=== PATIENT | male | born 1955 | race Two or more races ===

== ENCOUNTER 2017-09-05 21:45 | Emergency (ER) | payer MEDICARE ==
--- NOTE | 2017-09-05 22:09 | RADIOLOGY REPORT (SQ) ---
EXAM DESCRIPTION: CT HEAD WITHOUT COMPLETED DATE/TIME: 09/05/2017 9:54 pm REASON FOR STUDY: stroke alert COMPARISON: None. TECHNIQUE: Axial images acquired through the brain without intravenous contrast. Images reviewed wi th bone, brain and subdural windows. Images stored on PACS. All CT scanners at this facility use dose modulation, iterative reconstruction, and/or weight based d osing when appropriate to reduce radiation dose to as low as reasonably achievable (ALARA). [facility]: Dose Right [facility]: CareDose [facility]: Dose Right [facility]: Teradose 4D [facility]: [employer] RADIATION DOSE: CT Rad equipment meets quality standard of care and radiation dose reduction techniq ues were employed. CTDIvol: 64.6 mGy. DLP: 1163 mGy-cm. mGy. LIMITATIONS: None. FINDINGS: VENTRICLES: Normal. CEREBRUM: No masses. No hemorrhage. No midline shift. Areas of low density in the white matter mos t likely due to chronic micro-vascular ischemic change. Note is made of a lacunar infarct involving the left caudate. No evidence for acute infarction. CEREBELLUM: No masses. No hemorrhage. No alteration of density. No evidence for acute infarction. EXTRAAXIAL SPACES: No fluid collections. No masses. ORBITS AND GLOBE: No intra- or extraconal masses. Normal contour of globe without masses. CALVARIUM: No fracture. PARANASAL SINUSES: No fluid or mucosal thickening. SOFT TISSUES: No mass or hematoma. OTHER: No other significant finding. IMPRESSION: MILD CHRONIC CHANGES OF MICROVASCULAR ISCHEMIA. NO ACUTE PROCESS. EVIDENCE OF ACUTE STROKE: NO. COMMENT: Pertinent positive or negative findings of the imaging study reported as a CRITICAL EXAM t o TIKI Vis at22:02 on 09/05/2017. Category of Critical Exam: Stroke protocol TECHNICAL DOCUMENTATION: JOB ID: [id number] Quality ID # [id number]: Final reports with documentation of one or more dose reduction techniques (e.g., Au tomated exposure control, adjustment of the mA and/or kV according to patient size, use of iterative reconstruction technique) 2010 [employer]- All Rights Reserved
[2017-09-05 22:12] LABS: ABSOLUTE BASOPHILS # (AUTO) 0.1 10^3/uL (0.0-0.2); ABSOLUTE EOSINOPHILS # (AUTO) 0.2 10^3/uL (0.0-0.6); ABSOLUTE LYMPHOCYTES (AUTO) 1.8 10^3/uL (0.5-4.7); ABSOLUTE MONOCYTES (AUTO) 0.9 10^3/uL (0.1-1.4); ABSOLUTE NEUT (AUTO) 4.9 10^3/uL (1.7-8.2); BASOPHILS % (AUTO) 0.9 % (0-2); HEMATOCRIT 44.6 % (37.9-51.0); HEMOGLOBIN 14.8 g/dL (13.5-17.0); LYMPHOCYTES % (AUTO) 23.1 % (13-45); MEAN CORPUSCULAR HEMOGLOBIN 29.4 pg (27.0-33.4); MEAN CORPUSCULAR HGB CONC 33.2 g/dL (32.0-36.0); MEAN CORPUSCULAR VOLUME 89 fl (80-97); MONOCYTES % (AUTO) 11.5 % (3-13); PLATELET COUNT 229 10^3/uL (150-450); RED BLOOD COUNT 5.04 10^6/uL (4.35-5.55); RED CELL DISTRIBUTION WIDTH 14.6 % (11.5-14.0); SEGMENTED NEUTROPHILS % (AUTO) 62.5 % (42-78); TOTAL CELLS COUNTED % (AUTO) 100 %; WHITE BLOOD COUNT 7.8 10^3/uL (4.0-10.5)
--- NOTE | 2017-09-05 22:16 | RADIOLOGY REPORT (SQ) ---
EXAM DESCRIPTION: CHEST SINGLE VIEW COMPLETED DATE/TIME: 09/05/2017 9:51 pm REASON FOR STUDY: stroke alert COMPARISON: None. EXAM PARAMETERS: NUMBER OF VIEWS: One view. TECHNIQUE: Single frontal radiographic view of the chest acquired. RADIATION DOSE: NA LIMITATIONS: None. FINDINGS: LUNGS AND PLEURA: No opacities, masses or pneumothorax. No pleural effusion. MEDIASTINUM AND HILAR STRUCTURES: No masses. Contour normal. HEART AND VASCULAR STRUCTURES: Heart normal in size. Normal vasculature. BONES: No acute findings. HARDWARE: Mediastinal surgical changes. OTHER: No other significant finding. IMPRESSION: NO ACUTE RADIOGRAPHIC FINDING IN THE CHEST. TECHNICAL DOCUMENTATION: JOB ID: [id number]- All Rights Reserved
[2017-09-05 22:22] LABS: PARTIAL THROMBOPLASTIN TIME 29.5 SEC (23.5-35.8)
[2017-09-05 22:26] LABS: ALANINE AMINOTRANSFERASE 22 U/L (21-72); ALBUMIN 4.2 g/dL (3.5-5.0); ALKALINE PHOSPHATASE 61 U/L (38-126); ANION GAP 10 (5-19); ASPARTATE AMINO TRANSFERASE 19 U/L (17-59); BILIRUBIN,DIRECT 0.2 mg/dL (0.0-0.4); BILIRUBIN,TOTAL 0.4 mg/dL (0.2-1.3); BLOOD UREA NITROGEN 29 mg/dL (7-20); CALCIUM 9.7 mg/dL (8.4-10.2); CARBON DIOXIDE 32 mmol/L (22-30); CHLORIDE 101 mmol/L (98-107); CREATINE KINASE 97 U/L (55-170); GLUCOSE 173 mg/dL (75-110); INTERNATIONAL RATION (INR) 0.95; POTASSIUM 3.9 mmol/L (3.6-5.0); PROTHROMBIN TIME 13.4 SEC (11.4-15.4); SODIUM 142.6 mmol/L (137-145); TOTAL PROTEIN 6.6 g/dL (6.3-8.2)
[2017-09-05 22:36] LABS: CREATINE KINASE MB 1.11 ng/mL (<4.55)
[2017-09-05 22:38] LABS: TROPONIN I < 0.012 ng/mL
--- NOTE | 2017-09-05 23:11 | ER Document Report ---
ED Neuro Symptoms/Deficit - General Mode of Arrival: Medic Information source: Patient Notes: 62 year old male with history of prior CVA (2014; no residual deficits) and an aortic dissection (2001; repaired in [place], [place]) presents to the ED via EMS after developing right hand weakness and difficulty speaking at 2044 this evening. Patient reports that his symptoms are similar to when he had a stroke in the past. Patient denies any difficulty moving his right lower extremity. Patient denies headache, neck pain, blurry vision, chest pain, abdominal pain, nausea, vomiting, diarrhea, or shortness of breath. Patient had an ultrasound of his bilateral carotids following the CVA in 2014. Patient is on Aspirin, but is not on any other blood thinning medications. PCP: TIKI Menon. TRAVEL OUTSIDE OF THE [place] IN LAST 30 DAYS: No - HPI Patient complains to provider of: Weakness - right hand Onset: This evening - 2044 Loss of consciousness: No loss of consciousness Was STROKE ALERT Called: Yes Baseline Cognitive: Alert, oriented X 3 Alert To: Name/Voice Patient Orientation: Person, Place, Time, Events New weakness: RUE Associated symptoms: Other - see notes above <TOMEKA MOJICA - Last Filed: 09/06/17 00:50> <DAR FREDERICK - Last Filed: 09/06/17 00:55> - General Chief Complaint: S/S of Possible Stroke Stated Complaint: RIGHT SIDE WEAKNESS Time Seen by Provider: 09/05/17 22:09 - Related Data Allergies/Adverse Reactions: No Known Allergies Allergy (Unverified 09/05/17 23:14) Past Medical History - General Information source: Patient - Social History Smoking Status: Never Smoker Chew tobacco use (# tins/day): No Frequency of alcohol use: None Drug Abuse: None Family History: Reviewed & Not Pertinent - Past Medical History Cardiac Medical History: Reports: Other - Aortic Arch Dissection (2002) Neurological Medical History: Reports: Hx Cerebrovascular Accident - 2014 Past Surgical History: Reports: Other - Aortic Arch dissection repair <TOMEKA MOJICA - Last Filed: 09/06/17 00:50> Review of Systems - Review of Systems Constitutional: No symptoms reported EENT: No symptoms reported. denies: Blurred vision Cardiovascular: No symptoms reported. denies: Chest pain Respiratory: No symptoms reported Gastrointestinal: No symptoms reported. denies: Abdominal pain, Diarrhea, Nausea, Vomiting Genitourinary: No symptoms reported Male Genitourinary: No symptoms reported Musculoskeletal: No symptoms reported Skin: No symptoms reported Hematologic/Lymphatic: No symptoms reported Neurological/Psychological: See HPI, Weakness - right upper extremity, Speech impairment -: Yes All other systems reviewed and negative <TOMEKA MOJICA - Last Filed: 09/06/17 00:50> Physical Exam - Vital signs Vitals: BP 175/73 H 09/05/17 21:58 - Notes Notes: GENERAL: Alert, interacts well. HEAD: Normocephalic, atraumatic. Slight right sided facial droop. EYES: Pupils equal, round, and reactive to light. Extraocular movements intact. ENT: Oral mucosa moist, tongue midline. NECK: Full range of motion. Supple. Trachea midline. LUNGS: Clear to auscultation bilaterally, no wheezes, rales, or rhonchi. No respiratory distress. HEART: Regular rate and rhythm. No gallops, or rubs. 3/6 systolic murmur. ABDOMEN: Soft, non-tender. Bowel sounds present in all 4 quadrants. Non- distended. EXTREMITIES: Moves all 4 extremities spontaneously. No edema, radial and dorsalis pedis pulses 2/4 bilaterally. No cyanosis. Slight ataxia of the right upper extremity. Slight weakness to the right upper extremity. NEUROLOGICAL: Alert and oriented x3. Patellar and bicep DTRs 2+ bilaterally. Normal [id number]. Slight ataxia of the right upper extremity with finger-to- nose test. Slurred speech with some aphasia and difficulty with word finding. See NIH stroke scale. PSYCH: Normal affect, normal mood. SKIN: Warm, dry, normal turgor. No rashes or lesions noted. <TOMEKA MOJICA - Last Filed: 09/06/17 00:50> - Vital signs Vitals: Pulse Resp BP Pulse Ox 76 16 165/68 H 100 09/05/17 21:57 09/05/17 21:57 09/05/17 21:57 09/05/17 21:57 <DAR FREDERICK - Last Filed: 09/06/17 00:55> Course - Vital Signs Vital signs: Temp Pulse Resp BP Pulse Ox 97.1 F 64 16 173/91 H 99 09/05/17 22:00 09/05/17 22:02 09/05/17 22:02 09/05/17 22:02 09/05/17 22:02 - Laboratory Result Diagrams: 09/05/17 21:55 09/05/17 21:55 Laboratory results interpreted by me: 09/05/17 09/05/17 21:55 21:55 RDW 14.6 H Carbon Dioxide 32 H BUN 29 H Creatinine 1.50 H Est GFR ( Amer) 57 L Est GFR (Non-Af Amer) 47 L Glucose 173 H - Consults Rg Franks consulted: 22:48 Reason for consultation: 09/05/17 22:48 Rg called for a neuro consult. Told will receive a call back when the neurologist is available. Dr. Mar Time consulted: 23:07 Reason for consultation: 09/05/17 23:07 Patient was discussed with Dr. Mar who states that an aortic arch dissection is a contraindication, but given how remote the dissection is (15 years), she thinks it is ok to discuss that there is a slight increased risk of bleeding. She still recommends giving tPA. Dr. Lebron Time consulted: 23:58 Reason for consultation: 09/06/17 23:58 Patient was discussed with Dr. Lebron who agrees to admit the patient. In agreement to start the patient on sobetalol and labetalol. No other recommendations. Agrees with flying the patient. <TOMEKA MOJICA - Last Filed: 09/06/17 00:50> - Re-evaluation Re-evalutation: 09/05/17 23:54 Initial CAT scan of the head did not show any acute bleed or very large infarction only an old lacunar stroke. Discussed the possibility of TPA with the patient, no chest pain, no neck pain, no symptoms suggestive of dissection. I did consult with neurologist Dr. Mar at [facility] who agreed that there is a slightly increased risk of bleeding from the very remote aortic dissection but that the patient should likely receive TPA. I discussed this with the family they are somewhat nervous so we did perform a CT angiogram of the head and neck to look for large vessel occlusion that might be amenable to clot retrieval. This revealed an aortic arch dissection. At this point we are obviously not going to give TPA. Patient has been placed on an esmolol drip and a labetalol drip as well for blood pressure and heart rate control. CT angiogram of the chest and abdomen has been performed, I am still waiting official interpretation from radiology however it appears to extend from the arch down to the left iliac. I have placed a phone call to Rg to discuss this with her cardiothoracic surgeon. Family is aware of this. 09/06/17 00:47 Aortic dissection is demonstrated starting at the level of the descending aorta noted great vessel origin nation from the true lumen and active contrast opacification involving the false lumen at the level of the arch, it extends into the proximal left iliac noting the origins of the major visceral branches arising from the true lumen, there is a small amount of extension into the left renal artery. Impression is [place] type a aortic dissection. 09/06/17 00:52 CBC unremarkable, coags normal, CMP shows some acute renal failure with BUN of 29 creatinine of 1.50, cardiac enzymes negative, EKG is nonischemic, chest x- ray shows postoperative changes but no widened mediastinum. Helicopter is at bedside, patient rechecked, heart rate is 79, blood pressure is 137/72, still on the esmolol and labetalol drips which are being continuously titrated. Stable for transport at this time. - Vital Signs Vital signs: Temp Pulse Resp BP Pulse Ox 97.1 F 64 16 173/91 H 99 09/05/17 22:00 09/05/17 22:02 09/05/17 22:02 09/05/17 22:02 09/05/17 22:02 - Laboratory Result Diagrams: 09/05/17 21:55 09/05/17 21:55 Laboratory results interpreted by me: 09/05/17 09/05/17 21:55 21:55 RDW 14.6 H Carbon Dioxide 32 H BUN 29 H Creatinine 1.50 H Est GFR ( Amer) 57 L Est GFR (Non-Af Amer) 47 L Glucose 173 H - EKG Interpretation by Me Additional EKG results interpreted by me: 09/06/17 00:54 EKG shows sinus rhythm at a rate of 75, left anterior hemiblock, left axis deviation, poor R-wave progression, no ST segment elevations or depressions, there are nonspecific T-wave inversions in aVL per my interpretation. <DAR FREDERICK - Last Filed: 09/06/17 00:55> Critical Care Note - Critical Care Note Total time excluding time spent on procedures (mins): 60 <DAR FREDERICK - Last Filed: 09/06/17 00:55> ED Alteplase Inc/Exc Criteria - Date/Time patient last known well: Date/Time: 2044 - Inclusion Criteria: 1: Patient presented to ED within 3 hours of acute ischemic stroke symptom onset ? -: Yes 2: Did baseline CT exclude intracranial hemorrhage and/or other risk factors? -: Yes 3: Is the age of the patient 18 years of age or greater? -: Yes : If any of the above questions are answered "NO" then stop, patient is not a candidate for Alteplase, : If all of the above questions are answered "YES" then continue with Exclusion Criteria. - Exclusion Criteria: 1: Is there evidence of intracranial hemorrhage on baseline CT? -: No 2: Is there suspicion of subarachnoid hemorrhage (even if CT negative)? -: No 3: Is there a history of serious head trauma, recent previous stroke or RI within 3 months? -: No 4: Does the patient have a clinical presentation consistent with RI or post-RI pericarditis? -: No 5: Is there history of intracranial hemorrhage? -: No 6: On repeated measurement is Systolic BP greater than 185mmHg or Diastolic BP greater that 110 mmHg and is aggressive treatment needed to reduce blood pressure to these limits (e.g. constant infusion of an anti-hypertensive)? -: No 7: Did the patient awake with stroke symptoms? -: No 8: Has the patient had a lumbar puncture or an arterial puncture at a non- compressile site within 7 days? -: No 9: With in the last 14 days did the patient have surgery or major trauma? -: No 10: Is the patient or less than 2 weeks? -: No 11: Was there any active bleeding or acute trauma? -: No 12: Does the patient have intracranial neoplasm, arteriovenous malformation or aneurysm? 13: Does the patient have abnormal glucose (less than 50 or greater than 400mg/ dl)? Record glucose in Comment. -: No 14: Patient has rapidly improving symptoms at the time Alteplase is to be Administered. -: No 15: Does the patient have any risks for bleeding, including but not limited to: a.: Current use of Coumadin with PT greater than 15 seconds or INR greater than 1.7. b.: Current use of Pradaxa (Dabigatran). c.: Heparin administereed within the past 48 hours and PTT elevated. d.: Platelet count less than 100,000/mm. e.: Major surgery or serious trauma within 14 days. f.: Gastrointestinal or gynecological urinary bleeding within 14 days. g.: Myocardial Infarction (RI) within 3 months. -: No : If the answer to any of the above questions is "YES" then stop, the patient is not a candidate for Alteplase. : If the answer to all of the above questions is "NO" then the patient may be eligible for the Administration of Alteplase. : If the patient is noted to have seizure activity at onset of Stroke symptoms; Consult Neurologist for further evaluation. - The patient is: -: Included and is eligible to receive Alteplase. *Initiate bed placement at higher level of care* Reviewd risks & benefits of thrombolytic therapy: I have reviewed the risks and benefits of thrombolytic therapy with the patient and/or his/her family. Yes - See course. -: Excluded and not eligible to receive Alteplase for the above exclusions. -: Excluded and not eligible to receive Alteplase for other reasons (specify in comments): <TOMEKA MOJICA - Last Filed: 09/06/17 00:50> ED NIH Stroke Scale - NIH Stroke Scale When completed:: Before Alteplase *: 1. NIH scale should be completed with appropriate accompanying assessment tools. *: 2. The NIH should reflect what the patient is capable of doing and should not be coached by the clinician. 1a. Level of Consciousness: 0=Alert;keenly responsive -: 1=Drowsy -: 2=Obtunded -: 3=Coma/unresponsive or reflex to noxious stimuli. 1a. Responses: 0 1b. Orientation Questions: a. What month is it? -: b. How old are you? -: 0=Answers both questions correctly. -: 1=Answers one question correctly or patient is intubated or has orotracheal trauma. -: 2=Answers neither question correctly. 1b. Responses: 0 1c. Response to commands: a. Open and close eyes? -: b. Ribbon Lapper Tender and release hand? -: Credit is given despite weakness. Demonstration of task is permitted. Substitute command if hands cannot be used. -: 0=Performs both tasks correctly -: 1=Performs one task correctly -: 2=Performs neither task correctly 1c. Responses: 0 2. Gaze: Establish eye contact and instruct patient to "Follow my finger" -: 0=Normal -: 1=Partial gaze palsy. Gaze is abnormal in one or both eyes, but where forced deviation or total gaze paresis is not present. -: 2=Forced deviation or total gaze paresis. 2. Responses: 0 3. Visual Valenzuela: Sees fingers in all four quadrants. -: 0=No visual loss. -: 1=Partial hemianopsia. -: 2=Complete hemianopsia. -: 3=Bilateral hemianopsia (including Cortical blindness) 3. Responses: 0 4. Facial Movement: Instruct patient to: -: a. Show me your teeth -: b. Raise your eyebrows -: c. Close your eyes -: d. Smile -: 0=Normal symmetrical movement -: 1=Minor paralysis (flattened nasolabial fold, asymmetry on smiling). -: 2=Partial paralysis (total or near total paralysis of lower face). -: 3=Complete paralysis of upper and lower face 4. Responses: 1 5. Motor functions (left arm): Alternate sides and extend each arm with palms down (90 degrees if sitting or 45 degrees for supine). -: 0=No drift;limb holds for full 10 seconds. -: 1=Drift; limb holds but drifts down before full 10 seconds, but does not hit bed. -: 2=Some effort against gravity; limb cannot get to or maintain position. -: 3=No effort against gravity; limb falls. -: 4=No movement. -: UN=Amputation, joint fusion, explain in comments. 5. Responses (left arm): 0 5. Motor Functions (right arm): Alternate sides and extend each arm with palms down (90 degrees if sitting or 45 degrees for supine). -: 0=No drift;limb holds for full 10 seconds. -: 1=Drift; limb holds but drifts down before full 10 seconds, but does not hit bed. -: 2=Some effort against gravity; limb cannot get to or maintain position. -: 3=No effort against gravity; limb falls. -: 4=No movement. -: UN=Amputation, joint fusion, explain in comments. 5. Responses (right arm): 0 6. Motor Functions (left leg): With patient lying supine, alternate sides and extend each leg (30 degrees always while supine). -: 0=No drift, leg holds position for full 5 seconds -: 1=Drift; leg falls before full 5 seconds but does not hit bed. -: 2=Some effort against gravity, leg falls to bed but some effort against gravity. -: 3=No effort against gravity, leg falls to bed immediately. -: 4=No movement. -: UN=Amputation, joint fusion; explain in comments. 6. Responses (left leg): 0 6. Motor Functions (right leg): With patient lying supine, alternate sides and extend each leg (30 degrees always while supine). -: 0=No drift, leg holds position for full 5 seconds -: 1=Drift; leg falls before full 5 seconds but does not hit bed. -: 2=Some effort against gravity, leg falls to bed but some effort against gravity. -: 3=No effort against gravity, leg falls to bed immediately. -: 4=No movement. -: UN=Amputation, joint fusion; explain in comments. 6. Responses (right leg): 0 7. Limb Ataxia: With eyes open instruct patient to: -: a. "Touch your finger to your nose". -: b. "Touch your heel to your van" -: 0=Absent -: 1=Present in one limb. -: 2=Present in two limbs. -: UN=Amputation or joint fusion; explain in comments. 7. Responses: 1 8. Sensory: Test sensation using pinprick or noxious stimuli. Test as many body parts as possible. -: 0=Normal;no sensory loss -: 1=Mile to moderate sensory loss (patient feels pin prick but is less sharp on affected side). -: 2=Severe or total sensory loss. 8. Responses: 0 9. Best Language: Instruct patient to: -: a. "Describe what you see in this picture." -: b. "Name the items in this picture." -: c. "Read these sentences." -: 0=No aphasia, normal -: 1=Mild to moderate aphasia. -: 2=Severe aphasia -: 3=Mute, global aphasia, no usable speech or auditory comprehension. 9. Responses: 1 10. Articulation, Dysarthia: Instruct patient to: -: "Read these words" or "Repeat these words" -: 0=Normal -: 1=Mild to moderate; patient may slur some words but can be understood without difficulty. -: 2=Severe; patients speech so slurred as to be unintelligible in the absence of dysphasia. -: UN=Intubated or other physical barrier, explain in comments. 10. Responses: 1 11. Extinction or inattention: 0=No abnormality -: 1= Visual, tactile, auditory, spatial, or personal inattention or extinction to bilateral simulation in one or the sensory modalities. -: 2=Profound sandoval-inattention or sandoval-inattention to more than one modality; does not recognize own hand. 11. Responses: 0 Total Score: 4 Notes: Conducted at 2230. <TOMEKA MOJICA - Last Filed: 09/06/17 00:50> Discharge <TOMEKA MOJICA - Last Filed: 09/06/17 00:50> - Discharge Scribe Attestation: 09/06/17 00:55 I personally performed the services described in the documentation, reviewed and edited the documentation which was dictated to the scribe in my presence, and it accurately records my words and actions. <DAR FREDERICK - Last Filed: 09/06/17 00:55> - Discharge Clinical Impression: Aortic dissection Qualifiers: Aortic location: thoracoabdominal aorta Qualified Code(s): I71.03 - Dissection of thoracoabdominal aorta CVA (cerebral vascular accident) Qualifiers: CVA mechanism: unspecified Qualified Code(s): I63.9 - Cerebral infarction, unspecified Hypertension Qualifiers: Hypertension type: essential hypertension Qualified Code(s): I10 - Essential ( primary) hypertension Acute renal failure Qualifiers: Acute renal failure type: unspecified Qualified Code(s): N17.9 - Acute kidney failure, unspecified Condition: Serious Disposition: [facility] Referrals: RYANNE CANNON PA [Primary Care Provider] - Follow up as needed Scribe Documentation - Scribe Written by Scribe:: Mary Longo, 09/06/2017 0010 acting as scribe for :: Jhon <TOMEKA MOJICA - Last Filed: 09/06/17 00:50>
--- NOTE | 2017-09-05 23:33 | RADIOLOGY REPORT (SQ) ---
EXAM DESCRIPTION: CTA NECK COMPLETED DATE/TIME: 09/05/2017 11:13 pm REASON FOR STUDY: acute stroke. look for large vessel occlusion COMPARISON: None. TECHNIQUE: Axial dynamic scanning technique with dynamic contrast enhancement through the extra-tobacco scrap sifter nial carotid and vertebral arteries. Multiplanar reconstruction. 3-D MIPS and Volume-rendered imag es acquired at the workstation and saved to PACS. Images are reviewed in soft tissue, bone, lung w indows. All CT scanners at this facility use dose modulation, iterative reconstruction, and/or weight based d osing when appropriate to reduce radiation dose to as low as reasonably achievable (ALARA). [facility]: Dose Right [facility]: CareDose [facility]: Dose Right [facility]: Teradose 4D [facility]: [employer] CONTRAST TYPE AND DOSE: contrast/concentration: Isovue 300.00 mg/ml; Total Contrast Delivered: 70.0 ml; Total Saline Delivered: 75.1 ml RENAL FUNCTION: BUN 29; creatinine 1.5 LIMITATIONS: None. FINDINGS: AORTIC ARCH: An aortic dissection is demonstrated, noting contrast opacification within th e false lumen. Normal three-vessel origin arises from the true lumen. Bilateral subclavian arteries are patent. RIGHT CAROTIDS: Patent common, internal and external carotid arteries without suggestion of significa nt stenosis or irregular plaque. No dissection. RIGHT VERTEBRAL: Patent. No dissection. LEFT CAROTIDS: Patent common, internal and external carotid arteries without suggestion of significan t stenosis or irregular plaque. No dissection. LEFT VERTEBRAL: Patent. No dissection. OTHER: No other significant finding. OTHER: 3-D reconstructions confirm findings. IMPRESSION: 1. PARTIALLY IMAGED AORTIC DISSECTION NOTING CONTRAST OPACIFICATION WITHIN THE FALSE BEATRIS MEN. 2. NORMAL CTA OF THE EXTRA-CRANIAL CAROTID AND VERTEBRAL ARTERIES. COMMENT: Pertinent findings on the imaging study reported as a CRITICAL RESULT to DAR Melo t23:20 on 09/05/2017. Category of Critical Result: Aortic dissection. Quality ID #[id number]: Measurements of distal internal carotid diameter were used as the denominator for st enosis measurement. TECHNICAL DOCUMENTATION: JOB ID: [id number] Quality ID # [id number]: Final reports with documentation of one or more dose reduction techniques (e.g., Au tomated exposure control, adjustment of the mA and/or kV according to patient size, use of iterative reconstruction technique) 2010 [employer]- All Rights Reserved
--- NOTE | 2017-09-05 23:35 | RADIOLOGY REPORT (SQ) ---
EXAM DESCRIPTION: CTA HEAD COMPLETED DATE/TIME: 09/05/2017 11:13 pm REASON FOR STUDY: acute stroke. look for large vessel occlusion COMPARISON: None. TECHNIQUE: Post IV contrast scanning, thin section axial imaging through the brain to evaluate the a rterial structures. Source and MIP images are saved and reviewed on PACS. Advanced 3D imaging as volume-rendering, MIPs, SSD performed? yes All CT scanners at this facility use dose modulation, iterative reconstruction, and/or weight based d osing when appropriate to reduce radiation dose to as low as reasonably achievable (ALARA). [facility]: Dose Right [facility]: CareDose [facility]: Dose Right [facility]: Teradose 4D [facility]: Intoo CONTRAST TYPE AND DOSE: 70 mL Isovue 300- low osmolar. RENAL FUNCTION: BUN 29; creatinine 1.50 LIMITATIONS: None. FINDINGS: [place]: The anterior, middle, posterior cerebral arteries are all patent. No ev idence of aneurysm or focal stenosis. POSTERIOR CIRCULATION: The distal vertebral arteries are patent as is the basilar artery. No aneurysm . BRAIN: No gross enhancing lesions as visualized. The superior cerebral hemispheres are not included in the field of view. BONES: Intact as visualized. SINUSES: No fluid or mucosal thickening. OTHER: The images provided include the CTA of the carotid artery is which reveals a partially imaged aortic dissection characterized on the neck CT report. IMPRESSION: NO CTA EVIDENCE OF STENOSIS OR ANEURYSM OF THE [place]. TECHNICAL DOCUMENTATION: JOB ID: [id number] Quality ID # [id number]: Final reports with documentation of one or more dose reduction techniques (e.g., Au tomated exposure control, adjustment of the mA and/or kV according to patient size, use of iterative reconstruction technique) 2010 [employer]- All Rights Reserved
[2017-09-05] MEDS ORDERED: NICARDIPINE HCL RTU, ISO-OS 20 MG/200 ML RTUINJ IV PRN (23:45)
[2017-09-05] MEDS ORDERED: ESMOLOL HCL/SOD CL 2,500 MG/250 ML RTUINJ IV ONE (23:58)
[2017-09-06] MEDS ORDERED: ESMOLOL HCL/SOD CL 2,500 MG/250 ML RTUINJ IV PRN (00:01)
--- NOTE | 2017-09-06 00:10 | RADIOLOGY REPORT (SQ) ---
EXAM DESCRIPTION: CTA CHEST; CTA ABDOMEN/PELVIS W WO COMPLETED DATE/TIME: 09/05/2017 11:48 pm REASON FOR STUDY: aortic dissection COMPARISON: CTA of the head and neck performed 09/05/2017 TECHNIQUE: CT scan of the abdominal aorta extending to the iliac bifurcation performed with and with out intravenous contrast using helical scanning technique with dynamic intravenous contrast injection . Images reviewed with lung, soft tissue, and bone windows. Reconstructed coronal and sagittal MPR im ages reviewed. All images stored on PACS. Advanced 3D imaging as volume rendering, MIPS, SSD performed? yes All CT scanners at this facility use dose modulation, iterative reconstruction, and/or weight based d osing when appropriate to reduce radiation dose to as low as reasonably achievable (ALARA). [facility]: Dose Right [facility]: CareDose [facility]: Dose Right [facility]: Teradose 4D [facility]: MD [employer] CONTRAST TYPE AND DOSE: contrast/concentration: Isovue 300.00 mg/ml; Total Contrast Delivered: 100.0 ml; Total Saline Delivered: 90.1 ml RENAL FUNCTION: BUN 29; creatinine 1.5 LIMITATIONS: None. FINDINGS: AORTA AND VESSELS: An aortic dissection is demonstrated, starting at the level of the asce nding aorta noting great vessel origination from the true lumen and active contrast opacification inv olving the false lumen at the level of the arch. The dissection extends into the proximal left iliac artery noting the origins of the major visceral branches (noting a small amount of extension into th e left renal artery) arising from the true lumen. The false lumen demonstrates homogeneous contrast opacification from the level of the distal thoracic aorta caudally. LUNGS: No significant findings. No nodules or infiltrates. LIVER: Normal size. No masses or dilated ducts. SPLEEN: Normal size. No focal lesions. PANCREAS: No masses. No significant calcifications. No adjacent inflammation or peripancreatic fluid collections. Pancreatic duct not dilated. GALLBLADDER: Gallstones. No inflammatory changes to suggest cholecystitis. ADRENAL GLANDS: No significant masses or asymmetry. RIGHT KIDNEY AND URETER: No mass, calculi or urinary tract obstruction. LEFT KIDNEY AND URETER: No mass, calculi or urinary tract obstruction. RETROPERITONEUM: No retroperitoneal adenopathy, hemorrhage or masses. BOWEL AND PERITONEAL CAVITY: No masses or inflammatory changes. No free fluid or peritoneal masses. APPENDIX: Not visualized. ABDOMINAL WALL: No masses. No hernias. BONY STRUCTURES: No significant or acute findings. 3-D IMAGING: Confirms the above findings. OTHER: No other significant finding. IMPRESSION: [place] type A aortic dissection extending from the ascending aorta to the left iliac a rtery, noting active contrast opacification of the false lumen at the level of the aortic arch and ho mogeneous opacification of the false lumen at the level of the abdominal aorta. TECHNICAL DOCUMENTATION: JOB ID: [id number] Quality ID # [id number]: Final reports with documentation of one or more dose reduction techniques (e.g., Au tomated exposure control, adjustment of the mA and/or kV according to patient size, use of iterative reconstruction technique) 2010 [employer]- All Rights Reserved
--- NOTE | 2017-09-06 00:10 | RADIOLOGY REPORT (SQ) ---
EXAM DESCRIPTION: CTA CHEST; CTA ABDOMEN/PELVIS W WO COMPLETED DATE/TIME: 09/05/2017 11:48 pm REASON FOR STUDY: aortic dissection COMPARISON: CTA of the head and neck performed 09/05/2017 TECHNIQUE: CT scan of the abdominal aorta extending to the iliac bifurcation performed with and with out intravenous contrast using helical scanning technique with dynamic intravenous contrast injection . Images reviewed with lung, soft tissue, and bone windows. Reconstructed coronal and sagittal MPR im ages reviewed. All images stored on PACS. Advanced 3D imaging as volume rendering, MIPS, SSD performed? yes All CT scanners at this facility use dose modulation, iterative reconstruction, and/or weight based d osing when appropriate to reduce radiation dose to as low as reasonably achievable (ALARA). [facility]: Dose Right [facility]: CareDose [facility]: Dose Right [facility]: Teradose 4D [facility]: [employer] CONTRAST TYPE AND DOSE: contrast/concentration: Isovue 300.00 mg/ml; Total Contrast Delivered: 100.0 ml; Total Saline Delivered: 90.1 ml RENAL FUNCTION: BUN 29; creatinine 1.5 LIMITATIONS: None. FINDINGS: AORTA AND VESSELS: An aortic dissection is demonstrated, starting at the level of the asce nding aorta noting great vessel origination from the true lumen and active contrast opacification inv olving the false lumen at the level of the arch. The dissection extends into the proximal left iliac artery noting the origins of the major visceral branches (noting a small amount of extension into th e left renal artery) arising from the true lumen. The false lumen demonstrates homogeneous contrast opacification from the level of the distal thoracic aorta caudally. LUNGS: No significant findings. No nodules or infiltrates. LIVER: Normal size. No masses or dilated ducts. SPLEEN: Normal size. No focal lesions. PANCREAS: No masses. No significant calcifications. No adjacent inflammation or peripancreatic fluid collections. Pancreatic duct not dilated. GALLBLADDER: Gallstones. No inflammatory changes to suggest cholecystitis. ADRENAL GLANDS: No significant masses or asymmetry. RIGHT KIDNEY AND URETER: No mass, calculi or urinary tract obstruction. LEFT KIDNEY AND URETER: No mass, calculi or urinary tract obstruction. RETROPERITONEUM: No retroperitoneal adenopathy, hemorrhage or masses. BOWEL AND PERITONEAL CAVITY: No masses or inflammatory changes. No free fluid or peritoneal masses. APPENDIX: Not visualized. ABDOMINAL WALL: No masses. No hernias. BONY STRUCTURES: No significant or acute findings. 3-D IMAGING: Confirms the above findings. OTHER: No other significant finding. IMPRESSION: [place] type A aortic dissection extending from the ascending aorta to the left iliac a rtery, noting active contrast opacification of the false lumen at the level of the aortic arch and ho mogeneous opacification of the false lumen at the level of the abdominal aorta. TECHNICAL DOCUMENTATION: JOB ID: [id number] Quality ID # [id number]: Final reports with documentation of one or more dose reduction techniques (e.g., Au tomated exposure control, adjustment of the mA and/or kV according to patient size, use of iterative reconstruction technique) 2010 [employer]- All Rights Reserved
[2017-09-06 01:10] VITALS: BP 122/86
--- NOTE | 2017-09-06 17:28 | EKG REPORT ---
SEVERITY:- ABNORMAL ECG - SINUS RHYTHM PROBABLE LEFT ATRIAL ABNORMALITY LEFT ANTERIOR FASCICULAR BLOCK : Confirmed by: Belinda Hua 06-Sep-2017 12:19:01
== END 2017-09-06 00:56 | disposition short-term general hospital (02) ==
LOC: ER 21:45
DX: I71.03 Dissection of thoracoabdominal aorta (principal); I63.9 Cerebral infarction, unspecified; I10 Essential (primary) hypertension; N17.9 Acute kidney failure, unspecified; R53.1 Weakness; Z86.73 Personal history of transient ischemic attack (TIA), and cerebral infarction without residual deficits; R29.704 NIHSS score 4
CPT/HCPCS: 93005; 99291; 96365; 96368; 36415; 82553; 82962; 82550; 85025; 85610; 85730; 80053; 84484; 71045; 70450; 70496; 70498; 71275; 74174; 93010; J3490 ×2

== ENCOUNTER 2018-06-12 07:57 | Inpatient (IN) | payer MEDICARE ==
[2018-06-12] MEDS ORDERED: ADENOSINE INJ/PF 6 MG/2 ML SDV IV ONE ×2 (08:10→08:55)
--- NOTE | 2018-06-12 08:27 | ER Document Report ---
ED General - General Stated Complaint: SHORTNESS OF BREATH Time Seen by Provider: 06/12/18 08:18 TRAVEL OUTSIDE OF THE [place] IN LAST 30 DAYS: No - HPI Notes: Patient is a 63-year-old male that presents to the emergency department for chief complaint of shortness of breath. Patient had sudden onset of shortness of breath when waking up this morning. HPI is limited because he is on CPAP and having a difficult time speaking. His states yesterday he was fine when he went to bed. This morning shortly after waking up he had sudden onset of symptoms. EMS gave him Vasotec and placed him on CPAP which she states is improving his symptoms. EMS reported he was very diaphoretic and 60% on room air when they found him. He denies history of any lung disease. He does have history of aortic dissection and stroke. He is anticoagulated on aspirin and Plavix. Patient initially denied chest pain but then stated he had some mild pain and pointed to his sternum for location. Further details not able to be obtained because of his acuity. Past Medical History: Diabetes, hypertension, hyperlipidemia, stroke, aortic dissection Past Surgical History: Aortic dissection repair Social History: Unknown Family History: Reviewed and noncontributory for presenting illness Allergies: Reviewed, see documented allergy list. REVIEW OF SYSTEMS: CONSTITUTIONAL : No fever No chills No diaphoresis No recent illness EENT: No vision changes No congestion No sore throat CARDIOVASCULAR: chest pain No palpitations RESPIRATORY: shortness of breath No cough No difficulty breathing GASTROINTESTINAL: No abdominal pain No nausea No vomiting No diarrhea GENITOURINARY: No dysuria No hematuria No difficulty urinating MUSCULOSKELETAL: No back pain No leg pain No arm pain SKIN: No rashes No lesions LYMPHATIC: No swollen, enlarged glands. NEUROLOGICAL: No lightheadedness No headache No weakness No paresthesias PSYCHIATRIC: No anxiety No depression PHYSICAL EXAMINATION: Vital signs reviewed, nursing noted reviewed. GENERAL: Diaphoretic, moderate distress HEAD: Atraumatic, normocephalic. EYES: Eyes appear normal, extraocular movements intact, sclera anicteric, conjunctiva are normal. ENT: nares patent, oropharynx clear without exudates. Moist mucous membranes. NECK: Normal range of motion, supple without lymphadenopathy LUNGS: Diffuse Rales, tachypnea, moderate accessory muscle use HEART: Tachycardic, regular rhythm without murmurs +2/4 DP, PT, and radial pulses bilaterally ABDOMEN: Soft, nontender, normoactive bowel sounds. No rebound, guarding, or rigidity. No masses appreciated. EXTREMITIES: Nontender, good range of motion, no pitting or edema. NEUROLOGICAL: No focal neurological deficits. Moves all extremities spontaneously Motor and sensory grossly intact on exam. PSYCH: Normal mood, normal affect. SKIN: Warm, Dry, normal turgor, no rashes or lesions noted on exposed skin - Related Data Allergies/Adverse Reactions: No Known Allergies Allergy (Unverified 09/05/17 23:14) Past Medical History - Social History Smoking Status: Never Smoker Family History: Reviewed & Not Pertinent Neurological Medical History: Reports: Hx Cerebrovascular Accident - 2015 Renal/ Medical History: Denies: Hx Peritoneal Dialysis Past Surgical History: Reports: Other - Aortic Arch dissection repair Review of Systems - Review of Systems Notes: Dictated Physical Exam - Vital signs Vitals: Resp Pulse Ox 31 H 99 06/12/18 08:04 06/12/18 08:04 - Notes Notes: Dictated Course - Re-evaluation Re-evalutation: 06/12/18 08:25 Vitals reviewed. Nursing notes reviewed. Patient arrived with diffuse rales and rapid heart rate. EKG showed SVT. Patient was given adenosine 6 and 12 with no change in heart rate. 06/12/18 08:51 Patient's care discussed with Dr. Hua who will see him on consultation. He requests patient be given IV Cardizem and placed on Cardizem infusion. He also request stat echo be ordered. 06/12/18 09:52 On reevaluation patient is significantly improved heart rate is now 70 and in normal sinus rhythm and blood pressure 136/76. Dr. Hua did evaluate the patient in the emergency room. He will see him on consult and no further recommendations for treatment at this time were given. Patient's lab work is unremarkable. CT angios did not completely visualize patient's aorta however with his graft I do not suspect re-dissection. Dr. Hua agrees that with his clinical improvement repeating the CT is not currently indicated because dissection is not currently suspected. Patient will be admitted to the hospital , case discussed with Dr. Ba who accepted admission. Patient and family in agreement with plan. He is significantly improved at time of admission - Vital Signs Vital signs: Temp Pulse Resp BP Pulse Ox 147 H 20 136/74 H 99 06/12/18 08:05 06/12/18 09:30 06/12/18 09:30 06/12/18 09:30 - Laboratory Result Diagrams: 06/12/18 08:07 06/12/18 08:07 Laboratory results interpreted by me: 06/12/18 06/12/18 08:07 08:07 RDW 14.2 H Glucose 261 H - EKG Interpretation by Me Additional EKG results interpreted by me: 06/12/18 08:25 Interpreted by myself 0805: Junctional tachycardia, rate 147, normal axis, LVH, prolonged QT After 6 mg adenosine 0815: Junctional tachycardia, rate 147, normal axis, LVH, prolonged QT, unchanged from initial After 12 mg adenosine 0 816: Junctional tachycardia, rate 148, normal axis, prolonged QT, LVH Critical Care Note - Critical Care Note Total time excluding time spent on procedures (mins): 90 - Multiple repeat evaluations and multiple management of dysrhythmia and hemodynamics. Potential for cardiovascular collapse. Discussion with medical manager. Discussions with family. Discharge - Discharge Clinical Impression: SVT (supraventricular tachycardia) Heart failure Qualifiers: Heart failure type: unspecified Heart failure chronicity: acute Qualified Code( s): I50.9 - Heart failure, unspecified Chest pain Qualifiers: Chest pain type: other chest pain Qualified Code(s): R07.89 - Other chest pain ; R07.8 - Other chest pain Disposition: ADMITTED INPATIENT Admitting Provider: Hospitalist Unit Admitted: ICU
[2018-06-12] MEDS ORDERED: LABETALOL HCL INJ 20 MG/4 ML DISP.SYRIN IV ONE (08:30)
[2018-06-12 08:42] LABS: ABSOLUTE EOSINOPHILS # (AUTO) 0.1 10^3/uL (0.0-0.6); ABSOLUTE MONOCYTES (AUTO) 0.4 10^3/uL (0.1-1.4); ABSOLUTE NEUT (AUTO) 4.2 10^3/uL (1.7-8.2); BASOPHILS % (AUTO) 0.9 % (0-2); EOSINOPHILS % (AUTO) 1.7 % (0-6); HEMATOCRIT 45.4 % (37.9-51.0); HEMOGLOBIN 15.4 g/dL (13.5-17.0); LYMPHOCYTES % (AUTO) 17.1 % (13-45); MEAN CORPUSCULAR VOLUME 88 fl (80-97); MONOCYTES % (AUTO) 6.6 % (3-13); PLATELET COUNT 162 10^3/uL (150-450); RED BLOOD COUNT 5.14 10^6/uL (4.35-5.55); RED CELL DISTRIBUTION WIDTH 14.2 % (11.5-14.0); SEGMENTED NEUTROPHILS % (AUTO) 73.7 % (42-78); TOTAL CELLS COUNTED % (AUTO) 100 %; WHITE BLOOD COUNT 5.7 10^3/uL (4.0-10.5)
[2018-06-12] MEDS ORDERED: DILTIAZEM HCL INJ 25 MG/5 ML VIAL IV ONE (08:47)
[2018-06-12] MEDS ORDERED: DILTIAZEM HCL/D5W 125 MG/125 ML RTUINJ IV PRN (08:47)
[2018-06-12 08:54] LABS: ALANINE AMINOTRANSFERASE 25 U/L (21-72); ALBUMIN 4.1 g/dL (3.5-5.0); ALKALINE PHOSPHATASE 54 U/L (38-126); ANION GAP 11 (5-19); ASPARTATE AMINO TRANSFERASE 18 U/L (17-59); BILIRUBIN,DIRECT 0.3 mg/dL (0.0-0.4); BILIRUBIN,TOTAL 0.6 mg/dL (0.2-1.3); BLOOD UREA NITROGEN 20 mg/dL (7-20); CALCIUM 8.8 mg/dL (8.4-10.2); CARBON DIOXIDE 23 mmol/L (22-30); CHLORIDE 107 mmol/L (98-107); GLUCOSE 261 mg/dL (75-110); POTASSIUM 4.2 mmol/L (3.6-5.0); SODIUM 140.8 mmol/L (137-145)
--- NOTE | 2018-06-12 09:30 | RADIOLOGY REPORT (SQ) ---
EXAM DESCRIPTION: CTA CHEST COMPLETED DATE/TIME: 06/12/2018 9:08 am REASON FOR STUDY: dissection COMPARISON: 09/05/2017. TECHNIQUE: CT scan of the chest performed using helical scanning technique with dynamic intravenous contrast injection. Images reviewed with lung, soft tissue and bone windows. Reconstructed coronal and sagittal MPR images reviewed. Additional 3 dimensional post-processing performed to develop Maximal Intensity Projection images ([place] P). All images stored on PACS. All CT scanners at this facility use dose modulation, iterative reconstruction, and/or weight based d osing when appropriate to reduce radiation dose to as low as reasonably achievable (ALARA). [facility]: Dose Right [facility]: CareDose [facility]: Dose Right [facility]: Teradose 4D [facility]: [employer]oom[employer] CONTRAST TYPE AND DOSE: contrast/concentration: Isovue 350.00 mg/ml; Total Contrast Delivered: 75.0 ml; Total Saline Delivered: 72.0 ml Contrast bolus optimized for the pulmonary arteries. Not diagnostic for the aorta. RENAL FUNCTION: Not available. RADIATION DOSE: . LIMITATIONS: None. FINDINGS: LUNGS AND PLEURA: Scattered ill-defined opacities. Moderate bilateral pleural effusions, right greater than left. AORTA AND GREAT VESSELS: No aneurysm. Contrast bolus not optimized for the aorta. HEART: No pericardial effusion. No significant coronary artery calcifications. PULMONARY ARTERIES: No emboli visualized in the main pulmonary arteries or the segmental branches. HILAR AND MEDIASTINAL STRUCTURES: No identified masses or abnormal nodes. HARDWARE: Sternotomy wires and surgical clips. UPPER ABDOMEN: See separate report of the CT of the abdomen. THYROID AND OTHER SOFT TISSUES: No masses. No adenopathy. BONES: No acute or significant finding. 3D MIPS: Confirm above findings. OTHER: No other significant finding. IMPRESSION: 1. DUE TO TIMING OF THE CONTRAST BOLUS, THERE IS NO CONTRAST OPACIFICATION OF THE AORTA. THEREFORE C ANNOT ASSESS THE STATUS OF THE PREVIOUSLY SEEN AORTIC DISSECTION. IF FURTHER EVALUATION IS NECESSARY , THE STUDY WILL NEED TO BE REPEATED WITH ADDITIONAL CONTRAST INJECTION. 2. BILATERAL PLEURAL EFFUSIONS. SCATTERED ILL-DEFINED PARENCHYMAL OPACITIES IN BOTH LUNGS. 3. SATISFACTORY CONTRAST OPACIFICATION OF THE PULMONARY ARTERIES WITH NO EVIDENCE OF PULMONARY EMBOLI . COMMENT: Quality ID # 436: Final reports with documentation of one or more dose reduction techniques (e.g., Automated exposure control, adjustment of the mA and/or kV according to patient size, use of iterative reconstruction technique) TECHNICAL DOCUMENTATION: JOB ID: [id number] [employer]- All Rights Reserved Reading location - IP/workstation name: [email or web address]
--- NOTE | 2018-06-12 09:34 | RADIOLOGY REPORT (SQ) ---
EXAM DESCRIPTION: CTA ABDOMEN/PELVIS W WO COMPLETED DATE/TIME: 06/12/2018 9:08 am REASON FOR STUDY: dissection COMPARISON: 09/05/2017. TECHNIQUE: CT scan of the abdomen and pelvis performed with intravenous contrast using helical scann ing technique with dynamic intravenous contrast injection. Images reviewed with lung, soft tissue, an d bone windows. Reconstructed coronal and sagittal MPR images reviewed. All images stored on PACS. Advanced 3D imaging as volume rendering, MIPS, SSD performed? yes All CT scanners at this facility use dose modulation, iterative reconstruction, and/or weight based d osing when appropriate to reduce radiation dose to as low as reasonably achievable (ALARA). [facility]: Dose Right [facility]: CareDose [facility]: Dose Right [facility]: Teradose 4D [facility]: 4[employer]ox CONTRAST TYPE AND DOSE: 75 mL Omnipaque 350- low osmolar. RENAL FUNCTION: Not available. LIMITATIONS: Due to timing of the contrast bolus, there is no contrast opacification of the abdomina l aorta. FINDINGS: LOWER CHEST: See separate report of the CT of the chest. NON-CONTRASTED LIVER, SPLEEN, ADRENALS: Evaluation limited by lack of IV contrast. No identified sign ificant masses. PANCREAS: No masses. No peripancreatic inflammatory changes. GALLBLADDER: Gallstones. No inflammatory changes to suggest cholecystitis. RIGHT KIDNEY AND URETER: No suspicious masses. Assessment limited by lack of IV contrast. No signif icant calcifications. No hydronephrosis or hydroureter. LEFT KIDNEY AND URETER: No suspicious masses. Assessment limited by lack of IV contrast. No signifi cant calcifications. No hydronephrosis or hydroureter. AORTA AND RETROPERITONEUM: No aneurysm. No retroperitoneal masses or adenopathy. BOWEL AND PERITONEAL CAVITY: Scattered diverticuli in the colon. No obvious masses or inflammatory c hanges. No free fluid. APPENDIX: Not visualized. PELVIS, BLADDER, AND ABDOMINAL WALL:No abnormal masses. No free fluid. Bladder normal. BONES: No significant findings. OTHER: No other significant finding. IMPRESSION: 1. DUE TO TIMING OF THE CONTRAST BOLUS, THERE IS NO CONTRAST OPACIFICATION OF THE ABDOMINAL AORTA. T HEREFORE CANNOT ASSESS THE STATUS OF THE PREVIOUSLY SEEN AORTIC DISSECTION. IF FURTHER EVALUATION IS NECESSARY, THE STUDY WILL NEED TO BE REPEATED WITH ADDITIONAL CONTRAST ADMINISTRATION. 2. GALLSTONES. 3. COLONIC DIVERTICULOSIS. TECHNICAL DOCUMENTATION: JOB ID: [id number] Quality ID # 436: Final reports with documentation of one or more dose reduction techniques (e.g., Au tomated exposure control, adjustment of the mA and/or kV according to patient size, use of iterative reconstruction technique) 2010 [employer]- All Rights Reserved Reading location - IP/workstation name: [email or web address]
--- NOTE | 2018-06-12 09:35 | EKG REPORT ---
SEVERITY:- ABNORMAL ECG - JUNCTIONAL TACHYCARDIA LAD, CONSIDER LEFT ANTERIOR FASCICULAR BLOCK LEFT VENTRICULAR HYPERTROPHY PROLONGED QT INTERVAL : Confirmed by: Mikayla Burciaga MD 12-Jun-2018 09:34:35
--- NOTE | 2018-06-12 09:35 | EKG REPORT ---
SEVERITY:- ABNORMAL ECG - JUNCTIONAL TACHYCARDIA LAD, CONSIDER LEFT ANTERIOR FASCICULAR BLOCK LEFT VENTRICULAR HYPERTROPHY PROLONGED QT INTERVAL : Confirmed by: Mikayla Burciaga MD 12-Jun-2018 09:34:21
[2018-06-12] MEDS ORDERED: ASPIRIN 325 MG TABLET PO ONE (09:55)
--- NOTE | 2018-06-12 11:25 | RADIOLOGY REPORT (SQ) ---
EXAM DESCRIPTION: CTA CHEST COMPLETED DATE/TIME: 06/12/2018 11:04 am REASON FOR STUDY: dissection COMPARISON: 09/05/2017. TECHNIQUE: CT scan of the chest performed using helical scanning technique with dynamic intravenous contrast injection. Images reviewed with lung, soft tissue and bone windows. Reconstructed coronal and sagittal MPR images reviewed. Additional 3 dimensional post-processing performed to develop Maximal Intensity Projection images ([place] P). All images stored on PACS. All CT scanners at this facility use dose modulation, iterative reconstruction, and/or weight based d osing when appropriate to reduce radiation dose to as low as reasonably achievable (ALARA). [facility]: Dose Right [facility]: CareDose [facility]: Dose Right [facility]: Teradose 4D [facility]: [employer] CONTRAST TYPE AND DOSE: contrast/concentration: Isovue 350.00 mg/ml; Total Contrast Delivered: 80.0 ml; Total Saline Delivered: 75.0 ml Contrast bolus adequate for pulmonary arteries and aorta. RENAL FUNCTION: BUN 20 creatinine 1.06. RADIATION DOSE: . LIMITATIONS: None. FINDINGS: LUNGS AND PLEURA: Bilateral pleural effusions with basilar airspace disease. AORTA AND GREAT VESSELS: Again seen is dissection beginning at the origin of the right subclavian art alberto and extending through the aortic arch and descending thoracic aorta into the abdominal aorta. Th e major vessels are supplied by the true lumen. The major branches are patent to the extent included on the images. There is some contrast filling of the false lumen. Maximum diameter of the descendi ng thoracic aorta is 3.7 cm. HEART: No pericardial effusion. No significant coronary artery calcifications. PULMONARY ARTERIES: No emboli visualized in the main pulmonary arteries or the segmental branches. HILAR AND MEDIASTINAL STRUCTURES: No identified masses or abnormal nodes. HARDWARE: None in the chest. UPPER ABDOMEN: See separate report of the CT of the abdomen. THYROID AND OTHER SOFT TISSUES: No masses. No adenopathy. BONES: No acute or significant finding. 3D MIPS: Confirm above findings. OTHER: No other significant finding. IMPRESSION: 1. THORACIC AORTIC DISSECTION DESCRIBED. SIMILAR APPEARANCE TO THE PRIOR STUDY FROM 09/05/2017. 2. BILATERAL PLEURAL EFFUSIONS WITH BASILAR AIRSPACE DISEASE. COMMENT: Quality ID # 436: Final reports with documentation of one or more dose reduction techniques (e.g., Automated exposure control, adjustment of the mA and/or kV according to patient size, use of iterative reconstruction technique) TECHNICAL DOCUMENTATION: JOB ID: [id number] [employer]- All Rights Reserved Reading location - IP/workstation name: [email or web address]
--- NOTE | 2018-06-12 11:29 | RADIOLOGY REPORT (SQ) ---
EXAM DESCRIPTION: CTA ABDOMEN/PELVIS W WO COMPLETED DATE/TIME: 06/12/2018 11:04 am REASON FOR STUDY: dissection COMPARISON: 09/05/2017. TECHNIQUE: CT scan of the abdomen and pelvis performed with intravenous contrast using helical scann ing technique with dynamic intravenous contrast injection. Images reviewed with lung, soft tissue, an d bone windows. Reconstructed coronal and sagittal MPR images reviewed. All images stored on PACS. Advanced 3D imaging as volume rendering, MIPS, SSD performed? yes All CT scanners at this facility use dose modulation, iterative reconstruction, and/or weight based d osing when appropriate to reduce radiation dose to as low as reasonably achievable (ALARA). [facility]: Dose Right [facility]: CareDose [facility]: Dose Right [facility]: Teradose 4D [facility]: Happy Elements CONTRAST TYPE AND DOSE: 80 mL Omnipaque 350- low osmolar. RENAL FUNCTION: BUN 20 creatinine 1.06. LIMITATIONS: None. FINDINGS: AORTA AND VESSELS: Again seen is aortic dissection extending from the thoracic aorta throu gh the abdominal aorta to the left common iliac artery. Contrast is present in the true lumen and fa lse lumen. The mesenteric vessels, renal artery, and right common iliac artery are supplied by the t rue lumen. The major branches of the abdominal aorta are patent and filled with contrast. LUNG BASES: See separate report CT chest. LIVER: Normal size. No masses or dilated ducts. SPLEEN: Normal size. No focal lesions. PANCREAS: No masses. No significant calcifications. No adjacent inflammation or peripancreatic fluid collections. Pancreatic duct not dilated. GALLBLADDER: Gallstones. No inflammatory changes to suggest cholecystitis. ADRENAL GLANDS: No significant masses or asymmetry. RIGHT KIDNEY AND URETER: No mass, calculi or urinary tract obstruction. LEFT KIDNEY AND URETER: No mass, calculi or urinary tract obstruction. RETROPERITONEUM: No retroperitoneal adenopathy, hemorrhage or masses. BOWEL AND PERITONEAL CAVITY: No masses or inflammatory changes. Colonic diverticulosis. No free flu id or peritoneal masses. APPENDIX: Not visualized. ABDOMINAL WALL: No masses. No hernias. BONY STRUCTURES: No significant or acute findings. 3-D IMAGING: Confirms the above findings. OTHER: No other significant finding. IMPRESSION: 1. STABLE AORTIC DISSECTION DESCRIBED. SIMILAR APPEARANCE TO THE PREVIOUS STUDY FROM 09/05/2017. M AJOR VESSELS ARE PATENT WITH NO OCCLUSION OR SIGNIFICANT NARROWING. NO ANEURYSMAL DILATION AND NO EV IDENCE OF AORTIC LEAK. 2. OTHER FINDINGS ABOVE INCLUDING GALLSTONES AND COLONIC DIVERTICULOSIS. TECHNICAL DOCUMENTATION: JOB ID: [id number] Quality ID # [id number]: Final reports with documentation of one or more dose reduction techniques (e.g., Au tomated exposure control, adjustment of the mA and/or kV according to patient size, use of iterative reconstruction technique) 2010 [employer]- All Rights Reserved Reading location - IP/workstation name: [email or web address]
--- NOTE | 2018-06-12 12:49 | XCELERA REPORT ---
[address] [address] Transthoracic Echocardiogram Report Name: KING CHAVEZ SR Age: 63 yrs Gender: Male : 1955 Patient Status: Inpatient Patient Location: [place] [address]^A Study Date: 06/12/2018 09:09 AM Height: 64 in Weight: 196 lb BSA: 1.9 m2 Reason For Study: new heart failure Ordering Physician: DAR GRANADO Performed By: Macy Quintero Interpretation Summary The Ejection Fraction estimate is 40-45% Left ventricular systolic function is mild to moderately reduced. There is mild concentric left ventricular hypertrophy. The left ventricle is grossly normal size. Doppler measurements suggest pseudonormalized left ventricular relaxation, which is associated with grade II/IV or mild to moderate diastolic dysfunction There is mild to moderate global hypokinesis of the left ventricle. The right ventricular systolic function is normal. The left atrial size is normal. The right atrium is normal in size There is a trace to mild amount of mitral regurgitation There is no mitral valve stenosis. There is a mild amount of aortic regurgitation There is no aortic valve stenosis There is a trace or physiologic amount of tricuspid regurgitation Tricuspid regurgitation jet envelope not well defined to measure RV systolic pressure accurately. The aortic root is not well visualized. The inferior vena cava was not well visualized There is no pericardial effusion. MMode/2D Measurements & Calculations RVDd: 2.8 cm LVIDd: 5.6 cm FS: 18.9 % Ao root diam: 2.7 cm IVSd: 1.2 cm LVIDs: 4.6 cm EDV(Teich): 155.7 ml LVPWd: 1.1 cm ESV(Teich): 95.8 ml Ao root area: 5.6 cm2 LA dimension: 4.1 cm EF(Teich): 38.5 % Doppler Measurements & Calculations MV E max joelle: MV P1/2t max joelle: Ao V2 max: AI max joelle: 98.7 cm/sec 112.9 cm/sec 103.5 cm/sec 279.6 cm/sec MV A max joelle: MV P1/2t: 58.9 msec Ao max PG: AI max P.9 cm/sec MVA(P1/2t): 3.7 cm2 4.3 mmHg 31.3 mmHg MV E/A: 1.1 MV dec slope: AI dec slope: 83.7 cm/sec2 561.7 cm/sec2 AI P1/2t: MV dec time: 0.21 sec 978.8 msec LV V1 max PG: TV V2 max: PA V2 max: PI end-d joelle: 2.7 mmHg 93.7 cm/sec 111.3 cm/sec 105.9 cm/sec LV V1 max: TV max P.6 mmHg PA max P.9 cm/sec 5.0 mmHg AV P1/2t-pr_phl: MV P1/2t-pr_phl: 1013 msec 58.9 msec Left Ventricle The left ventricle is grossly normal size. There is mild concentric left ventricular hypertrophy. Left ventricular systolic function is mild to moderately reduced. The Ejection Fraction estimate is 40-45%. Doppler measurements suggest pseudonormalized left ventricular relaxation, which is associated with grade II/IV or mild to moderate diastolic dysfunction. There is mild to moderate global hypokinesis of the left ventricle. Right Ventricle The right ventricle is grossly normal size. There is normal right ventricular wall thickness. The right ventricular systolic function is normal. Atria The right atrium is normal in size. The left atrial size is normal. Interarterial septum not well visualized and not well dopplered. Cannot comment on ASD/PFO presence. Mitral Valve The mitral valve leaflets are sclerotic, but show no functional abnormalities. There is no mitral valve stenosis. There is a trace to mild amount of mitral regurgitation. Aortic Valve The aortic valve is not well visualized secondary to technical limitations. There is no aortic valve stenosis. There is a mild amount of aortic regurgitation. Tricuspid Valve The tricuspid valve is not well visualized secondary to technical limitations. There is no tricuspid stenosis. There is a trace or physiologic amount of tricuspid regurgitation. Tricuspid regurgitation jet envelope not well defined to measure RV systolic pressure accurately. Pulmonic Valve The pulmonic valve is not well visualized. Great Vessels The aortic root is not well visualized. The inferior vena cava was not well visualized. Effusions There is no pericardial effusion. : DAR GRANADO > Belinda Hua
[2018-06-12] MEDS ORDERED: FLECAINIDE ACETATE 100 MG TABLET PO SCH (13:00)
--- NOTE | 2018-06-12 13:49 | PDOC CONSULTATION ---
Consultation Consult Date: 06/12/18 Attending physician:: JOON GRANADO Consult reason:: SVT, severe hypertension History of Present Illness Admission Date/PCP: June 12, 2018 Patient complains of: Chest pain and shortness of breath History of Present Illness: KING CHAVEZ SR is a 63 year old male presents to the emergency department for chief complaint of shortness of breath. Patient had sudden onset of shortness of breath when waking up this morning. HPI is limited because he is on CPAP and having a difficult time speaking. His states yesterday he was fine when he went to bed. This morning shortly after waking up he had sudden onset of symptoms. EMS gave him Vasotec and placed him on CPAP which she states is improving his symptoms. EMS reported he was very diaphoretic and 60% on room air when they found him. He denies history of any lung disease. He does have history of aortic dissection and stroke. He is anticoagulated on aspirin and Plavix. Patient initially denied chest pain but then stated he had some mild pain and pointed to his sternum for location. Further details not able to be obtained because of his acuity. This history obtained by the ER physician was reviewed. I did talk to patient' s and patient's daughter. It seems patient has a history of aortic dissection in 2002 at which time he had open heart surgery and had a graft placed. However they were told that there was still a tear present and there is some communication between the true lumen and the false lumen being present. Today, patient went to the bathroom then suddenly had sudden onset shortness of breath and subsequently also had some chest discomfort. Patient was noted to be very hypoxemic. CT scan suggest bilateral pleural effusion and infiltrate indicative of pulmonary edema. Patient was also noted to have narrow complex QRS without any significant ST segment changes and discernible P waves. It is felt that patient may have some kind of AV sapna reentrant tachycardia. Patient was initially treated with adenosine but did not respond but subsequently caught Cardizem 20 mg or 25 mg IV and started on a Cardizem drip which nicely got his heart rhythm down. Patient apparently also did get some labetalol. Currently he is maintaining good heart rate and blood pressure. Is still on CPAP therapy and unable to get a good history. Is still having some mild discomfort in the chest but overall significantly improved. Patient had 2 CTAs which were both negative for pulmonary embolism but did show aortic dissection which the radiologist reported to be unchanged from before. However this is a long dissection starting from the anterior aortic arch going all the way to the right iliac vessel. On comparing the current CT angiogram with previous CT angiogram, there did not seem to be any significant change except may be there is some progression in the descending aorta especially involving the left renal artery and possibly also the right renal artery. This is however on my review. The ER physician has been in touch with cardiothoracic surgeon at [facility] for trying to review the CTA obtained here. My feeling is that, it probably best to transfer patient to tertiary care especially since patient may end up needing renal angiogram and a more specific EKG gated CT angiogram with thinner slices. This is not available in this institution. This I felt is probably indicated in view of patient presentation with sudden onset severe hypertension and pulmonary edema. Past Medical History Cardiac Medical History: Reports: Hypertension Cardiac History Note: Aortic dissection with repair in 2002 or so at a hospital in [place]. Endocrine Medical History: Reports: Diabetes Mellitus Type 2 Past Surgical History Past Surgical History: Reports: Other - Aortic Arch dissection repair Social History Information Source: Patient, Relative Smoking Status: Never Smoker - Advance Directive Resuscitation Status: Full Code Family History Family History: Reviewed & Not Pertinent, Hypertension Parental Family History Reviewed: Yes Children Family History Reviewed: Yes Sibling(s) Family History Reviewed.: Yes Medication/Allergy Home Medications: Allopurinol [Zyloprim 100 mg Tablet] 100 mg PO BID 06/12/18 Atorvastatin Calcium [Lipitor 80 mg Tablet] 80 mg PO QHS 06/12/18 Clopidogrel Bisulfate [Plavix 75 mg Tablet] 75 mg PO DAILY 06/12/18 Diclofenac Sodium [Voltaren] 2 gm TP QID 06/12/18 Labetalol HCl 150 mg PO DAILY 06/12/18 Metformin HCl 500 mg PO DAILY 06/12/18 Acetaminophen [Tylenol 325 mg Tablet] 650 mg PO Q6HP PRN 06/13/18 Allergies/Adverse Reactions: nitroglycerin Allergy (Verified 06/12/18 10:10) Review of Systems ROS unobtainable: Other Review of Systems: Patient noted to be acutely ill on BiPAP therapy. This therefore could not be obtained. Physical Exam Vital Signs: Temp Pulse Resp BP Pulse Ox 97.1 F 147 H 23 H 143/74 H 97 06/12/18 10:02 06/12/18 08:05 06/12/18 12:45 06/12/18 12:45 06/12/18 12:45 Intake & Output 06/11/18 06/12/18 06/13/18 06:59 06:59 06:59 Weight 89.2 kg Exam: GENERAL: well-nourished and in mild respiratory distress. Alert and oriented x3 HEAD: Atraumatic, normocephalic. EYES: Pupils equal round and reactive to light, extraocular movements intact, sclera anicteric, conjunctiva are normal. ENT: TMs normal, nares patent, oropharynx clear without exudates. Moist mucous membranes. No oral ulcerations or bleeding gums noted NECK: supple without lymphadenopathy. Trachea is central. No cervical or axillary lymphadenopathy noted. Carotids are 2+, JVD WNL LUNGS: Respiration seems nonlabored, no significant accessory muscle action noted. Bibasilar fine crackles and few scattered wheezes rales or rhonchi noted. No significant dullness noted on percussion. CHEST: Palpation of the chest wall shows no significant chest wall tenderness. HEART: [place] [employer], No PSH, 1/6 DONNELL aortic area, 1/6 carlos systolic murmur mitral area, no rubs, no gallops. ABDOMEN: Soft, no significant tenderness appreciated, normoactive bowel sounds. No guarding, no rebound. No rigidity noted . No masses appreciated. EXTREMITIES: Pedal pulses are 1-2+, no calf tenderness noted. No clubbing or cyanosis. negative pedal edema noted NEUROLOGICAL: Focused neurological exam showed no significant neurologic deficit. Normal speech, no focal weakness appreciated. PSYCH: Normal mood, normal affect. Judgment and insight within normal limits. SKIN: No significant ecchymosis, skin is noted to be warm. MUSCULOSKELETAL EXAM: No significant acute joint swelling noted. Results Laboratory Results: 06/12/18 08:07 06/12/18 08:07 06/12/18 06/12/18 06/12/18 08:07 08:07 08:07 WBC 5.7 RBC 5.14 Hgb 15.4 Hct 45.4 MCV 88 MCH 30.0 MCHC 34.0 RDW 14.2 H Plt Count 162 Seg Neutrophils % 73.7 Lymphocytes % 17.1 Monocytes % 6.6 Eosinophils % 1.7 Basophils % 0.9 Absolute Neutrophils 4.2 Absolute Lymphocytes 1.0 Absolute Monocytes 0.4 Absolute Eosinophils 0.1 Absolute Basophils 0.0 Sodium 140.8 Potassium 4.2 Chloride 107 Carbon Dioxide 23 Anion Gap 11 BUN 20 Creatinine 1.06 Est GFR ( Amer) > 60 Est GFR (Non-Af Amer) > 60 Glucose 261 H Lactic Acid 1.7 Calcium 8.8 Total Bilirubin 0.6 AST 18 ALT 25 Alkaline Phosphatase 54 Total Protein 7.0 Albumin 4.1 06/12/18 08:07 Troponin I 0.020 EKG Comments: Supraventricular tachycardia, no acute ST-T wave changes noted. LVH noted. Impressions: Chest/Abdomen CTA 06/12/18 10:27 IMPRESSION: 1. THORACIC AORTIC DISSECTION DESCRIBED. SIMILAR APPEARANCE TO THE PRIOR STUDY FROM 09/05/2017. 2. BILATERAL PLEURAL EFFUSIONS WITH BASILAR AIRSPACE DISEASE. Abdomen/Pelvis CTA 06/12/18 10:28 IMPRESSION: 1. STABLE AORTIC DISSECTION DESCRIBED. SIMILAR APPEARANCE TO THE PREVIOUS STUDY FROM 09/05/2017. MAJOR VESSELS ARE PATENT WITH NO OCCLUSION OR SIGNIFICANT NARROWING. NO ANEURYSMAL DILATION AND NO EVIDENCE OF AORTIC LEAK. 2. OTHER FINDINGS ABOVE INCLUDING GALLSTONES AND COLONIC DIVERTICULOSIS. Assessment & Plan - Diagnosis (1) Chest pain Qualifiers: Chest pain type: other chest pain Qualified Code(s): R07.89 - Other chest pain; R07.8 - Other chest pain Is this a current diagnosis for this admission?: Yes (2) Heart failure Qualifiers: Heart failure type: unspecified Heart failure chronicity: acute Qualified Code(s): I50.9 - Heart failure, unspecified Is this a current diagnosis for this admission?: Yes (3) SVT (supraventricular tachycardia) Is this a current diagnosis for this admission?: Yes (4) Chronic dissection of thoracic aorta Is this a current diagnosis for this admission?: Yes (5) Hypertensive emergency Is this a current diagnosis for this admission?: Yes (6) Dyslipidemia Is this a current diagnosis for this admission?: Yes (7) Acute hypoxemic respiratory failure Is this a current diagnosis for this admission?: Yes - Notes Notes: Chest pain: Possibly related to severe hypertension, and supply demand mismatch from SVT, cannot rule out contribution of dissection, cannot rule out acute coronary syndrome: EKGs has been unremarkable. Initial cardiac enzymes negative. Will repeat another cardiac enzyme. Continue aspirin and Plavix therapy. Await opinion of cardiothoracic's surgeon from [place] regarding how to manage aortic dissection which is felt to be chronic. Possible distal extension cannot be ruled out. Heart failure: Patient noted to have acute pulmonary edema. Recommend IV diuretics, good control of blood pressure. LVEF is noted to be depressed. Therefore patient has combined systolic and diastolic dysfunction. Recommend carvedilol, YVETTE inhibitor/ARB/entresto therapy. SVT: Patient responded to Cardizem which probably could be continued. Could gradually be switched over to beta-carla. Hypertensive emergency: Exact etiology not clear but suspect renal artery stenosis secondary to dissection progression, this possibility may need to be ruled out. In the meantime use antihypertensive agents. Blood pressure seems to have stabilized. Dyslipidemia: Continue with high potency statin therapy. Acute hypoxemic respiratory failure: Most likely related to pulmonary edema, pulmonary embolism ruled out. Patient may have underlying COPD. We are awaiting disposition at this point. Awaiting information from cardiothoracic surgery at [facility]. Patient also has been accepted by guest services representative at [facility] currently waiting a bed. - Time Time Spent: 50 to 70 Minutes - CODE STATUS was discussed, patient remains full code. Surrogate decision-maker patient's . Multiple medical problems were addressed. More than 50% of the time spent coordinating care, discussing management plans with involved caregivers. Management plans discussed with involved personnels. Medical decision making was of moderate to high complexity , patient's has multiple comorbidities. Medications reviewed and adjusted accordingly: Yes
[2018-06-12] MEDS ORDERED: FUROSEMIDE INJ/PF 40 MG/4 ML SDV IV ONE (14:51)
[2018-06-12] MEDS ORDERED: ACETAMINOPHEN 325 MG TABLET PO ONE (17:39)
--- NOTE | 2018-06-12 20:44 | ER Document Report ---
Doctor's Note Notes: 06/12/18 20:42 The patient's vital signs remained stable. He was tried on nasal cannula at one point but his oxygen saturations dropped, so he was placed back on his BiPAP. I am told he will not likely get a bed at [facility]. Dr. Hua came by to see the patient and requested that we increase his labetalol dosing to 200 mg twice daily. He also requested that he be started on his atorvastatin and allopurinol, will hold Plavix, diclofenac, and metformin. We will also get a CBC, Chem-12, and troponin. 06/13/18 00:08 The repeat troponin went up to 0.091, the CBC was unchanged, the Chem-12 showed an increase in the serum CO2 and a decrease in the blood sugar but nothing of significance. Patient's vital signs have remained stable and currently has a pulse 76, pulse ox 96% on the BiPAP, and a blood pressure 138/66. Patient care is transferred to at this time.
[2018-06-12 20:59] LABS: ABSOLUTE BASOPHILS # (AUTO) 0.1 10^3/uL (0.0-0.2); ABSOLUTE EOSINOPHILS # (AUTO) 0.1 10^3/uL (0.0-0.6); ABSOLUTE LYMPHOCYTES (AUTO) 1.1 10^3/uL (0.5-4.7); ABSOLUTE MONOCYTES (AUTO) 0.6 10^3/uL (0.1-1.4); ABSOLUTE NEUT (AUTO) 5.6 10^3/uL (1.7-8.2); BASOPHILS % (AUTO) 0.8 % (0-2); EOSINOPHILS % (AUTO) 0.9 % (0-6); HEMATOCRIT 45.5 % (37.9-51.0); HEMOGLOBIN 15.6 g/dL (13.5-17.0); LYMPHOCYTES % (AUTO) 14.8 % (13-45); MEAN CORPUSCULAR HGB CONC 34.2 g/dL (32.0-36.0); MEAN CORPUSCULAR VOLUME 88 fl (80-97); MONOCYTES % (AUTO) 7.6 % (3-13); PLATELET COUNT 177 10^3/uL (150-450); RED BLOOD COUNT 5.18 10^6/uL (4.35-5.55); RED CELL DISTRIBUTION WIDTH 14.2 % (11.5-14.0); SEGMENTED NEUTROPHILS % (AUTO) 75.9 % (42-78); TOTAL CELLS COUNTED % (AUTO) 100 %; WHITE BLOOD COUNT 7.4 10^3/uL (4.0-10.5)
[2018-06-12 21:13] LABS: ALANINE AMINOTRANSFERASE 26 U/L (21-72); ALBUMIN 4.1 g/dL (3.5-5.0); ALKALINE PHOSPHATASE 47 U/L (38-126); ANION GAP 8 (5-19); ASPARTATE AMINO TRANSFERASE 18 U/L (17-59); BILIRUBIN,DIRECT 0.3 mg/dL (0.0-0.4); BLOOD UREA NITROGEN 18 mg/dL (7-20); CALCIUM 9.5 mg/dL (8.4-10.2); CARBON DIOXIDE 30 mmol/L (22-30); CHLORIDE 102 mmol/L (98-107); GLUCOSE 115 mg/dL (75-110); TOTAL PROTEIN 7.1 g/dL (6.3-8.2)
[2018-06-12] MEDS: LABETALOL HCL 200 MG TABLET PO SCH (22:43)
[2018-06-12] MEDS: ATORVASTATIN CALCIUM 80 MG TABLET PO SCH (22:43)
[2018-06-12] MEDS ORDERED: ALLOPURINOL 300 MG TABLET ONE (22:50)
[2018-06-12] MEDS: ALLOPURINOL 100 MG TABLET PO SCH (23:30)
--- NOTE | 2018-06-13 09:46 | ER Document Report ---
Doctor's Note Notes: 06/13/18 09:44 Vitals reviewed. Nursing and provider notes reviewed. Patient seen and evaluated. Lung sounds are significantly improved from yesterday he has only minimal basilar rhonchi. He is still requiring 4 L nasal cannula oxygen and has mild tachypnea but is in no respiratory distress. Lab work from yesterday was reviewed. I will reorder CBC, CMP and troponin to continue trending lab values. Patient had been started on oral medications for rate control and tapered off of Cardizem infusion yesterday. His heart rate currently is 83 and normal sinus. [facility] states they will likelly not have any beds available today. I discussed patient's care with Dr. Hua who agrees that with his improvement in condition he is acceptable to be admitted at this facility. I discussed patient's care with Dr. Ba who accepted admission. Patient is in agreement with this plan.
[2018-06-13] MEDS: LABETALOL HCL 200 MG TABLET PO SCH ×2 (09:59→17:29)
[2018-06-13] MEDS: ALLOPURINOL 100 MG TABLET PO SCH ×2 (10:00→17:29)
[2018-06-13 10:11] LABS: ABSOLUTE EOSINOPHILS # (AUTO) 0.1 10^3/uL (0.0-0.6); ABSOLUTE LYMPHOCYTES (AUTO) 0.6 10^3/uL (0.5-4.7); ABSOLUTE MONOCYTES (AUTO) 0.5 10^3/uL (0.1-1.4); ABSOLUTE NEUT (AUTO) 5.3 10^3/uL (1.7-8.2); BASOPHILS % (AUTO) 0.7 % (0-2); EOSINOPHILS % (AUTO) 0.8 % (0-6); HEMATOCRIT 45.2 % (37.9-51.0); LYMPHOCYTES % (AUTO) 9.6 % (13-45); MEAN CORPUSCULAR HEMOGLOBIN 29.6 pg (27.0-33.4); MEAN CORPUSCULAR HGB CONC 33.2 g/dL (32.0-36.0); MEAN CORPUSCULAR VOLUME 89 fl (80-97); MONOCYTES % (AUTO) 8.2 % (3-13); PLATELET COUNT 168 10^3/uL (150-450); RED BLOOD COUNT 5.07 10^6/uL (4.35-5.55); RED CELL DISTRIBUTION WIDTH 14.5 % (11.5-14.0); SEGMENTED NEUTROPHILS % (AUTO) 80.7 % (42-78); TOTAL CELLS COUNTED % (AUTO) 100 %; WHITE BLOOD COUNT 6.5 10^3/uL (4.0-10.5)
[2018-06-13 10:40] LABS: BLOOD UREA NITROGEN 21 mg/dL (7-20); CALCIUM 9.3 mg/dL (8.4-10.2); GLUCOSE 247 mg/dL (75-110)
[2018-06-13 10:41] LABS: ALANINE AMINOTRANSFERASE 18 U/L (21-72); ALBUMIN 3.8 g/dL (3.5-5.0); ALKALINE PHOSPHATASE 43 U/L (38-126); ANION GAP 7 (5-19); ASPARTATE AMINO TRANSFERASE 20 U/L (17-59); BILIRUBIN,DIRECT 0.4 mg/dL (0.0-0.4); CARBON DIOXIDE 30 mmol/L (22-30); CHLORIDE 102 mmol/L (98-107); POTASSIUM 4.5 mmol/L (3.6-5.0); SODIUM 138.8 mmol/L (137-145); TOTAL PROTEIN 6.8 g/dL (6.3-8.2)
[2018-06-13] MEDS ORDERED: GLUCAGON,HUMAN RECOMB 1 MG INJ IM PRN (11:00)
[2018-06-13] MEDS ORDERED: INSULIN LISPRO 100 UNIT/ML 3 ML VIAL SUBCUT PRN (11:00)
[2018-06-13] MEDS ORDERED: DEXTROSE 40% GEL 15 GM TUBE PO PRN ×2 (11:00)
[2018-06-13] MEDS ORDERED: DEXTROSE 50%-WATER 25 GM/50 ML DISP.SYRIN IV PRN ×2 (11:00)
[2018-06-13] MEDS ORDERED: DIGOXIN 0.25 MG TABLET PO ONE ×2 (11:30→14:30)
[2018-06-13] MEDS: CLOPIDOGREL BISULFATE 75 MG TABLET PO SCH (11:43)
[2018-06-13] MEDS: FUROSEMIDE 40 MG TABLET PO SCH (11:44)
--- NOTE | 2018-06-13 15:40 | PDOC H&P ---
History of Present Illness Admission Date/PCP: 06/13/18 10:13 Patient complains of: Difficulty breathing, chest tightness History of Present Illness: KING CHAVEZ SR is a 63 year old man who has a history of an extensive aortic dissection, diagnosed and repaired in 2002 though with persistent leak. Patient has been seen in this hospital several times since moving to this area from [place]. He had a CT scan in August and then 1 again during this ER stay which showed that the section is stable. He came into the ER via EMS for sudden onset tightness in the chest and difficulty breathing after having a bowel movement. In the ER he was found to be extremely hypertensive and tachycardic with heart rate over 200. He was found to be in SVT. He did not respond to adenosine. Ultimately he was placed on diltiazem drip and labetalol and his heart rate and blood pressure improved. His symptoms improved. He was followed by Dr. Hua in the ER. Dr. Hua evaluated the CT of the dissection and there was this possibility that the left renal artery had new area of dissection and therefore we asked that the patient be transferred to another hospital, higher level of care, thoracic surgery. The ER attempted to transfer the patient but there is no vent bed available at [facility]. He stayed here overnight. He has improved significantly and we have admitted him to the hospital for blood pressure and heart rate management along with new onset CHF possibly acute and rate related, slight troponin elevation. Past Medical History Cardiac Medical History: Reports: Hypertension Denies: Atrial Fibrillation, Myocardial Infarction Pulmonary Medical History: Reports: Intubation Denies: Chronic Obstructive Pulmonary Disease (COPD) EENT Medical History: Denies: None Neurological Medical History: Reports: Ischemic CVA Endocrine Medical History: Reports: Diabetes Mellitus Type 2 Denies: Obesity Renal/ Medical History: Denies: Chronic Kidney Disease Malignancy Medical History: Reports: None GI Medical History: Denies: Peptic Ulcer Disease Musculoskeltal Medical History: Reports: Gout Skin Medical History: Denies: Eczema, Psoriasis Psychiatric Medical History: Denies: Alcohol Dependency, Depression, General Anxiety Disorder, Substance Abuse, Tobacco Dependency Traumatic Medical History: Reports: None Hematology: Denies: Anemia, Bleeding Tendencies Infectious Medical History: Denies: None Past Surgical History Past Surgical History: Reports: Orthopedic Surgery - Back surgery, type unknown , Vascular Surgery, Other - Aortic Arch dissection repair. Stomach surgery as child. Social History Information Source: Patient, Relative Lives with: Family Smoking Status: Former Smoker Cigarettes Packs Per Day: 0 Last Time Smoked: 1979 Frequency of Alcohol Use: Rare Amount of Alcoholic Beverages Per Day: 2 alcoholic drinks a year Hx Recreational Drug Use: No Drugs: None Hx Prescription Drug Abuse: No Past Social History Note: Patient is from the [facility]. He and his live here now near their children. Not have a primary care doctor. He states that he cannot afford his medications. Recently had a stroke and was hospitalized at a local tertiary care center but has not been on any of his medications including his Plavix as he has not been able to afford them. 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 He has done many things throughout his life and is currently not working secondary to medical debility. - Advance Directive Resuscitation Status: Full Code Surrogate healthcare decision maker:: His is his healthcare surrogate. We discussed and filled out a most form today. Family History Family History: DM, Hypertension Parental Family History Reviewed: Yes - Father with complications related to coronary disease Children Family History Reviewed: Yes - 3 healthy children Sibling(s) Family History Reviewed.: Yes - Several brothers with complications related to early coronary disease Medication/Allergy Home Medications: Allopurinol [Zyloprim 100 mg Tablet] 100 mg PO BID 06/12/18 Atorvastatin Calcium [Lipitor 80 mg Tablet] 80 mg PO QHS 06/12/18 Clopidogrel Bisulfate [Plavix 75 mg Tablet] 75 mg PO DAILY 06/12/18 Diclofenac Sodium [Voltaren] 2 gm TP QID 06/12/18 Labetalol HCl 150 mg PO DAILY 06/12/18 Metformin HCl 500 mg PO DAILY 06/12/18 Acetaminophen [Tylenol 325 mg Tablet] 650 mg PO Q6HP PRN 06/13/18 Allergies/Adverse Reactions: nitroglycerin Allergy (Verified 06/12/18 10:10) Review of Systems Constitutional: PRESENT: headache(s). ABSENT: chills, fever(s) Eyes: ABSENT: visual disturbances Ears: ABSENT: hearing changes Nose, Mouth, and Throat: ABSENT: sore throat Cardiovascular: PRESENT: chest pain, orthropnea. ABSENT: edema Respiratory: ABSENT: cough, hemoptysis, sputum Gastrointestinal: ABSENT: abdominal pain, constipation, heartburn, nausea, vomiting Genitourinary: ABSENT: dysuria, hematuria Musculoskeletal: ABSENT: deformity, muscle weakness Integumentary: ABSENT: diaphoresis, wounds Neurological: ABSENT: confusion, convulsions, dizziness, frequent falls, numbness, tingling Psychiatric: ABSENT: anxiety, depression Endocrine: ABSENT: cold intolerance, menstrual abnormalities, polyphagia, polyuria Hematologic/Lymphatic: ABSENT: easy bleeding, easy bruising Physical Exam Vital Signs: Temp Pulse Resp BP Pulse Ox 97.8 F 93 18 162/87 H 98 06/13/18 10:04 06/13/18 14:00 06/13/18 10:30 06/13/18 10:30 06/13/18 11:39 General appearance: PRESENT: no acute distress, cooperative, well-developed, well-nourished Head exam: PRESENT: atraumatic, normocephalic Eye exam: PRESENT: EOMI. ABSENT: conjunctival injection, scleral icterus Ear exam: PRESENT: normal external ear exam Mouth exam: PRESENT: moist, tongue midline Neck exam: ABSENT: lymphadenopathy, tracheostomy Respiratory exam: PRESENT: decreased breath sounds, rales, unlabored. ABSENT: rhonchi, wheezes Cardiovascular exam: PRESENT: RRR, systolic murmur GI/Abdominal exam: PRESENT: normal bowel sounds, soft. ABSENT: distended, guarding, tenderness Rectal exam: PRESENT: deferred Gentrourinary exam: ABSENT: indwelling catheter Extremities exam: ABSENT: pedal edema Musculoskeletal exam: PRESENT: normal inspection. ABSENT: deformity Neurological exam: PRESENT: alert, awake, oriented to person, oriented to place , oriented to situation, CN II-XII grossly intact, aphasic - Intermittent, since his recent stroke Psychiatric exam: PRESENT: appropriate affect. ABSENT: anxious Skin exam: PRESENT: dry, intact, warm Results Impressions: Chest/Abdomen CTA 06/12/18 10:27 IMPRESSION: 1. THORACIC AORTIC DISSECTION DESCRIBED. SIMILAR APPEARANCE TO THE PRIOR STUDY FROM 09/05/2017. 2. BILATERAL PLEURAL EFFUSIONS WITH BASILAR AIRSPACE DISEASE. Abdomen/Pelvis CTA 06/12/18 10:28 IMPRESSION: 1. STABLE AORTIC DISSECTION DESCRIBED. SIMILAR APPEARANCE TO THE PREVIOUS STUDY FROM 09/05/2017. MAJOR VESSELS ARE PATENT WITH NO OCCLUSION OR SIGNIFICANT NARROWING. NO ANEURYSMAL DILATION AND NO EVIDENCE OF AORTIC LEAK. 2. OTHER FINDINGS ABOVE INCLUDING GALLSTONES AND COLONIC DIVERTICULOSIS. Assessment & Plan - Diagnosis (1) SVT (supraventricular tachycardia) Is this a current diagnosis for this admission?: Yes Plan: This was the diagnosis in the ER. Patient did not respond to adenosine. Heart rate was ultimately controlled with labetalol. Now he is on labetalol 2 mg p.o. twice daily. We will up titrate as indicated for uncontrolled heart rate. Dr. Hua is consulting. Etiology not clear. (2) Hypertensive emergency Is this a current diagnosis for this admission?: Yes Plan: Patient's blood pressure is now controlled on labetalol 200 mg p.o. twice daily. Drip and that has been discontinued. We will monitor blood pressure and if uncontrolled will consider adding an YVETTE or an arb. (3) Heart failure Qualifiers: Heart failure type: unspecified Heart failure chronicity: acute Qualified Code(s): I50.9 - Heart failure, unspecified Is this a current diagnosis for this admission?: Yes Plan: Possibly rate related. Echocardiogram pending. Patient has been started on digoxin 0.25 mg x1 today and then 0.125 mg daily starting tomorrow. Will continue labetalol. Dr. Hua is consulting. He will need close follow-up. Secondary to pulmonary edema he is on Lasix 40 mg p.o. daily. His respiratory status is much improved. (4) Chest pain Qualifiers: Chest pain type: other chest pain Qualified Code(s): R07.89 - Other chest pain; R07.8 - Other chest pain Is this a current diagnosis for this admission?: Yes Plan: Secondary to SVT, uncontrolled hypertension, probably underlying coronary disease. Troponin trended up slightly and is now trending down. He will need cardiology follow-up, cardiology consulting here. (5) Ischemic cerebrovascular accident (CVA) Is this a current diagnosis for this admission?: Yes Plan: Patient has had 2 strokes in the past. He is on Plavix and that we will continue. He has mild a aphasia. He states he was in speech therapy until recently when he could no longer get there because his car broke down. He could probably use continued speech therapy but is nervous that he will not be able to afford it. We will work with case management to see if there is anything we can do to help in this regard. Strength is intact. (6) Gout Is this a current diagnosis for this admission?: Yes Plan: Stable, continue his allopurinol (7) Chronic dissection of thoracic aorta Is this a current diagnosis for this admission?: Yes Plan: He has a significant aortic dissection. Radiologist at this hospital read it as unchanged from August a month though our CT scanner per Dr. Hua, does not have appropriate slice with to evaluate this extensive lesion appropriately. Please see Dr. Hua's notes. Patient and his state that his vascular surgeon in [place] told him that he is "a ticking time bomb". Currently he is hemodynamically stable without strong evidence of change in the dissection. (8) Acute hypoxemic respiratory failure Is this a current diagnosis for this admission?: Yes Plan: Secondary to pulmonary edema and heart failure. We will continue with Lasix 40 mg p.o. daily. We will continue with oxygen and titrate down as we can. He is still on 2-4 L of nasal cannula oxygen to sat in the 90s.
--- NOTE | 2018-06-13 19:13 | PDOC PROGRESS REPORT ---
Subjective Progress Note for:: 06/13/18 Subjective:: Patient yesterday had complained of some in between shoulder blade to chest discomfort but that is resolved now. Patient just could not find a bed at [facility]. He was waiting to be transferred there. Patient was noted to be more stable to be admitted here therefore I was asked to follow patient as he is quite complicated. Patient seems to be doing better with gradual improvement. Pt is denying any chest arm or neck discomfort. Patient denying any PND, orthopnea. Patient denied any sustained palpitations, dizziness, syncope, near syncope. Patient denying any fever chills. Patient denying any other significant discomfort. Patient is maintaining sinus rhythm. Review of systems: Rest review of systems negative. Medications: Medications have been reviewed. Reason For Visit: SVT Physical Exam Vital Signs: Temp Pulse Resp BP Pulse Ox 98.3 F 80 21 H 154/75 H 98 06/13/18 16:08 06/13/18 16:08 06/13/18 16:08 06/13/18 16:08 06/13/18 16:27 Intake & Output 06/12/18 06/13/18 06/14/18 06:59 06:59 06:59 Intake Total 120 Output Total 390 Balance -270 Exam: GENERAL: well-nourished and in no acute distress. Alert and oriented x3 HEAD: Atraumatic, normocephalic. EYES: Pupils equal round and reactive to light, extraocular movements intact, sclera anicteric, conjunctiva are normal. ENT: TMs normal, nares patent, oropharynx clear without exudates. Moist mucous membranes. No oral ulcerations or bleeding gums noted NECK: supple without lymphadenopathy. Trachea is central. No cervical or axillary lymphadenopathy noted. Carotids are 2+, JVD WNL LUNGS: Respiration seems nonlabored, no significant accessory muscle action noted. Breath sounds clear to auscultation bilaterally and equal noted. No wheezes rales or rhonchi noted. No significant dullness noted on percussion. CHEST: Palpation of the chest wall shows no significant chest wall tenderness. HEART: [place] RN ORTHO, No PSH, 1/6 DONNELL aortic area, 1/6 carlos systolic murmur mitral area, no rubs, no gallops. ABDOMEN: Soft, no significant tenderness appreciated, normoactive bowel sounds. No guarding, no rebound. No rigidity noted . No masses appreciated. EXTREMITIES: Pedal pulses are 1-2+, no calf tenderness noted. No clubbing or cyanosis. negative pedal edema noted NEUROLOGICAL: Focused neurological exam showed no significant neurologic deficit. Normal speech, no focal weakness appreciated. PSYCH: Normal mood, normal affect. Judgment and insight within normal limits. SKIN: No significant ecchymosis, skin is noted to be warm. MUSCULOSKELETAL EXAM: No significant acute joint swelling noted. Results Impressions: Chest/Abdomen CTA 06/12/18 10:27 IMPRESSION: 1. THORACIC AORTIC DISSECTION DESCRIBED. SIMILAR APPEARANCE TO THE PRIOR STUDY FROM 09/05/2017. 2. BILATERAL PLEURAL EFFUSIONS WITH BASILAR AIRSPACE DISEASE. Abdomen/Pelvis CTA 06/12/18 10:28 IMPRESSION: 1. STABLE AORTIC DISSECTION DESCRIBED. SIMILAR APPEARANCE TO THE PREVIOUS STUDY FROM 09/05/2017. MAJOR VESSELS ARE PATENT WITH NO OCCLUSION OR SIGNIFICANT NARROWING. NO ANEURYSMAL DILATION AND NO EVIDENCE OF AORTIC LEAK. 2. OTHER FINDINGS ABOVE INCLUDING GALLSTONES AND COLONIC DIVERTICULOSIS. Assessment & Plan - Diagnosis (1) Chest pain Qualifiers: Chest pain type: other chest pain Qualified Code(s): R07.89 - Other chest pain; R07.8 - Other chest pain Is this a current diagnosis for this admission?: Yes (2) Heart failure Qualifiers: Heart failure type: unspecified Heart failure chronicity: acute Qualified Code(s): I50.9 - Heart failure, unspecified Is this a current diagnosis for this admission?: Yes (3) SVT (supraventricular tachycardia) Is this a current diagnosis for this admission?: Yes (4) Chronic dissection of thoracic aorta Is this a current diagnosis for this admission?: Yes (5) Hypertensive emergency Is this a current diagnosis for this admission?: Yes (6) Dyslipidemia Is this a current diagnosis for this admission?: Yes (7) Elevated troponin I level Is this a current diagnosis for this admission?: Yes (8) Acute hypoxemic respiratory failure Is this a current diagnosis for this admission?: Yes - Notes Notes: Troponin I elevation: This amount is most likely related to hypoxemic acute respiratory failure and severe hypertension. So far EKGs has been unremarkable. Chest pain: Now resolved. EKGs has been unremarkable. Troponins are in the high indeterminate range. Continue Plavix therapy. Await opinion of cardiothoracic's surgeon from [place] regarding how to manage aortic dissection which is felt to be chronic. Possible distal extension cannot be ruled out. Patient however have been noted to be more stable. Heart failure: Patient noted to have acute pulmonary edema. Recommend IV diuretics, good control of blood pressure. LVEF is noted to be depressed. Therefore patient has combined systolic and diastolic dysfunction. Recommend switch to carvedilol, YVETTE inhibitor/ARB/entresto therapy. In the meantime, will increase labetalol to 200 mg p.o. every 8. SVT: Agree with stopping Cardizem. Add small dose of digoxin.. Hypertensive emergency: Exact etiology not clear but suspect renal artery stenosis secondary to dissection progression, this possibility may need to be ruled out. In the meantime use antihypertensive agents. Blood pressure seems to have stabilized. Dyslipidemia: Continue with high potency statin therapy. I have requested records from [facility]. Patient will need outpatient appointment with cardiothoracic surgeon. - Time Time with patient: Greater than 35 minutes - CODE STATUS was discussed, patient remains full code. Surrogate decision-maker unchanged. Multiple medical problems were addressed. More than 50% of the time spent coordinating care, discussing management plans with involved caregivers. Management plans discussed with involved personnels. Medical decision making was of moderate to high complexity, patient's has multiple comorbidities. Medications reviewed and adjusted accordingly: Yes
[2018-06-13] MEDS: ATORVASTATIN CALCIUM 80 MG TABLET PO SCH (21:15)
[2018-06-14 04:55] LABS: HEMATOCRIT 43.1 % (37.9-51.0); HEMOGLOBIN 14.7 g/dL (13.5-17.0); MEAN CORPUSCULAR HEMOGLOBIN 30.2 pg (27.0-33.4); MEAN CORPUSCULAR HGB CONC 34.2 g/dL (32.0-36.0); MEAN CORPUSCULAR VOLUME 89 fl (80-97); PLATELET COUNT 171 10^3/uL (150-450); RED BLOOD COUNT 4.87 10^6/uL (4.35-5.55); RED CELL DISTRIBUTION WIDTH 14.2 % (11.5-14.0); WHITE BLOOD COUNT 7.3 10^3/uL (4.0-10.5)
[2018-06-14 05:22] LABS: ANION GAP 11 (5-19); BLOOD UREA NITROGEN 21 mg/dL (7-20); CALCIUM 9.1 mg/dL (8.4-10.2); CARBON DIOXIDE 28 mmol/L (22-30); CHLORIDE 102 mmol/L (98-107); GLUCOSE 105 mg/dL (75-110); POTASSIUM 4.5 mmol/L (3.6-5.0); SODIUM 140.9 mmol/L (137-145)
[2018-06-14] MEDS: DIGOXIN 0.125 MG TABLET PO SCH (10:24)
[2018-06-14] MEDS: CLOPIDOGREL BISULFATE 75 MG TABLET PO SCH (10:28)
[2018-06-14] MEDS: ALLOPURINOL 100 MG TABLET PO SCH ×2 (10:28→17:50)
[2018-06-14] MEDS: FUROSEMIDE 40 MG TABLET PO SCH (10:29)
[2018-06-14] MEDS: LABETALOL HCL 200 MG TABLET PO SCH ×2 (10:30→17:49)
--- NOTE | 2018-06-14 17:02 | RADIOLOGY REPORT (SQ) ---
EXAM DESCRIPTION: U/S SCROTUM W/DOPPLER COMPLETED DATE/TIME: 06/14/2018 4:45 pm REASON FOR STUDY: R scrotal/groin pain COMPARISON: CT chest abdomen and pelvis 06/12/2018 TECHNIQUE: Static and realtime jj scale imaging of the scrotum and testes. Selected color Doppler and spectral images recorded to document blood flow. LIMITATIONS: None. FINDINGS: RIGHT: TESTICLE: Normal size, 3.7 x 2.6 x 2.4 cm in size. Normal echotexture. Normal blood flow. No mass. EPIDIDYMIS: Normal. HYDROCELE OR VARICOCELE: No. HERNIA OR EXTRA-TESTICULAR MASS: No. OTHER: No other significant finding. LEFT: TESTICLE: Normal size, 3.5 x 3.2 x 2.1 cm in size. Normal echotexture. Normal blood flow. No mass. EPIDIDYMIS: Normal. HYDROCELE OR VARICOCELE: No. HERNIA OR EXTRA-TESTICULAR MASS: No. OTHER: No other significant finding. IMPRESSION: NORMAL SCROTAL ULTRASOUND. NO EVIDENCE OF TESTICULAR MASS OR TORSION. TECHNICAL DOCUMENTATION: JOB ID: [id number] [email or web address] All Rights Reserved Reading location - IP/workstation name: [email or web address]
--- NOTE | 2018-06-14 17:09 | PDOC PROGRESS REPORT ---
Subjective Progress Note for:: 06/14/18 Subjective:: No adverse events overnight. No new complaints. Vital signs are stable. Heart rate is controlled. He mainly complained about [place] Medicaid and how he could get any of his medications and how everything was better up in [place]. Reason For Visit: SVT Physical Exam Vital Signs: Temp Pulse Resp BP Pulse Ox 97.9 F 77 16 145/62 H 98 06/14/18 15:11 06/14/18 15:11 06/14/18 15:11 06/14/18 15:11 06/14/18 15:11 Intake & Output 06/13/18 06/14/18 06/15/18 06:59 06:59 06:59 Intake Total 742 480 Output Total 1265 1000 Balance -523 -520 Weight 84.8 kg General appearance: PRESENT: no acute distress, cooperative, obese Respiratory exam: PRESENT: clear to auscultation tone, unlabored. ABSENT: accessory muscle use, rales, rhonchi, tachypnea, wheezes Cardiovascular exam: PRESENT: RRR, +S1, +S2, systolic murmur. ABSENT: diastolic murmur GI/Abdominal exam: PRESENT: normal bowel sounds, soft. ABSENT: distended, guarding, rebound, tenderness Extremities exam: ABSENT: clubbing, pedal edema Musculoskeletal exam: PRESENT: normal inspection. ABSENT: deformity Neurological exam: PRESENT: alert, awake, oriented to person, oriented to place , oriented to time Psychiatric exam: PRESENT: appropriate affect, normal mood Results Laboratory Results: 06/14/18 03:52 06/14/18 03:52 06/14/18 06/14/18 03:52 03:52 WBC 7.3 RBC 4.87 Hgb 14.7 Hct 43.1 MCV 89 MCH 30.2 MCHC 34.2 RDW 14.2 H Plt Count 171 Sodium 140.9 Potassium 4.5 Chloride 102 Carbon Dioxide 28 Anion Gap 11 BUN 21 H Creatinine 0.97 Est GFR ( Amer) > 60 Est GFR (Non-Af Amer) > 60 Glucose 105 Calcium 9.1 Impressions: Chest/Abdomen CTA 06/12/18 10:27 IMPRESSION: 1. THORACIC AORTIC DISSECTION DESCRIBED. SIMILAR APPEARANCE TO THE PRIOR STUDY FROM 09/05/2017. 2. BILATERAL PLEURAL EFFUSIONS WITH BASILAR AIRSPACE DISEASE. Abdomen/Pelvis CTA 06/12/18 10:28 IMPRESSION: 1. STABLE AORTIC DISSECTION DESCRIBED. SIMILAR APPEARANCE TO THE PREVIOUS STUDY FROM 09/05/2017. MAJOR VESSELS ARE PATENT WITH NO OCCLUSION OR SIGNIFICANT NARROWING. NO ANEURYSMAL DILATION AND NO EVIDENCE OF AORTIC LEAK. 2. OTHER FINDINGS ABOVE INCLUDING GALLSTONES AND COLONIC DIVERTICULOSIS. Assessment & Plan - Diagnosis (1) SVT (supraventricular tachycardia) Is this a current diagnosis for this admission?: Yes Plan: According to him, he had not been taking any of his medications. Cardiology seen him. He has been put back on a beta-carla and his heart rates doing much better. (2) Hypertensive emergency Is this a current diagnosis for this admission?: Yes Plan: Resolved. Blood pressures doing much better. He will need addition of an YVETTE inhibitor or ARB. (3) Chronic dissection of thoracic aorta Is this a current diagnosis for this admission?: Yes Plan: Currently stable, does not seem to be expanded compared to previous studies. (4) Acute on chronic systolic congestive heart failure, NYHA class 1 Is this a current diagnosis for this admission?: Yes Plan: Likely exacerbated due to the hypertension and the SVT. This is resolved. He is currently on labetalol and Lasix. We will probably switch him over to Coreg and probably an YVETTE inhibitor or ARB. (5) Scrotal pain Is this a current diagnosis for this admission?: Yes Plan: Scrotal ultrasound pending - Time Time Spent with patient: 35 or more minutes
[2018-06-14] MEDS: ATORVASTATIN CALCIUM 80 MG TABLET PO SCH (21:28)
--- NOTE | 2018-06-14 22:59 | PDOC PROGRESS REPORT ---
Subjective Progress Note for:: 06/14/18 Subjective:: Patient seems to be doing better with gradual improvement. Pt is denying any chest arm or neck discomfort. Patient denying any PND, orthopnea. Patient denied any sustained palpitations, dizziness, syncope, near syncope. Patient denying any fever chills. Patient denying any other significant discomfort. No further back pain or chest pain noted. Patient however today had some scrotal and perineal pain which was evaluated by ultrasound and was noted to be unremarkable. Patient is maintaining sinus rhythm. Review of systems: Rest review of systems negative. Medications: Medications have been reviewed. Reason For Visit: SVT Physical Exam Vital Signs: Temp Pulse Resp BP Pulse Ox 98.1 F 78 20 129/57 H 95 06/14/18 19:40 06/14/18 19:40 06/14/18 19:40 06/14/18 19:40 06/14/18 19:40 Intake & Output 06/13/18 06/14/18 06/15/18 06:59 06:59 06:59 Intake Total 742 480 Output Total 1265 1115 Balance -523 -635 Weight 84.8 kg Exam: GENERAL: well-nourished and in no acute distress. Alert and oriented x3 HEAD: Atraumatic, normocephalic. EYES: Pupils equal round and reactive to light, extraocular movements intact, sclera anicteric, conjunctiva are normal. ENT: TMs normal, nares patent, oropharynx clear without exudates. Moist mucous membranes. No oral ulcerations or bleeding gums noted NECK: supple without lymphadenopathy. Trachea is central. No cervical or axillary lymphadenopathy noted. Carotids are 2+, JVD WNL LUNGS: Respiration seems nonlabored, no significant accessory muscle action noted. Breath sounds clear to auscultation bilaterally and equal noted. No wheezes rales or rhonchi noted. No significant dullness noted on percussion. CHEST: Palpation of the chest wall shows no significant chest wall tenderness. 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 ABDOMEN: Soft, no significant tenderness appreciated, normoactive bowel sounds. No guarding, no rebound. No rigidity noted . No masses appreciated. EXTREMITIES: Pedal pulses are 1-2+, no calf tenderness noted. No clubbing or cyanosis. negative pedal edema noted NEUROLOGICAL: Focused neurological exam showed no significant neurologic deficit. Normal speech, no focal weakness appreciated. PSYCH: Normal mood, normal affect. Judgment and insight within normal limits. SKIN: No significant ecchymosis, skin is noted to be warm. MUSCULOSKELETAL EXAM: No significant acute joint swelling noted. Results Laboratory Results: 06/14/18 03:52 06/14/18 03:52 06/14/18 06/14/18 03:52 03:52 WBC 7.3 RBC 4.87 Hgb 14.7 Hct 43.1 MCV 89 MCH 30.2 MCHC 34.2 RDW 14.2 H Plt Count 171 Sodium 140.9 Potassium 4.5 Chloride 102 Carbon Dioxide 28 Anion Gap 11 BUN 21 H Creatinine 0.97 Est GFR ( Amer) > 60 Est GFR (Non-Af Amer) > 60 Glucose 105 Calcium 9.1 EKG Comments: Telemetry strip shows sinus rhythm. No recurrence of SVT noted. Impressions: Chest/Abdomen CTA 06/12/18 10:27 IMPRESSION: 1. THORACIC AORTIC DISSECTION DESCRIBED. SIMILAR APPEARANCE TO THE PRIOR STUDY FROM 09/05/2017. 2. BILATERAL PLEURAL EFFUSIONS WITH BASILAR AIRSPACE DISEASE. Abdomen/Pelvis CTA 06/12/18 10:28 IMPRESSION: 1. STABLE AORTIC DISSECTION DESCRIBED. SIMILAR APPEARANCE TO THE PREVIOUS STUDY FROM 09/05/2017. MAJOR VESSELS ARE PATENT WITH NO OCCLUSION OR SIGNIFICANT NARROWING. NO ANEURYSMAL DILATION AND NO EVIDENCE OF AORTIC LEAK. 2. OTHER FINDINGS ABOVE INCLUDING GALLSTONES AND COLONIC DIVERTICULOSIS. Scrotum Ultrasound 06/14/18 00:00 IMPRESSION: NORMAL SCROTAL ULTRASOUND. NO EVIDENCE OF TESTICULAR MASS OR TORSION. Assessment & Plan - Diagnosis (1) Chest pain Qualifiers: Chest pain type: other chest pain Qualified Code(s): R07.89 - Other chest pain; R07.8 - Other chest pain Is this a current diagnosis for this admission?: Yes (2) Heart failure Qualifiers: Heart failure type: unspecified Heart failure chronicity: acute Qualified Code(s): I50.9 - Heart failure, unspecified Is this a current diagnosis for this admission?: Yes (3) SVT (supraventricular tachycardia) Is this a current diagnosis for this admission?: Yes (4) Chronic dissection of thoracic aorta Is this a current diagnosis for this admission?: Yes (5) Hypertensive emergency Is this a current diagnosis for this admission?: Yes (6) Dyslipidemia Is this a current diagnosis for this admission?: Yes (7) Acute hypoxemic respiratory failure Is this a current diagnosis for this admission?: Yes - Notes Notes: Troponin I elevation: This amount is most likely related to hypoxemic acute respiratory failure, severe hypertension and congestive heart failure. So far EKGs has been unremarkable. Chest pain: Now resolved. EKGs has been unremarkable. Troponins are in the high indeterminate range. Continue Plavix therapy. Heart failure: Patient noted to have acute pulmonary edema. Patient now placed on p.o. Lasix, good control of blood pressure. LVEF is noted to be depressed. Therefore patient has combined systolic and diastolic dysfunction. Recommend switch to carvedilol, YVETTE inhibitor/ARB/entresto therapy. In the meantime, will increase labetalol to 200 mg p.o. every 8. SVT: Agree with stopping Cardizem. Continue with beta-carla and small dose of digoxin. Hypertensive emergency: This is felt to be most likely related to patient being off blood pressure and other medications for several months. This is just essential hypertension which got worse due to noncompliance. Blood pressure seems to have stabilized. Dyslipidemia: Continue with high potency statin therapy. I have requested records from [facility]. Patient will need outpatient appointment with cardiothoracic surgeon. - Time Time with patient: Greater than 35 minutes - Patient has been stable from cardiac standpoint we will be happy to see patient on as needed basis. Further workup can be completed as an outpatient. Medications reviewed and adjusted accordingly: Yes
[2018-06-15 05:39] LABS: HEMATOCRIT 42.5 % (37.9-51.0); HEMOGLOBIN 14.7 g/dL (13.5-17.0); MEAN CORPUSCULAR HEMOGLOBIN 30.2 pg (27.0-33.4); MEAN CORPUSCULAR HGB CONC 34.7 g/dL (32.0-36.0); MEAN CORPUSCULAR VOLUME 87 fl (80-97); PLATELET COUNT 174 10^3/uL (150-450); RED BLOOD COUNT 4.88 10^6/uL (4.35-5.55); RED CELL DISTRIBUTION WIDTH 14.1 % (11.5-14.0); WHITE BLOOD COUNT 6.5 10^3/uL (4.0-10.5)
[2018-06-15 05:58] LABS: ANION GAP 8 (5-19); BLOOD UREA NITROGEN 24 mg/dL (7-20); CALCIUM 9.5 mg/dL (8.4-10.2); CARBON DIOXIDE 30 mmol/L (22-30); CHLORIDE 101 mmol/L (98-107); GLUCOSE 121 mg/dL (75-110)
[2018-06-15] MEDS: LABETALOL HCL 200 MG TABLET PO SCH (09:52)
[2018-06-15] MEDS: DIGOXIN 0.125 MG TABLET PO SCH (09:53)
[2018-06-15] MEDS: ALLOPURINOL 100 MG TABLET PO SCH (09:54)
[2018-06-15] MEDS: FUROSEMIDE 40 MG TABLET PO SCH (09:54)
[2018-06-15] MEDS: CLOPIDOGREL BISULFATE 75 MG TABLET PO SCH (09:54)
[2018-06-15 13:13] VITALS: BP 149/75
--- NOTE | 2018-06-15 17:58 | PDOC DISCHARGE SUMMARY ---
General - Admit/Disc Date/PCP Admission Date/Primary Care Provider: 06/13/18 10:13 Discharge Date: 06/15/18 - Discharge Diagnosis (1) SVT (supraventricular tachycardia) Is this a current diagnosis for this admission?: Yes Summary: He converted back to sinus rhythm once we got his blood pressure under control he got him back on his beta-carla. Cardiology also added digoxin. He did not recommend long-term anticoagulation. (2) Hypertensive emergency Is this a current diagnosis for this admission?: Yes Summary: Resolved once we got him back on his medication. (3) Chronic dissection of thoracic aorta Is this a current diagnosis for this admission?: Yes Summary: Stable without change from recent scan. He will have follow-up arranged locally for CT surgeon, probably in [place]. (4) Acute on chronic systolic congestive heart failure, NYHA class 1 Is this a current diagnosis for this admission?: Yes Summary: He responded well to diuretics. Cardiology recommended that he continue on a low dose of daily Lasix at home. (5) Scrotal pain Is this a current diagnosis for this admission?: Yes - Additional Information Resuscitation Status: Full Code Discharge Diet: Cardiac, Diabetic Discharge Activity: Activity As Tolerated Prescriptions: Allopurinol [Zyloprim 100 mg Tablet] 100 mg PO BID #60 tablet Atorvastatin Calcium [Lipitor 80 mg Tablet] 80 mg PO QHS #30 tablet Carvedilol 12.5 mg PO BID #60 tablet Clopidogrel Bisulfate [Plavix 75 mg Tablet] 75 mg PO DAILY #30 tablet Digoxin [Lanoxin 0.125 mg Tablet] 0.125 mg PO DAILY #30 tablet Furosemide 20 mg PO DAILY #30 tablet Metformin HCl 500 mg PO DAILY #30 tablet Home Medications: Allopurinol [Zyloprim 100 mg Tablet] 100 mg PO BID #60 tablet 06/15/18 Atorvastatin Calcium [Lipitor 80 mg Tablet] 80 mg PO QHS #30 tablet 06/15/18 Carvedilol 12.5 mg PO BID #60 tablet 06/15/18 Clopidogrel Bisulfate [Plavix 75 mg Tablet] 75 mg PO DAILY #30 tablet 06/15/18 Digoxin [Lanoxin 0.125 mg Tablet] 0.125 mg PO DAILY #30 tablet 06/15/18 Furosemide 20 mg PO DAILY #30 tablet 06/15/18 Metformin HCl 500 mg PO DAILY #30 tablet 06/15/18 History of Present Illness History of Present Illness: KING CHAVEZ SR is a 63 year old male who has a history of an extensive aortic dissection, diagnosed and repaired in 2002 though with persistent leak. Patient has been seen in this hospital several times since moving to this area from [place]. He had a CT scan in August and then 1 again during this ER stay which showed that the section is stable. He came into the ER via EMS for sudden onset tightness in the chest and difficulty breathing after having a bowel movement. In the ER he was found to be extremely hypertensive and tachycardic with heart rate over 200. He was found to be in SVT. He did not respond to adenosine. Ultimately he was placed on diltiazem drip and labetalol and his heart rate and blood pressure improved. His symptoms improved. He was followed by Dr. Hua in the ER. Dr. Hua evaluated the CT of the dissection and there was this possibility that the left renal artery had new area of dissection and therefore we asked that the patient be transferred to another hospital, higher level of care, thoracic surgery. The ER attempted to transfer the patient but there is no vent bed available at [facility]. He stayed here overnight. He has improved significantly and we have admitted him to the hospital for blood pressure and heart rate management along with new onset CHF possibly acute and rate related, slight troponin elevation. Hospital Course Hospital Course: He apparently had not been on any of his medications in several months which is why his blood pressure did what it did and why he went in SVT. We got his medications squared away and he did fine after that. He mostly complained about [place] Medicaid and how did not do as much for you as its [place] equivalent. It turns out that he has Medicare here, and that we were able to get him set up with a primary care provider, and that he has low co -pays all of his medications. His labs and examination were reassuring he was discharged in good condition. In addition, we also got him local follow-up with cardiology, who will facilitate his follow-up with CT surgery for his annual surveillance. Physical Exam Vital Signs: Temp Pulse Resp BP Pulse Ox 98.2 F 78 14 149/75 H 97 06/15/18 13:04 06/15/18 13:04 06/15/18 13:04 06/15/18 13:04 06/15/18 13:04 Intake & Output 06/14/18 06/15/18 06/16/18 06:59 06:59 06:59 Intake Total 742 1020 Output Total 1265 2190 Balance -523 -1170 Weight 84.8 kg 83.6 kg General appearance: PRESENT: no acute distress, cooperative, obese Respiratory exam: PRESENT: clear to auscultation tone, unlabored. ABSENT: accessory muscle use, rales, rhonchi, tachypnea, wheezes Cardiovascular exam: PRESENT: RRR, +S1, +S2, systolic murmur. ABSENT: diastolic murmur GI/Abdominal exam: PRESENT: normal bowel sounds, soft. ABSENT: distended, guarding, rebound, tenderness Extremities exam: ABSENT: clubbing, pedal edema Musculoskeletal exam: PRESENT: normal inspection. ABSENT: deformity Neurological exam: PRESENT: alert, awake, oriented to person, oriented to place , oriented to time Psychiatric exam: PRESENT: appropriate affect, normal mood Results Laboratory Results: 06/15/18 05:07 06/15/18 05:07 06/15/18 06/15/18 05:07 05:07 WBC 6.5 RBC 4.88 Hgb 14.7 Hct 42.5 MCV 87 MCH 30.2 MCHC 34.7 RDW 14.1 H Plt Count 174 Sodium 139.0 Potassium 4.0 Chloride 101 Carbon Dioxide 30 Anion Gap 8 BUN 24 H Creatinine 1.16 Est GFR ( Amer) > 60 Est GFR (Non-Af Amer) > 60 Glucose 121 H Calcium 9.5 Impressions: Chest/Abdomen CTA 06/12/18 10:27 IMPRESSION: 1. THORACIC AORTIC DISSECTION DESCRIBED. SIMILAR APPEARANCE TO THE PRIOR STUDY FROM 09/05/2017. 2. BILATERAL PLEURAL EFFUSIONS WITH BASILAR AIRSPACE DISEASE. Abdomen/Pelvis CTA 06/12/18 10:28 IMPRESSION: 1. STABLE AORTIC DISSECTION DESCRIBED. SIMILAR APPEARANCE TO THE PREVIOUS STUDY FROM 09/05/2017. MAJOR VESSELS ARE PATENT WITH NO OCCLUSION OR SIGNIFICANT NARROWING. NO ANEURYSMAL DILATION AND NO EVIDENCE OF AORTIC LEAK. 2. OTHER FINDINGS ABOVE INCLUDING GALLSTONES AND COLONIC DIVERTICULOSIS. Scrotum Ultrasound 06/14/18 00:00 IMPRESSION: NORMAL SCROTAL ULTRASOUND. NO EVIDENCE OF TESTICULAR MASS OR TORSION. Qualifiers - * PATIENT BEING DISCHARGED WITH ANY OF THE FOLLOWING DIAGNOSIS: No
== END 2018-06-15 13:42 | disposition home or self-care (01) | DRG 308 ==
LOC: ER 07:57 → UNDOADMIN 10:14 → EH 10:14 → 4N 06-13 11:20
PROVIDERS: ADMIT Internal Medicine; ATTEND Internal Medicine
PROC: 5A09457 Assistance with Respiratory Ventilation, 24-96 Consecutive Hours, Continuous Positive Airway Pressure (ICD-10-PCS; principal; 2018-06-12)
DX: I47.1 Supraventricular tachycardia (principal); I71.01 Dissection of thoracic aorta; J96.01 Acute respiratory failure with hypoxia; I50.23 Acute on chronic systolic (congestive) heart failure; I16.1 Hypertensive emergency; I70.1 Atherosclerosis of renal artery; E11.9 Type 2 diabetes mellitus without complications; T50.906A Underdosing of unspecified drugs, medicaments and biological substances, initial encounter; I11.0 Hypertensive heart disease with heart failure; R74.8 Abnormal levels of other serum enzymes; E78.5 Hyperlipidemia, unspecified; N50.82 Scrotal pain; M10.9 Gout, unspecified; Z87.891 Personal history of nicotine dependence; I69.320 Aphasia following cerebral infarction; Z79.02 Long term (current) use of antithrombotics/antiplatelets; Z79.899 Other long term (current) drug therapy; Z79.84 Long term (current) use of oral hypoglycemic drugs
CPT/HCPCS: 36415; 71275; 74174; 76870; 80048; 80053; 82962; 83036; 83605; 84484; 85025; 85027; 87040; 93005; 93010; 93306; 93976; 94660; 96374; 96375; 99285; J0153; J1815; J1940; J3490

== ENCOUNTER 2018-06-23 14:36 | Observation (INO) | payer MEDICARE ==
--- NOTE | 2018-06-23 15:48 | ER Document Report ---
ED General - General Chief Complaint: Chest Pain Stated Complaint: CHEST PAIN Time Seen by Provider: 06/23/18 15:45 Notes: Patient is a 63-year-old male that presents to the emergency department for chief complaint of chest tightness. Patient reports that he has had a few episodes of having tightness in his chest one earlier this morning, and then a second 1 about an hour prior to ED arrival. Both times the pain was exertional , describes as a tightness across his chest with associated shortness of breath , and at the time he rated it as a 3 out of 10. Denies having any nausea, vomiting, or diaphoresis. He reports a history of aortic valve repair, hypertension, diabetes mellitus, and hyperlipidemia. Denies prior history of coronary disease, CABG, or stenting in his heart. At this time he states the pain has resolved. He reports that he recently was in the hospital, because he had a fast heart rate, he was concerned that this was happening again. Past Medical History: CAD, diabetes mellitus, SVT, hypertension Past Surgical History: Aortic valve repair Social History: Denies tobacco, alcohol or drug use Family History: Reviewed and noncontributory for presenting illness Allergies: Reviewed, see documented allergy list. REVIEW OF SYSTEMS: Unless otherwise stated in this report the patient's positive and negative responses for review of systems for constitutional, eyes, ENT, cardiovascular, respiratory, gastrointestinal, neurological, genitourinary, musculoskeletal, and integumentary systems and related systems to the presenting problem are either as stated in the HPI or were not pertinent or were negative for the symptoms and/or complaints related to the presenting medical problem. PHYSICAL EXAMINATION: Vital signs reviewed, nursing noted reviewed. GENERAL: Well-appearing, well-nourished and in no acute distress. HEAD: Atraumatic, normocephalic. EYES: Eyes appear normal, extraocular movements intact, sclera anicteric, conjunctiva are normal. ENT: nares patent, oropharynx clear without exudates. Moist mucous membranes. NECK: Normal range of motion, supple without lymphadenopathy LUNGS: Breath sounds clear to auscultation bilaterally and equal. No wheezes rales or rhonchi. No chest wall tenderness HEART: Regular rate and rhythm without murmurs ABDOMEN: Soft, nontender, normoactive bowel sounds. No rebound, guarding, or rigidity. No masses appreciated. EXTREMITIES: Nontender, good range of motion, no pitting or edema. NEUROLOGICAL: No focal neurological deficits. Moves all extremities spontaneously Motor and sensory grossly intact on exam. PSYCH: Normal mood, normal affect. SKIN: Warm, Dry, normal turgor, no rashes or lesions noted on exposed skin TRAVEL OUTSIDE OF THE [place] IN LAST 30 DAYS: No - Related Data Allergies/Adverse Reactions: nitroglycerin Allergy (Verified 06/23/18 14:39) Past Medical History - Social History Smoking Status: Never Smoker Chew tobacco use (# tins/day): No Frequency of alcohol use: None Drug Abuse: None Family History: Reviewed & Not Pertinent, Hypertension Patient has suicidal ideation: No Patient has homicidal ideation: No - Past Medical History Cardiac Medical History: Reports: Hx Hypercholesterolemia, Hx Hypertension Denies: Hx Atrial Fibrillation, Hx Heart Attack Pulmonary Medical History: Reports: Hx Intubation Denies: Hx COPD Neurological Medical History: Reports: Hx Cerebrovascular Accident - 2014 Endocrine Medical History: Reports: Hx Diabetes Mellitus Type 2 Renal/ Medical History: Denies: Hx Peritoneal Dialysis Musculoskeletal Medical History: Reports Hx Gout Skin Medical History: Denies Hx Eczema, Denies Hx Psoriasis Psychiatric Medical History: Denies: Hx Depression Past Surgical History: Reports: Hx Cardiac Surgery - valve repair, Hx Orthopedic Surgery - Back surgery, type unknown, Hx Vascular Surgery, Other - Aortic Arch dissection repair Physical Exam - Vital signs Vitals: Temp Pulse Resp BP Pulse Ox 97.9 F 76 16 175/74 H 98 06/23/18 14:55 06/23/18 14:55 06/23/18 14:55 06/23/18 14:55 06/23/18 14:55 Course - Re-evaluation Re-evalutation: Patient seen and examined vital signs reviewed. Laboratory data and imaging were ordered as appropriate for the patient's presenting symptoms and complaint, with consideration of any critical or life threatening conditions that may be associated with their obtained history and exam as noted above. Patient was treated with aspirin Results were reviewed when available and demonstrated negative troponin fact downtrending from prior, EKG demonstrated to T wave inversions as noted in full dictation, rest the patient's blood work was unremarkable The patient was re-evaluated and was stable, received aspirin, advised observation in the hospital, for stress testing Evaluation was most consistent with chest pain, needing further evaluation given patient risk factors and history Results were discussed with the patient at this point after careful consideration I feel that that patient should be admitted to the hospital. This was discussed with the patient that it is in the best interest for their care to be admitted for further evaluation and management. Patient agreed with this plan of care. A call was placed to the admitted physician, Dr. Villafana who graciously accepted the patient onto their service. The case was also discussed with the backroom associate Dr. Hua who will plan for stress testing. *Note is created using voice recognition software and may contain spelling, syntax or grammatical errors. Laboratory 06/23/18 06/23/18 06/23/18 15:54 15:54 15:54 WBC 7.8 RBC 5.16 Hgb 15.6 Hct 44.9 MCV 87 MCH 30.1 MCHC 34.6 RDW 14.1 H Plt Count 214 Seg Neutrophils % 67.2 Lymphocytes % 20.7 Monocytes % 9.9 Eosinophils % 1.3 Basophils % 0.9 Absolute Neutrophils 5.2 Absolute Lymphocytes 1.6 Absolute Monocytes 0.8 Absolute Eosinophils 0.1 Absolute Basophils 0.1 Sodium 142.1 Potassium 4.1 Chloride 101 Carbon Dioxide 33 H Anion Gap 8 BUN 26 H Creatinine 1.09 Est GFR ( Amer) > 60 Est GFR (Non-Af Amer) > 60 Glucose 121 H Calcium 9.6 Total Bilirubin 1.0 Direct Bilirubin 0.3 Neonat Total Bilirubin Not Reportable Neonat Direct Bilirubin Not Reportable Neonat Indirect Bili Not Reportable AST 20 ALT 13 L Alkaline Phosphatase 56 Troponin I 0.016 Total Protein 7.6 Albumin 4.4 Urine Color Urine Appearance Urine pH Ur Specific [place] Urine Protein Urine Glucose (UA) Urine Ketones Urine Blood Urine Nitrite Urine Bilirubin Urine Urobilinogen Ur Leukocyte Esterase Urine WBC (Auto) Urine RBC (Auto) Urine Mucus (Auto) Urine Ascorbic Acid 06/23/18 15:54 WBC RBC Hgb Hct MCV MCH MCHC RDW Plt Count Seg Neutrophils % Lymphocytes % Monocytes % Eosinophils % Basophils % Absolute Neutrophils Absolute Lymphocytes Absolute Monocytes Absolute Eosinophils Absolute Basophils Sodium Potassium Chloride Carbon Dioxide Anion Gap BUN Creatinine Est GFR ( Amer) Est GFR (Non-Af Amer) Glucose Calcium Total Bilirubin Direct Bilirubin Neonat Total Bilirubin Neonat Direct Bilirubin Neonat Indirect Bili AST ALT Alkaline Phosphatase Troponin I Total Protein Albumin Urine Color YELLOW Urine Appearance CLEAR Urine pH 5.0 Ur Specific [place] 1.013 Urine Protein NEGATIVE Urine Glucose (UA) NEGATIVE Urine Ketones NEGATIVE Urine Blood SMALL H Urine Nitrite NEGATIVE Urine Bilirubin NEGATIVE Urine Urobilinogen NEGATIVE Ur Leukocyte Esterase NEGATIVE Urine WBC (Auto) 0 Urine RBC (Auto) 2 Urine Mucus (Auto) RARE Urine Ascorbic Acid NEGATIVE Chest X-Ray 06/23/18 15:45 IMPRESSION: Mild cardiomegaly without evidence of acute cardiopulmonary disease. - Vital Signs Vital signs: Temp Pulse Resp BP Pulse Ox 97.9 F 76 16 175/74 H 100 06/23/18 14:55 06/23/18 14:55 06/23/18 14:55 06/23/18 14:55 06/23/18 15:57 - Laboratory Result Diagrams: 06/23/18 15:54 06/23/18 15:54 Laboratory results interpreted by me: 06/23/18 06/23/18 06/23/18 15:54 15:54 15:54 RDW 14.1 H Carbon Dioxide 33 H BUN 26 H Glucose 121 H ALT 13 L Urine Blood SMALL H - EKG Interpretation by Me Additional EKG results interpreted by me: EKG demonstrates sinus rhythm with a ventricular rate of 77 bpm, left axis deviation, normal intervals, there are T wave inversions noted in leads I and aVL, this is compared with prior EKG from 06/12/2018, at that time he was in SVT. Discharge - Discharge Clinical Impression: Chest pain Qualifiers: Chest pain type: unspecified Qualified Code(s): R07.9 - Chest pain, unspecified Condition: Stable Disposition: ADMITTED INPATIENT Admitting Provider: Hospitalist - Dr. Villafana Unit Admitted: Telemetry
[2018-06-23 16:08] LABS: APPEARANCE,URINE CLEAR; BILIRUBIN,URINE NEGATIVE (NEGATIVE); COLOR,URINE YELLOW; GLUCOSE, URINE NEGATIVE (NEGATIVE); KETONES,URINE NEGATIVE (NEGATIVE); LEUKOCYTE ESTERASE,URINE NEGATIVE (NEGATIVE); NITRITE,URINE NEGATIVE (NEGATIVE); PROTEIN,URINE NEGATIVE (NEGATIVE); URINE SPECIFIC GRAVITY 1.013; UROBILINOGEN,URINE NEGATIVE mg/dL (<2.0)
[2018-06-23 16:09] LABS: ABSOLUTE BASOPHILS # (AUTO) 0.1 10^3/uL (0.0-0.2); ABSOLUTE EOSINOPHILS # (AUTO) 0.1 10^3/uL (0.0-0.6); ABSOLUTE LYMPHOCYTES (AUTO) 1.6 10^3/uL (0.5-4.7); ABSOLUTE MONOCYTES (AUTO) 0.8 10^3/uL (0.1-1.4); ABSOLUTE NEUT (AUTO) 5.2 10^3/uL (1.7-8.2); BASOPHILS % (AUTO) 0.9 % (0-2); EOSINOPHILS % (AUTO) 1.3 % (0-6); HEMATOCRIT 44.9 % (37.9-51.0); HEMOGLOBIN 15.6 g/dL (13.5-17.0); LYMPHOCYTES % (AUTO) 20.7 % (13-45); MEAN CORPUSCULAR HEMOGLOBIN 30.1 pg (27.0-33.4); MEAN CORPUSCULAR HGB CONC 34.6 g/dL (32.0-36.0); MEAN CORPUSCULAR VOLUME 87 fl (80-97); MONOCYTES % (AUTO) 9.9 % (3-13); PLATELET COUNT 214 10^3/uL (150-450); RED BLOOD COUNT 5.16 10^6/uL (4.35-5.55); RED CELL DISTRIBUTION WIDTH 14.1 % (11.5-14.0); SEGMENTED NEUTROPHILS % (AUTO) 67.2 % (42-78); TOTAL CELLS COUNTED % (AUTO) 100 %; WHITE BLOOD COUNT 7.8 10^3/uL (4.0-10.5)
[2018-06-23] MEDS ORDERED: ASPIRIN 81 MG TABLET, CHEWABLE PO ONE (16:09)
[2018-06-23 16:29] LABS: ALANINE AMINOTRANSFERASE 13 U/L (21-72); ALBUMIN 4.4 g/dL (3.5-5.0); ALKALINE PHOSPHATASE 56 U/L (38-126); ANION GAP 8 (5-19); ASPARTATE AMINO TRANSFERASE 20 U/L (17-59); BILIRUBIN,DIRECT 0.3 mg/dL (0.0-0.4); BLOOD UREA NITROGEN 26 mg/dL (7-20); CALCIUM 9.6 mg/dL (8.4-10.2); CARBON DIOXIDE 33 mmol/L (22-30); CHLORIDE 101 mmol/L (98-107); GLUCOSE 121 mg/dL (75-110); POTASSIUM 4.1 mmol/L (3.6-5.0); SODIUM 142.1 mmol/L (137-145); TOTAL PROTEIN 7.6 g/dL (6.3-8.2)
--- NOTE | 2018-06-23 16:34 | RADIOLOGY REPORT (SQ) ---
EXAM DESCRIPTION: CHEST SINGLE VIEW COMPLETED DATE/TIME: 06/23/2018 4:22 pm REASON FOR STUDY: chest pain COMPARISON: Chest CT 06/12/2018 EXAM PARAMETERS: NUMBER OF VIEWS: One view. TECHNIQUE: Single frontal radiographic view of the chest acquired. RADIATION DOSE: NA LIMITATIONS: None. FINDINGS: LUNGS AND PLEURA: No opacities, masses or pneumothorax. No pleural effusion. MEDIASTINUM AND HILAR STRUCTURES: No masses. Contour normal. HEART AND VASCULAR STRUCTURES: Mild cardiomegaly. Normal vasculature. The patient's known thoracic aortic dissection is not definitely identified on plain films. BONES: No acute findings. HARDWARE: Status post midline sternotomy. OTHER: No other significant finding. IMPRESSION: Mild cardiomegaly without evidence of acute cardiopulmonary disease. TECHNICAL DOCUMENTATION: JOB ID: [id number] [employer]- All Rights Reserved Reading location - IP/workstation name: [email or web address]
[2018-06-23] MEDS ORDERED: ACETAMINOPHEN 325 MG TABLET PO PRN (17:29)
[2018-06-23] MEDS ORDERED: ONDANSETRON HCL INJ/PF 4 MG/2 ML SDV IV PRN (17:29)
[2018-06-23] MEDS ORDERED: NITROGLYCERIN 0.4 MG/TAB 25 TAB/BOTTLE SL PRN (17:38)
[2018-06-23] MEDS ORDERED: DEXTROSE 40% GEL 15 GM TUBE PO PRN ×2 (17:39)
[2018-06-23] MEDS ORDERED: DEXTROSE 50%-WATER 25 GM/50 ML DISP.SYRIN IV PRN ×2 (17:39)
[2018-06-23] MEDS ORDERED: INSULIN REG, HUMAN 100 UNIT/ML 3 ML VIAL (PYX) SUBCUT PRN (17:39)
[2018-06-23] MEDS ORDERED: GLUCAGON,HUMAN RECOMB 1 MG INJ IM PRN (17:39)
[2018-06-23] MEDS ORDERED: HYDRALAZINE HCL INJ/PF 20 MG/1 ML SDV IV PRN (17:40)
--- NOTE | 2018-06-23 17:53 | PDOC H&P ---
History of Present Illness Admission Date/PCP: 06/23/18 17:30 Patient complains of: Chest pain History of Present Illness: KING CHAVEZ SR is a 63 year old male who was just discharged from the hospital after suffering SVT. Patient at that time was identified as having diastolic and systolic heart failure. An echocardiogram revealed an ejection fraction of 45%. His EKG showed LVH with some repolarization abnormalities. He had moved from the [place] area had no medications and presented with hypertensive urgency and SVT. Patient has a complicated history with a aortic dissection from the ascending arch to the iliac arteries repaired in 2002. It appeared to be stable during his last hospital stay. Patient was discharged with prescriptions which the nurses in the ER state he relayed to them he did not fill those however he tells me that he has been taking them. Patient states that last evening he developed some chest tightness and also had some numbness in his right leg there was no motor weakness the numbness persisted he had woken up this morning and while taking his daughter to school and his he developed more chest pain and later in the day he had another episode and he presented to the emergency room. Workup in the emergency room included an EKG which showed some biphasic T waves in [address] depression which does appear to be new from August 2017. The aVL ST changes appear unchanged otherwise the EKG shows no changes. His troponin was 0.012 they were higher during his last hospital stay. Patient did not receive a stress test during his last hospitalization. The ER contacted Dr. Hua who saw the patient in consultation during his last hospital stay and recommended he be admitted and undergo a stress test. Also unclear if patient has been taking his medication he has been complaining of loose stools since discharge he was discharged on metformin for his diabetes. His hemoglobin A1c however was 5.7 Past Medical History Cardiac Medical History: Reports: Hyperlipidema, Hypertension Denies: Atrial Fibrillation, Myocardial Infarction Pulmonary Medical History: Reports: Intubation Denies: Chronic Obstructive Pulmonary Disease (COPD) Endocrine Medical History: Reports: Diabetes Mellitus Type 2 Musculoskeltal Medical History: Reports: Gout Skin Medical History: Denies: Eczema, Psoriasis Psychiatric Medical History: Denies: Depression Hematology: Denies: Anemia, Bleeding Tendencies Past Surgical History Past Surgical History: Reports: Orthopedic Surgery - Back surgery, type unknown , Vascular Surgery, Other - Aortic Arch dissection repair Social History Smoking Status: Never Smoker Frequency of Alcohol Use: Rare Hx Recreational Drug Use: No Drugs: None Hx Prescription Drug Abuse: No - Advance Directive Resuscitation Status: Full Code Family History Family History: CAD, Hypertension Parental Family History Reviewed: Yes Children Family History Reviewed: Yes Sibling(s) Family History Reviewed.: Yes Medication/Allergy Home Medications: Allopurinol [Zyloprim 100 mg Tablet] 100 mg PO BID #60 tablet 06/15/18 Atorvastatin Calcium [Lipitor 80 mg Tablet] 80 mg PO QHS #30 tablet 06/15/18 Carvedilol 12.5 mg PO BID #60 tablet 06/15/18 Clopidogrel Bisulfate [Plavix 75 mg Tablet] 75 mg PO DAILY #30 tablet 06/15/18 Digoxin [Lanoxin 0.125 mg Tablet] 0.125 mg PO DAILY #30 tablet 06/15/18 Furosemide 20 mg PO DAILY #30 tablet 06/15/18 Metformin HCl 500 mg PO DAILY #30 tablet 06/15/18 Allergies/Adverse Reactions: nitroglycerin Allergy (Verified 06/23/18 14:39) Review of Systems All systems: reviewed and no additional remarkable complaints except as stated - Chest pain and right leg numbness Physical Exam Vital Signs: Temp Pulse Resp BP Pulse Ox 97.9 F 76 16 175/74 H 100 06/23/18 14:55 06/23/18 14:55 06/23/18 14:55 06/23/18 14:55 06/23/18 15:57 General appearance: PRESENT: no acute distress, well-developed, well-nourished Eye exam: PRESENT: conjunctiva pink, EOMI, PERRLA. ABSENT: scleral icterus Neck exam: PRESENT: carotid bruit - Bilateral likely referred murmur from heart. ABSENT: JVD, lymphadenopathy, thyromegaly Respiratory exam: PRESENT: clear to auscultation tone. ABSENT: rales, rhonchi, wheezes Cardiovascular exam: PRESENT: RRR, systolic murmur - 3/6 systolic murmur. ABSENT: diastolic murmur, rubs Pulses: PRESENT: normal dorsalis pedis pul Vascular exam: PRESENT: normal capillary refill GI/Abdominal exam: PRESENT: normal bowel sounds, soft. ABSENT: distended, guarding, mass, organolmegaly, rebound, tenderness Extremities exam: PRESENT: full ROM. ABSENT: calf tenderness, clubbing, pedal edema Neurological exam: PRESENT: alert, awake, oriented to person, oriented to place , oriented to time, oriented to situation, CN II-XII grossly intact, other - Checked of numbness right leg. ABSENT: motor sensory deficit Psychiatric exam: PRESENT: appropriate affect, normal mood. ABSENT: homicidal ideation, suicidal ideation Skin exam: PRESENT: dry, intact, warm. ABSENT: cyanosis, rash Results Impressions: Chest X-Ray 06/23/18 15:45 IMPRESSION: Mild cardiomegaly without evidence of acute cardiopulmonary disease. Assessment & Plan - Diagnosis (1) Chest pain Qualifiers: Chest pain type: unspecified Qualified Code(s): R07.9 - Chest pain, unspecified Is this a current diagnosis for this admission?: Yes Plan: Patient has a number of risk factors for coronary disease his EKG does show some subtle changes from August 2017. Patient will be admitted continue his outpatient medications with the exception of the metformin which may be causing loose stools and schedule patient for a stress test. Will trend serial cardiac enzymes (2) Hypertension Is this a current diagnosis for this admission?: Yes Plan: Remains poorly controlled. Question of whether patient has been taking his medications as there is drooling history is provided by the patient. We will asked nursing to contact patient's pharmacy and confirmed that he has indeed picked up his medications from his prior discharge. As patient has a mild cardiomyopathy with congestive ejection fraction of 45% we will continue his Coreg and lisinopril 20 mg (3) Chronic dissection of thoracic aorta Is this a current diagnosis for this admission?: Yes Plan: No further workup planned. (4) Dyslipidemia Is this a current diagnosis for this admission?: Yes Plan: Continue his atorvastatin (5) Gout Is this a current diagnosis for this admission?: Yes Plan: Continue allopurinol (6) Diabetes mellitus type 2 in obese Is this a current diagnosis for this admission?: Yes Plan: Patient having loose stools if he indeed is taking his metformin will discontinue and use diet therapy alone as his hemoglobin A1c was 5.7 (7) Peripheral neuropathy Is this a current diagnosis for this admission?: Yes Plan: Numbness in the right leg likely a peripheral neuropathy. He does have an aortic dissection down to the iliacs but he has strong pulses bilaterally at the posterior tibial level. He additionally has a history of 2 CVAs but he says the numbness is new and he has a history of lumbar radiculopathy and status post lumbar surgery. No further workup planned inpatient for this and can be followed up in outpatient setting (8) Cardiomyopathy Is this a current diagnosis for this admission?: Yes Plan: Ejection fraction 45% with grade 2 diastolic dysfunction by echocardiography a week ago. No BNP was obtained he is 100% saturation on room evidence of heart failure at this time will obtain a BNP for his baseline additionally will check a thyroid. He is on a beta-carla we will add an YVETTE inhibitor continue his furosemide - Time Time Spent: 50 to 70 Minutes Anticipated discharge: Home Within: within 24 hours - Inpatient Certification Based on my medical assessment, after consideration of the patient's comorbidities, presenting symptoms, or acuity I expect that the services needed warrant INPATIENT care.: Yes I certify that my determination is in accordance with my understanding of Medicare's requirements for reasonable and necessary INPATIENT services [42 CFR 412.3e].: Yes Medical Necessity: Need Close Monitoring Due to Risk of Patient Decompensation
[2018-06-23] MEDS ORDERED: ALLOPURINOL 100 MG TABLET PO SCH (18:00)
[2018-06-23] MEDS ORDERED: CARVEDILOL 12.5 MG TABLET PO SCH ×2 (18:00→22:00)
[2018-06-23] MEDS ORDERED: LISINOPRIL 10 MG TABLET PO ONE (18:30)
[2018-06-23] MEDS ORDERED: ATORVASTATIN CALCIUM 80 MG TABLET PO SCH (22:00)
--- NOTE | 2018-06-23 22:15 | Progress Note ---
Provider Note Provider Note: Patient seen on evening rounds. He was admitted with chest pain. Patient claims he has been compliant but blood pressure was noted to be elevated. patient has noted some intermittent weakness of his left leg. Patient has been is scheduled for a nuclear this was discussed with the patient. He is agreeable to pursue this test. Have ordered a EKG for the morning. Have optimized the patient's antihypertensive regimen.
[2018-06-23 22:20] LABS: TROPONIN I 0.015 ng/mL
[2018-06-23] MEDS: FAMOTIDINE 20 MG TABLET PO SCH (22:25)
[2018-06-23] MEDS: ALLOPURINOL 100 MG TABLET PO SCH (22:25)
--- NOTE | 2018-06-23 22:42 | EKG REPORT ---
SEVERITY:- ABNORMAL ECG - SINUS RHYTHM LEFT ANTERIOR FASCICULAR BLOCK PROBABLE LVH WITH SECONDARY REPOL ABNRM : Confirmed by: Belinda Hua 23-Jun-2018 22:41:31
[2018-06-24 04:01] LABS: ABSOLUTE BASOPHILS # (AUTO) 0.1 10^3/uL (0.0-0.2); ABSOLUTE EOSINOPHILS # (AUTO) 0.1 10^3/uL (0.0-0.6); ABSOLUTE LYMPHOCYTES (AUTO) 1.9 10^3/uL (0.5-4.7); ABSOLUTE MONOCYTES (AUTO) 0.8 10^3/uL (0.1-1.4); ABSOLUTE NEUT (AUTO) 4.1 10^3/uL (1.7-8.2); HEMATOCRIT 42.2 % (37.9-51.0); HEMOGLOBIN 14.7 g/dL (13.5-17.0); LYMPHOCYTES % (AUTO) 27.3 % (13-45); MEAN CORPUSCULAR HEMOGLOBIN 30.2 pg (27.0-33.4); MEAN CORPUSCULAR HGB CONC 34.8 g/dL (32.0-36.0); MEAN CORPUSCULAR VOLUME 87 fl (80-97); MONOCYTES % (AUTO) 11.4 % (3-13); PLATELET COUNT 193 10^3/uL (150-450); RED BLOOD COUNT 4.85 10^6/uL (4.35-5.55); SEGMENTED NEUTROPHILS % (AUTO) 58.3 % (42-78); TOTAL CELLS COUNTED % (AUTO) 100 %; WHITE BLOOD COUNT 7.1 10^3/uL (4.0-10.5)
[2018-06-24 04:16] LABS: ANION GAP 7 (5-19); BLOOD UREA NITROGEN 23 mg/dL (7-20); CALCIUM 9.3 mg/dL (8.4-10.2); CARBON DIOXIDE 28 mmol/L (22-30); CHLORIDE 105 mmol/L (98-107); GLUCOSE 119 mg/dL (75-110); POTASSIUM 3.5 mmol/L (3.6-5.0)
[2018-06-24] MEDS ORDERED: POTASSIUM CHLORIDE 20 MEQ/15 ML UDCUP PO ONE (07:54)
--- NOTE | 2018-06-24 09:13 | EKG REPORT ---
SEVERITY:- ABNORMAL ECG - SINUS RHYTHM LEFT ANTERIOR FASCICULAR BLOCK PROBABLE LVH WITH SECONDARY REPOL ABNRM : Confirmed by: Belinda Hua 24-Jun-2018 09:12:29
[2018-06-24] MEDS ORDERED: DIGOXIN 0.125 MG TABLET PO SCH (10:00)
[2018-06-24] MEDS ORDERED: ENOXAPARIN SODIUM INJ 40 MG/0.4 ML DISP.SYRIN SUBCUT SCH (10:00)
[2018-06-24] MEDS ORDERED: LISINOPRIL 10 MG TABLET PO SCH ×2 (10:00→10:45)
[2018-06-24] MEDS ORDERED: FUROSEMIDE 20 MG TABLET PO SCH (10:00)
[2018-06-24] MEDS ORDERED: CLOPIDOGREL BISULFATE 75 MG TABLET PO SCH (10:00)
[2018-06-24] MEDS ORDERED: CARVEDILOL 12.5 MG TABLET PO SCH (10:00)
[2018-06-24] MEDS ORDERED: DOCUSATE SODIUM 100 MG CAPSULE PO SCH (10:00)
[2018-06-24] MEDS ORDERED: REGADENOSON INJ 0.4 MG/5 ML DISP.SYRIN IV ONE (11:17)
[2018-06-24] MEDS: ALLOPURINOL 100 MG TABLET PO SCH (11:33)
[2018-06-24] MEDS: FAMOTIDINE 20 MG TABLET PO SCH (11:34)
[2018-06-24] MEDS ORDERED: POTASSIUM CHLORIDE 20 MEQ/15 ML UDCUP ONE (11:39)
--- NOTE | 2018-06-24 13:03 | DRAGON STRESS TEST REPORT ---
INTRAVENOUS LEXISCAN CARDIOLITE STRESS TEST USING SINGLE PHOTON EMMISION COMPUTERIZED TOMOGRAPHIC. DATE OF PROCEDURE: June 24, 2018, INDICATION : Chest pain CARDIAC RISK FACTORS: Diabetes, hypertension, dyslipidemia, history of thoracic aortic aneurysm dissection RESTING EKG: Sinus rhythm, minor nonspecific IVCD. STRESS EKG: No significant ST segment changes noted with LexiScan bolus REASON FOR TERMINATION: Protocol. PROCEDURE REPORT: Baseline heart rate 68 beats per minute with blood pressure of 137/63. Patient had no significant complaints. Patient was bolused with Lexiscan 0.4 mg intravenously followed by saline bolus. Heart rate at 2 minutes post bolus 93 with a blood pressure of 149/66. 3 minutes post bolus heart rate 86 with blood pressure of 150/58. No significant EKG changes were noted. Patient had no significant complaints during the procedure or postprocedure. CONCLUSIONS: Normal EKG and hemodynamic response to IV LexiScan. NUCLEAR DATA: At rest the patient was given 12.48 millicuries of technetium 99 sestamibi injected intravenously. As per protocol rest gated SPECT images were obtained. On day of stress test, the patient was given intravenous LexiScan at a dose of 0.4 mg in 5 mL intravenously, followed by flush with normal saline. Subsequently the stress dose of 37.6 millicuries of technetium 99 sestamibi was injected intravenously. As per protocol stress gated images were obtained. NUCLEAR INTERPRETATION: Both raw and processed data were used for interpretation. Visual, qualitative, computer-generated quantitative data was used. There was good myocardial uptake of technetium compound. Motion artifact and soft tissue attenuations were noted. Increased visceral uptake was noted. No definitive areas of transient perfusion defect noted except for mild decreased uptake in the distal inferolateral wall in stress images consistent with probable mild ischemia versus differences in diaphragmatic attenuation and visceral uptake artifact. No corresponding significant regional wall motion normality. Total SDS score was noted to be 3. No definitive areas of fixed perfusion defect or scars noted. EKG gated imaging showed LV EF at 38 %, rest and stress gated EF similar visually, with mild diffuse hypokinesia. T. I D. ratio was 1.04. Lung heart ratio noted to be within normal limits 0.33. No significant extracardiac and abnormal radiotracer activities were noted. RV free wall uptake was noted to be WNL. IMPRESSION: Also refer to comments under nuclear interpretation. Also test results needs to be interpreted in the context of pretest probability. 1. No definitive areas of transient perfusion defect noted except for mild decreased uptake in the distal inferolateral wall in stress images consistent with probable mild ischemia versus differences in diaphragmatic attenuation and visceral uptake artifact. Total SDS is 3 therefore recommend medical management at this point. 2. There is no definitive scintigraphic evidence of myocardial infarction/scar. 3. EKG gated imaging shows left ventricular ejection fraction of approx. 38 %. 4. Clinical correlation requested as worse disease and or balanced ischemia could be missed. In approximately 10% of the cases Lexiscan may not cause adequate vasodilatory stress. RECOMMENDATIONS: Aggressive risk factor modification and medical management. Further evaluation may be needed if continued symptoms or other high risk indicators are noted on clinical evaluation. Close cardiology follow-up is also recommended. Clinical correlation with echocardiogram derived ejection fraction. Inability to exercise by itself can lead to increased cardiovascular event risks. Consider cardiology consultation and or follow-up if clinically indicated. I am available for cardiology evaluation and consultation if requested by the tie maker, unless patient already has a industrial relations manager. Dr. Pamela Hua. MRCP Board certified in cardiology and sleep medicine. Board certified in nuclear cardiology, adult echocardiography. ЕЛЕНА
[2018-06-24 16:11] VITALS: BP 123/57
--- NOTE | 2018-06-24 16:42 | PDOC DISCHARGE SUMMARY ---
General - Admit/Disc Date/PCP Admission Date/Primary Care Provider: 06/23/18 17:30 Discharge Date: 06/24/18 - Discharge Diagnosis (1) Chest pain Is this a current diagnosis for this admission?: Yes (2) Hypertension Is this a current diagnosis for this admission?: Yes (3) Chronic dissection of thoracic aorta Is this a current diagnosis for this admission?: Yes (4) Dyslipidemia Is this a current diagnosis for this admission?: Yes (5) Gout Is this a current diagnosis for this admission?: Yes (6) Diabetes mellitus type 2 in obese Is this a current diagnosis for this admission?: Yes (7) Peripheral neuropathy Is this a current diagnosis for this admission?: Yes (8) Cardiomyopathy Is this a current diagnosis for this admission?: Yes - Additional Information Resuscitation Status: Full Code Discharge Diet: As Tolerated Discharge Activity: Activity As Tolerated Prescriptions: Isosorbide Mononitrate [Imdur 30 mg Tablet.er] 30 mg PO DAILY #30 tab.er.24h Lisinopril [Prinivil 10 mg Tablet] 20 mg PO Q12 #30 tablet Home Medications: Allopurinol [Zyloprim 100 mg Tablet] 100 mg PO BID #60 tablet 06/15/18 Atorvastatin Calcium [Lipitor 80 mg Tablet] 80 mg PO QHS #30 tablet 06/15/18 Carvedilol 12.5 mg PO BID #60 tablet 06/15/18 Clopidogrel Bisulfate [Plavix 75 mg Tablet] 75 mg PO DAILY #30 tablet 06/15/18 Digoxin [Lanoxin 0.125 mg Tablet] 0.125 mg PO DAILY #30 tablet 06/15/18 Furosemide 20 mg PO DAILY #30 tablet 06/15/18 Famotidine [Pepcid 20 mg Tablet] 20 mg PO Q12 tablet 06/24/18 Isosorbide Mononitrate [Imdur 30 mg Tablet.er] 30 mg PO DAILY #30 tab.er.24h Lisinopril [Prinivil 10 mg Tablet] 20 mg PO Q12 #30 tablet 06/24/18 History of Present Illness History of Present Illness: SUSAN CHAVEZ SR is a 63 year old male who was just discharged from the hospital after suffering SVT. Patient at that time was identified as having diastolic and systolic heart failure. An echocardiogram revealed an ejection fraction of 45%. His EKG showed LVH with some repolarization abnormalities. He had moved from the [place] area had no medications and presented with hypertensive urgency and SVT. Patient has a complicated history with a aortic dissection from the ascending arch to the iliac arteries repaired in 2002. It appeared to be stable during his last hospital stay. Patient was discharged with prescriptions which the nurses in the ER state he relayed to them he did not fill those however he tells me that he has been taking them. Patient states that last evening he developed some chest tightness and also had some numbness in his right leg there was no motor weakness the numbness persisted he had woken up this morning and while taking his daughter to school and his he developed more chest pain and later in the day he had another episode and he presented to the emergency room. Hospital Course Hospital Course: She was admitted to a telemetry bed. He had just undergone a cardiac workup short of the stress test which showed he did have an underlying cardiomyopathy. His blood pressure was still elevated and lisinopril 10 mg was added to his current regimen. A nuclear stress test was scheduled and accomplished. Patient had no reversible ischemia. Imdur was added empirically and patient will follow-up with Dr. Hua. There is no other change in his medical regimen he was urged to use [id number] Pepcid for possible reflux or gastric irritation as a cause of his chest pain. Physical Exam Vital Signs: Temp Pulse Resp BP Pulse Ox 97.6 F 75 15 155/53 H 98 06/24/18 16:08 06/24/18 16:08 06/24/18 16:08 06/24/18 16:08 06/24/18 16:08 Intake & Output 06/23/18 06/24/18 06/25/18 06:59 06:59 06:59 Intake Total 236 250 Output Total 450 Balance -214 250 Weight 72.6 kg General appearance: PRESENT: no acute distress, well-developed, well-nourished Neck exam: ABSENT: carotid bruit, JVD, lymphadenopathy, thyromegaly Respiratory exam: PRESENT: accessory muscle use Cardiovascular exam: PRESENT: RRR. ABSENT: diastolic murmur, rubs, systolic murmur GI/Abdominal exam: PRESENT: normal bowel sounds, soft. ABSENT: distended, guarding, mass, organolmegaly, rebound, tenderness Extremities exam: PRESENT: full ROM. ABSENT: calf tenderness, clubbing, pedal edema Results Laboratory Results: 06/24/18 03:41 06/24/18 03:41 06/24/18 06/24/18 03:41 03:41 WBC 7.1 RBC 4.85 Hgb 14.7 Hct 42.2 MCV 87 MCH 30.2 MCHC 34.8 RDW 14.0 Plt Count 193 Seg Neutrophils % 58.3 Lymphocytes % 27.3 Monocytes % 11.4 Eosinophils % 2.0 Basophils % 1.0 Absolute Neutrophils 4.1 Absolute Lymphocytes 1.9 Absolute Monocytes 0.8 Absolute Eosinophils 0.1 Absolute Basophils 0.1 Sodium 140.0 Potassium 3.5 L Chloride 105 Carbon Dioxide 28 Anion Gap 7 BUN 23 H Creatinine 0.95 Est GFR ( Amer) > 60 Est GFR (Non-Af Amer) > 60 Glucose 119 H Calcium 9.3 Magnesium 1.7 06/23/18 06/24/18 06/24/18 21:45 03:41 10:05 Troponin I 0.015 0.018 < 0.012 NT-Pro-B Natriuret Pep 801 Impressions: Chest X-Ray 06/23/18 15:45 IMPRESSION: Mild cardiomegaly without evidence of acute cardiopulmonary disease. Qualifiers - * PATIENT BEING DISCHARGED WITH ANY OF THE FOLLOWING DIAGNOSIS: No Plan Time Spent: Greater than 30 Minutes
[2018-06-25] MEDS ORDERED: POTASSIUM CHLORIDE 10 MEQ CAPSULE.ER PO SCH (10:00)
== END 2018-06-24 17:22 | disposition home or self-care (01) ==
LOC: ER 14:36 → INTOOBSV 17:30 → EH 17:30 → 3S 19:40
PROVIDERS: ADMIT Internal Medicine; ATTEND Internal Medicine
DX: R07.89 Other chest pain (principal); I71.01 Dissection of thoracic aorta; I11.0 Hypertensive heart disease with heart failure; I50.40 Unspecified combined systolic (congestive) and diastolic (congestive) heart failure; E78.5 Hyperlipidemia, unspecified; M10.9 Gout, unspecified; E11.42 Type 2 diabetes mellitus with diabetic polyneuropathy; E66.9 Obesity, unspecified; I42.9 Cardiomyopathy, unspecified; Z79.899 Other long term (current) drug therapy; Z98.890 Other specified postprocedural states; Z82.49 Family history of ischemic heart disease and other diseases of the circulatory system; Z79.84 Long term (current) use of oral hypoglycemic drugs; Z87.39 Personal history of other diseases of the musculoskeletal system and connective tissue; Z86.73 Personal history of transient ischemic attack (TIA), and cerebral infarction without residual deficits
CPT/HCPCS: 93005 ×2; 99285; 36415 ×2; 82962 ×2; 83735; 84443; 85025 ×2; 80048; 80053; 81001; 84484 ×2; 83880; 93017; 71045; 78452; 93010 ×2; G0378 ×3; A9500; A9270 ×13; J2785; Q9969

== ENCOUNTER 2019-01-21 15:46 | Emergency (ER) | payer MEDICARE ==
[2019-01-21 16:16] VITALS: BP 175/79
[2019-01-21] MEDS ORDERED: DIPH/PERTUSS(ACELL)/TETANUS VAC/PF 0.5 ML SYR (>=10YO) IM ONE (16:56)
[2019-01-21] MEDS ORDERED: LIDOCAINE 1% INJ-PF (10 MG/ML) 30 ML SDV INJ ONE (16:56)
--- NOTE | 2019-01-21 16:59 | ER Document Report ---
ED Medical Screen (RME) - General Chief Complaint: Laceration Stated Complaint: LEFT HAND INJURY Time Seen by Provider: 01/21/19 16:52 TRAVEL OUTSIDE OF THE [place] IN LAST 30 DAYS: No - HPI Notes: 01/21/19 16:57 Patient is a 63-year-old male with a history of aortic dissection, hypertension, diabetes, CVA who presents complaining of a laceration to his thenar eminence left hand that occurred prior to arrival. Patient states that he cut his hand on a metallic object when he was working outside and goes to a light fixture. Patient states that he can still move his hand without difficulty otherwise. Last tetanus was between 5 and 7 years ago. No other concerns or complaints. Denies MOLINA, fever, neck pain, URI, CP, SOB, Abd pain, or rash. I have treated and performed a rapid initial assessment of this patient. A comprehensive ED assessment and evaluation of the patient, analysis of test results and completion of medical decision making process will be conducted by additional ED providers. PHYSICAL EXAMINATION: GENERAL: Well-appearing, well-nourished and in no acute distress. Answers questions appropriately. Left hand: FROM. Strength 5+/5. + 1.5cm superficial linear laceration noted. No obvious arterial bleed noted. N/V intact distal. - Related Data Allergies/Adverse Reactions: nitroglycerin Allergy (Verified 06/23/18 14:39) Past Medical History - Past Medical History Cardiac Medical History: Reports: Hx Hypercholesterolemia, Hx Hypertension Denies: Hx Atrial Fibrillation, Hx Heart Attack Pulmonary Medical History: Reports: Hx Intubation Denies: Hx COPD Neurological Medical History: Reports: Hx Cerebrovascular Accident - 2014 Endocrine Medical History: Reports: Hx Diabetes Mellitus Type 2 Renal/ Medical History: Denies: Hx Peritoneal Dialysis Musculoskeltal Medical History: Reports Hx Gout Skin Medical History: Denies Hx Eczema, Denies Hx Psoriasis Psychiatric Medical History: Denies: Hx Depression Past Surgical History: Reports: Hx Cardiac Surgery - valve repair, Hx Orthopedic Surgery - Back surgery, type unknown, Hx Vascular Surgery, Other - Aortic Arch dissection repair Physical Exam - Vital signs Vitals: Temp Pulse Resp BP Pulse Ox 98.5 F 84 18 175/79 H 97 01/21/19 16:15 01/21/19 16:15 01/21/19 16:15 01/21/19 16:15 01/21/19 16:15 Course - Vital Signs Vital signs: Temp Pulse Resp BP Pulse Ox 98.5 F 84 18 175/79 H 97 01/21/19 16:15 01/21/19 16:15 01/21/19 16:15 01/21/19 16:15 01/21/19 16:15
--- NOTE | 2019-01-21 17:29 | RADIOLOGY REPORT (SQ) ---
EXAM DESCRIPTION: HAND LEFT 2 VIEWS COMPLETED DATE/TIME: 01/21/2019 5:18 pm REASON FOR STUDY: laceration thenar eminence, r/o metallic fb COMPARISON: None. EXAM PARAMETERS: NUMBER OF VIEWS: Two view. TECHNIQUE: AP and lateral radiographic images acquired of the left hand. LIMITATIONS: None. FINDINGS: MINERALIZATION: Normal. BONES: No acute fracture or dislocation. No worrisome bone lesions. JOINTS: No effusions. SOFT TISSUES: No foreign body. OTHER: No other significant finding. IMPRESSION: No fracture or foreign body. TECHNICAL DOCUMENTATION: JOB ID: [id number] [employer]- All Rights Reserved Reading location - IP/workstation name: [email or web address]
== END 2019-01-21 21:34 | disposition home or self-care (01) ==
LOC: ER 15:46
DX: Z53.21 Procedure and treatment not carried out due to patient leaving prior to being seen by health care provider (principal); S61.412A Laceration without foreign body of left hand, initial encounter; W45.8XXA Other foreign body or object entering through skin, initial encounter; I10 Essential (primary) hypertension; E11.9 Type 2 diabetes mellitus without complications
CPT/HCPCS: 90471; 90715; 99281

== ENCOUNTER 2019-01-22 10:01 | Emergency (ER) | payer MEDICARE ==
--- NOTE | 2019-01-22 10:16 | ER Document Report ---
ED Medical Screen (RME) - General Chief Complaint: Hand Injury Stated Complaint: LEFT HAND INJURY Time Seen by Provider: 01/22/19 10:14 Mode of Arrival: Ambulatory Information source: Patient Notes: 63-year-old male presents to ED for complaint of laceration to his hand yesterday. He states he was put states into the ground when he slammed it into the ground with his hand. He states he waited 8 hours in the emergency room and had to leave yesterday before he could get sutures. He states he did get a tetanus shot yesterday. The wound is open and draining. I did reapply the dressing but he will need further care. Patient is alert oriented respirations regular and unlabored speaking in full sentences. I have greeted and performed a rapid initial assessment of this patient. A comp rehensive ED assessment and evaluation of the patient, analysis of test results and completion of medical decision making process will be conducted by an additional ED providers. Dictation of this chart was performed using voice recognition software; therefore, there may be some unintended grammatical errors. TRAVEL OUTSIDE OF THE [place] IN LAST 30 DAYS: No - Related Data Allergies/Adverse Reactions: nitroglycerin Allergy (Verified 01/22/19 10:05) Past Medical History - Past Medical History Cardiac Medical History: Reports: Hx Hypercholesterolemia, Hx Hypertension Denies: Hx Atrial Fibrillation, Hx Heart Attack Pulmonary Medical History: Reports: Hx Intubation Denies: Hx COPD Neurological Medical History: Reports: Hx Cerebrovascular Accident - 2014 Endocrine Medical History: Reports: Hx Diabetes Mellitus Type 2 Renal/ Medical History: Denies: Hx Peritoneal Dialysis Musculoskeltal Medical History: Reports Hx Gout Skin Medical History: Denies Hx Eczema, Denies Hx Psoriasis Psychiatric Medical History: Denies: Hx Depression Past Surgical History: Reports: Hx Cardiac Surgery - valve repair, Hx Orthopedic Surgery - Back surgery, type unknown, Hx Vascular Surgery, Other - Aortic Arch dissection repair Physical Exam - Vital signs Vitals: Temp Pulse Resp BP Pulse Ox 97.7 F 64 18 169/78 H 98 01/22/19 10:10 01/22/19 10:10 01/22/19 10:10 01/22/19 10:10 01/22/19 10:10 Course - Vital Signs Vital signs: Temp Pulse Resp BP Pulse Ox 97.7 F 64 18 169/78 H 98 01/22/19 10:10 01/22/19 10:10 01/22/19 10:10 01/22/19 10:10 01/22/19 10:10
[2019-01-22] MEDS ORDERED: LIDOCAINE 0.5%/EPINEPHRINE INJ 50 ML VIAL INJ ONE (10:53)
[2019-01-22] MEDS ORDERED: AMOXICILLIN TRIHYD 250 MG CAPSULE PO ONE (10:53)
[2019-01-22] MEDS ORDERED: AMOXICILLIN TR/POT CLAVULANATE 500-125 MG TAB PO ONE (10:53)
[2019-01-22] MEDS ORDERED: ACETAMINOPHEN 325 MG TABLET PO ONE (10:54)
--- NOTE | 2019-01-22 12:17 | ER Document Report ---
HPI - HPI Patient complains to provider of: Left hand laceration Time Seen by Provider: 01/22/19 10:14 Pain Level: 2 Context: Patient is a 63-year-old male presents to the emergency department for a laceration to his left hand. Patient states this laceration happened around 13 8 hours yesterday. States is on a piece of metal. States he presented to the emergency room but waited over 8 hours and was unable to get his laceration sutured. States he was given his tetanus immunization yesterday in the emergency room. Patient states he is on blood thinners but is unsure of the name of the medication he is on. - DERM Skin Color: Normal Past Medical History - General Information source: Patient - Social History Smoking Status: Former Smoker Family History: CAD, Hypertension Patient has suicidal ideation: No Patient has homicidal ideation: No - Past Medical History Cardiac Medical History: Reports: Hx Hypercholesterolemia, Hx Hypertension Denies: Hx Atrial Fibrillation, Hx Heart Attack Pulmonary Medical History: Reports: Hx Intubation Denies: Hx COPD Neurological Medical History: Reports: Hx Cerebrovascular Accident - 2014 Endocrine Medical History: Reports: Hx Diabetes Mellitus Type 2 Renal/ Medical History: Denies: Hx Peritoneal Dialysis Musculoskeletal Medical History: Reports Hx Gout Skin Medical History: Denies Hx Eczema, Denies Hx Psoriasis Psychiatric Medical History: Denies: Hx Depression Past Surgical History: Reports: Hx Cardiac Surgery - valve repair, Hx Orthopedic Surgery - Back surgery, type unknown, Hx Vascular Surgery, Other - Aortic Arch dissection repair Vertical Provider Document - CONSTITUTIONAL Agree With Documented VS: Yes Notes: GENERAL: Alert, interacts well. No acute distress. HEAD: Normocephalic, atraumatic. EYES: Pupils equal, round, and reactive to light. Extraocular movements intact. ENT: Oral mucosa moist, tongue midline. NECK: Full range of motion. Supple. Trachea midline. LUNGS: Clear to auscultation bilaterally, no wheezes, rales, or rhonchi. No respiratory distress. HEART: Regular rate and rhythm. No murmur ABDOMEN: Soft, non-tender. Non-distended. Bowel sounds present in all 4 quadrants. EXTREMITIES: Moves all 4 extremities spontaneously. No edema, normal radial and dorsalis pedis pulses bilaterally. No cyanosis. BACK: no cervical, thoracic, lumbar midline tenderness. No saddle anesthesia, normal distal neurovascular exam. NEUROLOGICAL: Alert and oriented x3. Normal speech. cranial nerves II through XII grossly intact PSYCH: Normal affect, normal mood. SKIN: Warm, dry, normal turgor. 3 cm laceration noted thenar eminence of left anterior hand. Full range of motion all fingers left hand capillary refill less than 2 seconds distally all 5 fingers left hand. - INFECTION CONTROL TRAVEL OUTSIDE OF THE [place] IN LAST 30 DAYS: No Course - Re-evaluation Re-evalutation: See procedure note for laceration repair, will place patient on prophylactic antibiotics due to extended length of open wound. Patient had minor intermittent bleeding upon initial examination of the wound. After numbed wound was cleaned extensively and was easily able to be bleeding. Bleeding stopped quickly with laceration repair. - Vital Signs Vital signs: Temp Pulse Resp BP Pulse Ox 97.7 F 64 18 169/78 H 98 01/22/19 10:10 01/22/19 10:10 01/22/19 10:10 01/22/19 10:10 01/22/19 10:10 Procedures - Laceration/Wound Repair Left hand Wound length (cm): 3 Wound's Depth, Shape: Superficial Laceration pre-procedure: Sterile PPE donned, Sterile drapes applied, Shur-Clens applied Anesthetic type: 1% Lidocaine Volume Anesthetic (mLs): 5 Wound explored: Clean, No foreign body removed Irrigated w/ Saline (mLs): 500 Wound Debrided: Extensive Wound Repaired With: Sutures Suture Size/Type: 4:0, Ethilon Number of Sutures: 4 Post-procedure wound care: Sterile dressing applied Post-procedure NV exam normal: Yes Complications: No Discharge - Discharge Clinical Impression: Laceration Condition: Stable Disposition: HOME, SELF-CARE Instructions: Laceration Care (OM), Prophylactic Antibiotic (OM), Tetanus Immunization Given ([facility]) Additional Instructions: As we discussed you have been seen and treated in the emergency department for a laceration to your left hand. Due to the timeframe with which you experience laceration in the time it took for us to suture the laceration I am putting you on oral antibiotics. Please make sure you take antibiotics as prescribed. The sutures need to be removed in the next 10-14 days. Please follow-up with your primary care provider for removal or return to the emergency room. Please also return to the emergency room for any other concerns. Prescriptions: Amox Tr/Potassium Clavulanate [Augmentin 875-125 Tablet] 1 tab PO BID 10 Days tablet
[2019-01-22 12:29] VITALS: BP 148/78
== END 2019-01-22 12:29 | disposition home or self-care (01) ==
LOC: ER 10:01
PROC: 0HQGXZZ Repair Left Hand Skin, External Approach (ICD-10-PCS; principal; 2019-01-22)
DX: S61.412A Laceration without foreign body of left hand, initial encounter (principal); W45.8XXA Other foreign body or object entering through skin, initial encounter; Z87.891 Personal history of nicotine dependence; I10 Essential (primary) hypertension; E11.9 Type 2 diabetes mellitus without complications
CPT/HCPCS: 99282; 12002; A9270 ×3; J3490

== ENCOUNTER 2019-04-03 07:36 | Observation (INO) | payer MEDICARE ==
[2019-04-03] MEDS ORDERED: ASPIRIN 81 MG TABLET, CHEWABLE PO ONE (07:41)
--- NOTE | 2019-04-03 08:22 | RADIOLOGY REPORT (SQ) ---
EXAM DESCRIPTION: CHEST SINGLE VIEW COMPLETED DATE/TIME: 04/03/2019 8:01 am REASON FOR STUDY: bed 12 cp COMPARISON: 06/23/2018. EXAM PARAMETERS: NUMBER OF VIEWS: One view. TECHNIQUE: Single frontal radiographic view of the chest acquired. RADIATION DOSE: NA LIMITATIONS: None. FINDINGS: LUNGS AND PLEURA: No opacities, masses or pneumothorax. No pleural effusion. MEDIASTINUM AND HILAR STRUCTURES: No masses. Contour normal. HEART AND VASCULAR STRUCTURES: Mild cardiomegaly. Normal vasculature. BONES: No acute findings. HARDWARE: Sternotomy wires and surgical clips. OTHER: No other significant finding. IMPRESSION: STABLE MILD CARDIOMEGALY. NO ACUTE RADIOGRAPHIC FINDING IN THE CHEST. TECHNICAL DOCUMENTATION: JOB ID: [id number] [employer]- All Rights Reserved Reading location - IP/workstation name: [email or web address]
[2019-04-03 09:02] LABS: ABSOLUTE BASOPHILS # (AUTO) 0.1 10^3/uL (0.0-0.2); ABSOLUTE EOSINOPHILS # (AUTO) 0.1 10^3/uL (0.0-0.6); ABSOLUTE LYMPHOCYTES (AUTO) 1.3 10^3/uL (0.5-4.7); ABSOLUTE MONOCYTES (AUTO) 0.5 10^3/uL (0.1-1.4); ABSOLUTE NEUT (AUTO) 4.1 10^3/uL (1.7-8.2); BASOPHILS % (AUTO) 0.9 % (0-2); EOSINOPHILS % (AUTO) 1.3 % (0-6); HEMATOCRIT 41.3 % (37.9-51.0); LYMPHOCYTES % (AUTO) 21.3 % (13-45); MEAN CORPUSCULAR HEMOGLOBIN 29.7 pg (27.0-33.4); MEAN CORPUSCULAR VOLUME 87 fl (80-97); PLATELET COUNT 177 10^3/uL (150-450); RED BLOOD COUNT 4.73 10^6/uL (4.35-5.55); SEGMENTED NEUTROPHILS % (AUTO) 68.5 % (42-78); TOTAL CELLS COUNTED % (AUTO) 100 %
[2019-04-03 09:26] LABS: ALBUMIN 4.3 g/dL (3.5-5.0); ALKALINE PHOSPHATASE 51 U/L (38-126); ANION GAP 9 (5-19); ASPARTATE AMINO TRANSFERASE 32 U/L (17-59); BILIRUBIN,DIRECT 0.4 mg/dL (0.0-0.4); BLOOD UREA NITROGEN 20 mg/dL (7-20); CALCIUM 9.7 mg/dL (8.4-10.2); CARBON DIOXIDE 29 mmol/L (22-30); CHLORIDE 101 mmol/L (98-107); CREATINE KINASE 57 U/L (55-170); GLUCOSE 205 mg/dL (75-110); POTASSIUM 4.7 mmol/L (3.6-5.0); TOTAL PROTEIN 7.3 g/dL (6.3-8.2)
--- NOTE | 2019-04-03 09:27 | EKG REPORT ---
SEVERITY:- ABNORMAL ECG - SINUS RHYTHM LEFT ANTERIOR FASCICULAR BLOCK ABNORMAL T, CONSIDER ISCHEMIA, LATERAL LEADS : Confirmed by: Mikayla Burciaga MD 03-Apr-2019 09:27:24
[2019-04-03 09:45] LABS: TROPONIN I < 0.012 ng/mL
--- NOTE | 2019-04-03 09:52 | ER Document Report ---
ED General - General Chief Complaint: Chest Pain Stated Complaint: CHEST PAIN Time Seen by Provider: 04/03/19 08:58 TRAVEL OUTSIDE OF THE [place] IN LAST 30 DAYS: No - HPI Notes: 63-year-old male to the emergency department with complaints of right leg pain for the past week and midsternal chest pain that began this morning at 3 AM. He states that his entire right leg is been bothering him and in the past he has had injections into his hip. He states however that he has pain down his right calf and has noticed swelling into the leg. He denies a history of DVT or recent travel. He states that he awoke this morning with this chest pain. He states that it is sharp. States he got up and took an aspirin and then went back to bed. States he awoke again at 5 AM with the same chest pain. He states that he got his and himself ready to go to [employer]. However he continued to have the chest pain on the way to [employer] and also noted some shortness of breath. He denies diaphoresis, nausea, vomiting. He states that he has been feeling dizzy. Patient has a significant cardiac history and that he had an aortic dissection in 1997. He also had several heart attacks after that. He does not think that he has any stents. He states that he also had a stroke which left him with expressive a aphasia. He admits to hypertension and cardiomyopathy. He also reports heart failure. He does take Plavix and he states that he is faithful on it. Denies any fevers or chills, abdominal pain, nausea, vomiting, diarrhea. He denies any worsening neurological symptoms. - Related Data Allergies/Adverse Reactions: nitroglycerin Allergy (Verified 04/03/19 07:37) Past Medical History - General Information source: Patient - Social History Smoking Status: Former Smoker Chew tobacco use (# tins/day): No Frequency of alcohol use: None Drug Abuse: None Family History: CAD, Hypertension Patient has suicidal ideation: No Patient has homicidal ideation: No - Past Medical History Cardiac Medical History: Reports: Hx Hypercholesterolemia, Hx Hypertension Denies: Hx Atrial Fibrillation, Hx Heart Attack Pulmonary Medical History: Reports: Hx Intubation Denies: Hx COPD Neurological Medical History: Reports: Hx Cerebrovascular Accident - 2014 Endocrine Medical History: Reports: Hx Diabetes Mellitus Type 2 Renal/ Medical History: Denies: Hx Peritoneal Dialysis Musculoskeletal Medical History: Reports Hx Gout Skin Medical History: Denies Hx Eczema, Denies Hx Psoriasis Psychiatric Medical History: Denies: Hx Depression Past Surgical History: Reports: Hx Cardiac Surgery - valve repair, Hx Orthopedic Surgery - Back surgery, type unknown, Hx Vascular Surgery, Other - Aortic Arch dissection repair Review of Systems - Review of Systems Constitutional: Malaise. denies: Chills, Fever EENT: No symptoms reported Cardiovascular: Chest pain, Palpitations, Dizziness, Edema - Right lower leg swelling. denies: Dyspnea, Syncope, Lightheaded Respiratory: Short of breath. denies: Cough, Hurts to breathe Gastrointestinal: denies: Abdominal pain, Diarrhea, Nausea, Vomiting Genitourinary: No symptoms reported Musculoskeletal: See HPI, Leg swelling Skin: No symptoms reported Neurological/Psychological: Other - Baseline and residual expressive aphasia from stroke -: Yes All other systems reviewed and negative Physical Exam - Vital signs Vitals: Temp Pulse Resp BP 97.6 F 75 18 192/80 H 04/03/19 07:49 04/03/19 07:49 04/03/19 07:49 04/03/19 07:49 Interpretation: Hypertensive - General General appearance: Appears well In distress: None - HEENT Head: Normocephalic Extraocular movements intact: Yes Pupils: PERRL Ears: Normal External canal: Normal Tympanic membrane: Normal Sinus: Normal Nasal: Normal Mouth/Lips: Normal Mucous membranes: Normal Pharynx: Normal Neck: Normal - Respiratory Respiratory status: No respiratory distress Chest status: Nontender Breath sounds: Normal Chest palpation: Normal - Cardiovascular Rhythm: Regular Heart sounds: Normal auscultation Murmur: No Notes: Noted healed surgical incision from aortic dissection repair - Abdominal Inspection: Normal Distension: No distension Bowel sounds: Normal Tenderness: Nontender Organomegaly: No organomegaly - Back Back: Normal - Extremities Calf: Tender - Positive tenderness to palpation over the posterior right calf with noted mild edema to the ankle. There is no palpable cords. There is no erythema, streaking lymphangitis. 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 Discussed patient with Dr. Sheridan, ER Attending. She agrees patient needs admittance because of his HEART score and chest pain. He has a negative CTA chest and his Duplex is also negative. He states that his chest pain is improved since aspirin. He has not had relief of his leg pain. Will give more pain meds. Noted second troponin. Rounded on patient and he agrees with plan for admission. Spoke with DUDLEY Jenkins on hospitalist team. She accepts patient and will come down to see patient. Impression: Chest pain, leg pain. HEART score of 4. Currently with negative trops times 2, EKG with no acute changes, CXR, CTA, duplex all reassuring. Patient admitted to the hospitalist service. - Vital Signs Vital signs: Temp Pulse Resp BP Pulse Ox 97.6 F 75 18 192/80 H 97 04/03/19 07:49 04/03/19 07:49 04/03/19 10:00 04/03/19 07:49 04/03/19 10:00 - Laboratory Result Diagrams: 04/03/19 08:40 04/03/19 08:40 Laboratory results interpreted by me: 04/03/19 04/03/19 08:40 09:44 Glucose 205 H Urine Glucose (UA) 50 H Urine Blood SMALL H - EKG Interpretation by Tn EKG shows normal: Sinus rhythm Rate: Normal Rhythm: NSR Additional EKG results interpreted by me: 04/03/19 No STEMI, left anterior fasicular block, lateral T wave abnormality. These finds are not new from prior on 06/24/2018 Discharge - Discharge Clinical Impression: Right leg pain Chest pain Qualifiers: Chest pain type: unspecified Qualified Code(s): R07.9 - Chest pain, unspecified Condition: Stable Disposition: ADMITTED INPATIENT Admitting Provider: DUDLEY Jenkins (hospitalist) Unit Admitted: Telemetry
[2019-04-03 09:58] LABS: APPEARANCE,URINE CLEAR; BILIRUBIN,URINE NEGATIVE (NEGATIVE); COLOR,URINE YELLOW; GLUCOSE, URINE 50 mg/dL (NEGATIVE); KETONES,URINE NEGATIVE (NEGATIVE); LEUKOCYTE ESTERASE,URINE NEGATIVE (NEGATIVE); NITRITE,URINE NEGATIVE (NEGATIVE); PROTEIN,URINE NEGATIVE (NEGATIVE); URINE SPECIFIC GRAVITY 1.013; UROBILINOGEN,URINE NEGATIVE mg/dL (<2.0)
--- NOTE | 2019-04-03 13:17 | RADIOLOGY REPORT (SQ) ---
EXAM DESCRIPTION: CTA CHEST COMPLETED DATE/TIME: 04/03/2019 12:49 pm REASON FOR STUDY: leg pain, chest pain COMPARISON: 06/12/2018 and 06/15/2018 TECHNIQUE: CT scan of the chest performed using helical scanning technique with dynamic intravenous contrast injection. Images reviewed with lung, soft tissue and bone windows. Reconstructed coronal and sagittal MPR images reviewed. Additional 3 dimensional post-processing performed to develop Maximal Intensity Projection images (WA P). All images stored on PACS. All CT scanners at this facility use dose modulation, iterative reconstruction, and/or weight based d osing when appropriate to reduce radiation dose to as low as reasonably achievable (ALARA). [facility]: Dose Right [facility]: CareDose [facility]: Dose Right [facility]: Teradose 4D [facility]: [employer] CONTRAST TYPE AND DOSE: contrast/concentration: Isovue 350.00 mg/ml; Total Contrast Delivered: 59.0 ml; Total Saline Delivered: 77.0 ml Contrast bolus adequate for pulmonary arteries and aorta. RENAL FUNCTION: GFR > 60. RADIATION DOSE: CT Rad equipment meets quality standard of care and radiation dose reduction techniq ues were employed. CTDIvol: 15.7 - 26.4 mGy. DLP: 555 mGy-cm. . LIMITATIONS: None. FINDINGS: LUNGS AND PLEURA: No pneumothorax. Similar small nodularity, largest measuring 5 mm in th e right lower lobe, image 80. No pleural effusions or pleural calcifications. AORTA AND GREAT VESSELS: Stable type A aneurysm -dissection, 3.7 cm greatest diameter. HEART: No pericardial effusion. Mild coronary artery calcifications. PULMONARY ARTERIES: No emboli visualized in the main pulmonary arteries or the segmental branches. HILAR AND MEDIASTINAL STRUCTURES: No bulky nodes. HARDWARE: Aortic root graft. Sternotomy. UPPER ABDOMEN: No acute findings. Limited exam. THYROID AND OTHER SOFT TISSUES: No masses. No adenopathy. BONES: No acute finding. 3D MIPS: Confirm above findings. OTHER: No other significant finding. IMPRESSION: No emboli visualized in the main pulmonary arteries or the segmental branches.Stable typ e A aortic aneurysm -dissection. COMMENT: Quality ID # [id number]: Final reports with documentation of one or more dose reduction techniques (e.g., Automated exposure control, adjustment of the mA and/or kV according to patient size, use of iterative reconstruction technique) TECHNICAL DOCUMENTATION: JOB ID: [id number] [place]-72 2010 [employer]- All Rights Reserved Reading location - IP/workstation name: [email or web address]
[2019-04-03] MEDS ORDERED: MORPHINE SULFATE 10 MG/ML INJ IV ONE (13:49)
[2019-04-03] MEDS ORDERED: ACETAMINOPHEN 325 MG TABLET PO PRN ×2 (14:08→15:27)
[2019-04-03] MEDS ORDERED: OXYCODONE HCL IR 5 MG TABLET PO PRN (14:12)
[2019-04-03] MEDS ORDERED: MORPHINE SULFATE 10 MG/ML INJ IV PRN (14:12)
--- NOTE | 2019-04-03 15:47 | XCELERA REPORT ---
[address] [place] [facility] [address] Lower Extremity Venous Evaluation Procedure: Color flow and duplex imaging of the veins of the right lower extremity as well as the left Common Femoral vein. Right Sided Venous Evaluation Normal vessel filling wall to wall, compression and augmentation as well as Colour flow down to the infrageniculate veins. Left Sided Venous Evaluation The left common femoral vein is fully compressible. Spontaneous and phasic flow is present in the left common femoral vein. Interpretation Summary No duplex evidence of DVT or obstruction in the right lower extremity nor in the left Common Femoral vein. Name: KATHY ROBLES, SR KING Age: 63 yrs Gender: Male : 1955 Patient Status: Inpatient Patient Location: [place] [id number]^A Study Date: 04/03/2019 01:39 PM Reason For Study: right calf pain, leg swelling Ordering Physician: [place] INGRAM Performed By: Benigno Kruse : [place] INGRAM > Kenny Miranda
[2019-04-03] MEDS ORDERED: HYDRALAZINE HCL INJ/PF 20 MG/1 ML SDV IV PRN (15:50)
[2019-04-03] MEDS ORDERED: ONDANSETRON HCL INJ/PF 4 MG/2 ML SDV IV ONE (16:10)
--- NOTE | 2019-04-03 16:13 | PDOC H&P ---
Addendum entered and electronically signed by KY STONER NP 04/03/19 16:29: Assessment & Plan - Diagnosis (1) Chest pain Qualifiers: Chest pain type: unspecified Qualified Code(s): R07.9 - Chest pain, unspecified Is this a current diagnosis for this admission?: Yes (2) Right leg pain Is this a current diagnosis for this admission?: Yes (3) Cardiomyopathy Qualifiers: Cardiomyopathy type: unspecified Qualified Code(s): I42.9 - Cardiomyopathy, unspecified Is this a current diagnosis for this admission?: Yes (4) Chronic dissection of thoracic aorta Is this a current diagnosis for this admission?: Yes (5) Diabetes mellitus type 2 in obese Is this a current diagnosis for this admission?: Yes (6) Dyslipidemia Is this a current diagnosis for this admission?: Yes Addendum entered and electronically signed by KY STONER NP 04/03/19 16:28: Assessment and Plan - Diagnosis (1) Chest pain Qualifiers: Chest pain type: unspecified Qualified Code(s): R07.9 - Chest pain, unspecified Is this a current diagnosis for this admission?: Yes Plan: Pain somewhat atypical for cardiac in origin. He reports previous heart attack after his first aortic dissection. CTA done today shows no acute findings. We will do serial troponins to rule out acute coronary syndrome. Patient had negative lexiscan stress test 6 months ago. (2) Right leg pain Is this a current diagnosis for this admission?: Yes (3) Cardiomyopathy Qualifiers: Cardiomyopathy type: unspecified Qualified Code(s): I42.9 - Cardiomyopathy, unspecified Is this a current diagnosis for this admission?: Yes (4) Chronic dissection of thoracic aorta Is this a current diagnosis for this admission?: Yes (5) Diabetes mellitus type 2 in obese Is this a current diagnosis for this admission?: Yes (6) Dyslipidemia Is this a current diagnosis for this admission?: Yes Original Note: History of Present Illness Admission Date/PCP: 04/03/19 13:55 JAMIL GE PA-C Patient complains of: Chest pain, shortness of breath and right hip pain History of Present Illness: KING CHAVEZ SR is a 63 year old male with past medical history of CAD, cardiomyopathy, CVA with expressive aphasia, diabetes, essential hypertension and dyslipidemia; who presents to [facility] emergency department with complaints of right leg pain for the past week and midsternal chest pain that began this morning at 3 AM. He states that he awoke this morning with this chest pain. He states that it is sharp, mostly midsternal and nonradiating. He states he got up and took an aspirin and then went back to bed. States he awoke again at 5 AM with the same chest pain. He states that he got his and himself ready to go to [facility]. However he continued to have the chest pain on the way to [facility] and also noted some shortness of breath. He denies diaphoresis, nausea, vomiting. He states that he has been feeling dizzy. Patient has a significant cardiac history and that he had an aortic dissection in 1997. He also had several heart attacks after that. He does not think that he has any stents. He states that he also had a stroke which left him with expressive a aphasia. He and his relocated here from [place] approximately 2 years ago. He has not seen a barrel lapper since he moved. Past Medical History Cardiac Medical History: Reports: Hyperlipidema, Hypertension Denies: Atrial Fibrillation, Myocardial Infarction Pulmonary Medical History: Denies: Chronic Obstructive Pulmonary Disease (COPD) EENT Medical History: Reports: None Neurological Medical History: Reports: None Endocrine Medical History: Reports: Diabetes Mellitus Type 2 Renal/ Medical History: Reports: None Malignancy Medical History: Reports: None GI Medical History: Reports: None Musculoskeltal Medical History: Reports: None, Gout Skin Medical History: Reports: None Denies: Eczema, Psoriasis Psychiatric Medical History: Reports: None Denies: Depression Traumatic Medical History: Reports: None Hematology: Reports: None Denies: Anemia, Bleeding Tendencies Infectious Medical History: Reports: None Past Surgical History Past Surgical History: Reports: Orthopedic Surgery - Back surgery, type unknown, Vascular Surgery, Other - Aortic Arch dissection repair Social History Information Source: Patient Smoking Status: Former Smoker Frequency of Alcohol Use: Rare Hx Recreational Drug Use: No Drugs: None Hx Prescription Drug Abuse: No - Advance Directive Resuscitation Status: Full Code Surrogate healthcare decision maker:: Family History Family History: CAD, Hypertension Parental Family History Reviewed: Yes Children Family History Reviewed: Yes Sibling(s) Family History Reviewed.: Yes Medication/Allergy Home Medications: Allopurinol [Zyloprim 100 mg Tablet] 100 mg PO BID #60 tablet 06/15/18 Atorvastatin Calcium [Lipitor 80 mg Tablet] 80 mg PO QHS #30 tablet 06/15/18 Clopidogrel Bisulfate [Plavix 75 mg Tablet] 75 mg PO DAILY #30 tablet 06/15/18 Digoxin [Lanoxin 0.125 mg Tablet] 0.125 mg PO DAILY #30 tablet 06/15/18 Furosemide 20 mg PO DAILY #30 tablet 06/15/18 Acetaminophen [Tylenol 325 mg Tablet] 650 mg PO Q6HP PRN 04/03/19 Carvedilol 12.5 mg PO Q12 04/03/19 Diclofenac Sodium [Voltaren] 2 gm TP TIDP PRN 04/03/19 Lisinopril [Prinivil 10 mg Tablet] 10 mg PO DAILY 04/03/19 Allergies/Adverse Reactions: nitroglycerin Allergy (Verified 04/03/19 07:37) Review of Systems Constitutional: ABSENT: chills, fever(s), headache(s), weight gain, weight loss Eyes: ABSENT: visual disturbances Ears: ABSENT: hearing changes Nose, Mouth, and Throat: PRESENT: as per HPI Cardiovascular: PRESENT: chest pain Respiratory: ABSENT: cough, hemoptysis Gastrointestinal: ABSENT: abdominal pain, constipation, diarrhea, hematemesis, hematochezia, nausea, vomiting Genitourinary: ABSENT: dysuria, hematuria Musculoskeletal: PRESENT: other - Right hip pain for the last week. Saw his PCP treated for possible gout with no improvement Integumentary: ABSENT: rash, wounds Neurological: ABSENT: abnormal gait, abnormal speech, confusion, dizziness, focal weakness, syncope Psychiatric: ABSENT: anxiety, depression, homidical ideation, suicidal ideation Endocrine: ABSENT: cold intolerance, heat intolerance, polydipsia, polyuria Hematologic/Lymphatic: ABSENT: easy bleeding, easy bruising Physical Exam Vital Signs: Temp Pulse Resp BP Pulse Ox 98 F 75 15 194/78 H 100 04/03/19 13:00 04/03/19 07:49 04/03/19 14:00 04/03/19 11:01 04/03/19 14:00 Intake & Output 04/02/19 04/03/19 04/04/19 06:59 06:59 06:59 Weight 79.379 kg General appearance: PRESENT: no acute distress, obese, well-developed, well- nourished Head exam: PRESENT: atraumatic, normocephalic Eye exam: PRESENT: conjunctiva pink, EOMI, PERRLA. ABSENT: scleral icterus Ear exam: PRESENT: normal external ear exam Mouth exam: PRESENT: moist, tongue midline Neck exam: ABSENT: carotid bruit, JVD, lymphadenopathy, thyromegaly Respiratory exam: PRESENT: clear to auscultation tone. ABSENT: rales, rhonchi, wheezes Cardiovascular exam: PRESENT: RRR. ABSENT: diastolic murmur, rubs, systolic murmur Pulses: PRESENT: normal dorsalis pedis pul Vascular exam: PRESENT: normal capillary refill GI/Abdominal exam: PRESENT: normal bowel sounds, soft. ABSENT: distended, guarding, mass, organolmegaly, rebound, tenderness Rectal exam: PRESENT: deferred Extremities exam: PRESENT: calf tenderness Musculoskeletal exam: PRESENT: ambulatory, full ROM, tenderness - right hip and thigh Neurological exam: PRESENT: alert, awake, oriented to person, oriented to time, oriented to situation, aphasic - expressive aphasia from previous CVA,, other - Right hand grasp 4/5 compared to left hand Psychiatric exam: PRESENT: appropriate affect, normal mood. ABSENT: homicidal ideation, suicidal ideation Results Laboratory Results: 04/03/19 08:40 04/03/19 08:40 04/03/19 04/03/19 04/03/19 08:40 08:40 09:44 WBC 6.0 RBC 4.73 Hgb 14.0 Hct 41.3 MCV 87 MCH 29.7 MCHC 34.0 RDW 14.0 Plt Count 177 Seg Neutrophils % 68.5 Lymphocytes % 21.3 Monocytes % 8.0 Eosinophils % 1.3 Basophils % 0.9 Absolute Neutrophils 4.1 Absolute Lymphocytes 1.3 Absolute Monocytes 0.5 Absolute Eosinophils 0.1 Absolute Basophils 0.1 Sodium 138.5 Potassium 4.7 Chloride 101 Carbon Dioxide 29 Anion Gap 9 BUN 20 Creatinine 0.86 Est GFR ( Amer) > 60 Est GFR (Non-Af Amer) > 60 Glucose 205 H Calcium 9.7 Total Bilirubin 1.0 AST 32 Alkaline Phosphatase 51 Total Protein 7.3 Albumin 4.3 Urine Color YELLOW Urine Appearance CLEAR Urine pH 5.0 Ur Specific [place] 1.013 Urine Protein NEGATIVE Urine Glucose (UA) 50 H Urine Ketones NEGATIVE Urine Blood SMALL H Urine Nitrite NEGATIVE Ur Leukocyte Esterase NEGATIVE Urine WBC (Auto) 0 Urine RBC (Auto) 1 04/03/19 04/03/19 04/03/19 08:40 08:40 12:19 Creatine Kinase 57 CK-MB (CK-2) 0.40 Troponin I < 0.012 < 0.012 Impressions: Chest X-Ray 04/03/19 07:41 IMPRESSION: STABLE MILD CARDIOMEGALY. NO ACUTE RADIOGRAPHIC FINDING IN THE CHEST. Chest/Abdomen CTA 04/03/19 11:44 IMPRESSION: No emboli visualized in the main pulmonary arteries or the segmental branches.Stable type A aortic aneurysm -dissection. Assessment and Plan - Diagnosis (1) Chest pain Qualifiers: Chest pain type: unspecified Qualified Code(s): R07.9 - Chest pain, unspecified Is this a current diagnosis for this admission?: Yes Plan: Pain somewhat atypical for cardiac in origin. He reports previous heart attack after his first aortic dissection. We will do serial troponins schedule patient for Lexiscan stress test due to heart score of 4. (2) Right leg pain Is this a current diagnosis for this admission?: Yes Plan: Likely secondary to arthritic process other than gout. PRN pain medication for now. We can check uric acid in the morning. (3) Cardiomyopathy Qualifiers: Cardiomyopathy type: unspecified Qualified Code(s): I42.9 - Cardiomyopathy, unspecified Is this a current diagnosis for this admission?: Yes Plan: Patient with EF of 40-45%, 2/4 diastolic dysfunction on last echo May, 2018. (4) Chronic dissection of thoracic aorta Is this a current diagnosis for this admission?: Yes Plan: Good blood pressure control. We will add as needed hydralazine. Blood pressure presently because of pain in his hip (5) Diabetes mellitus type 2 in obese Is this a current diagnosis for this admission?: Yes Plan: He states he has borderline diabetes mellitus type 2. He is on no medication. His glucose on arrival was 205. Will place on sliding scale for now. (6) Dyslipidemia Is this a current diagnosis for this admission?: Yes Plan: Continue statin. - Time Time Spent with patient: 25-34 minutes Total Critical Time (Minutes): 30 Medications reviewed and adjusted accordingly: Yes Anticipated discharge: Home Within: within 48 hours - Inpatient Certification Based on my medical assessment, after consideration of the patient's comorbidities, presenting symptoms, or acuity I expect that the services needed warrant INPATIENT care.: Yes I certify that my determination is in accordance with my understanding of Medicare's requirements for reasonable and necessary INPATIENT services [42 CFR 412.3e].: Yes Medical Necessity: Significant Comorbidiites Make Outpatient Treatment Too Risky
[2019-04-03] MEDS ORDERED: DEXTROSE 50%-WATER 25 GM/50 ML DISP.SYRIN IV PRN ×2 (17:53)
[2019-04-03] MEDS ORDERED: GLUCAGON,HUMAN RECOMB 1 MG INJ IM PRN (17:53)
[2019-04-03] MEDS ORDERED: DEXTROSE 40% GEL 15 GM TUBE PO PRN ×2 (17:53)
[2019-04-03] MEDS: ALLOPURINOL 100 MG TABLET PO SCH (18:07)
[2019-04-03] MEDS: CARVEDILOL 12.5 MG TABLET PO SCH (21:26)
[2019-04-03] MEDS ORDERED: ATORVASTATIN CALCIUM 80 MG TABLET PO SCH (22:00)
[2019-04-03] MEDS ORDERED: ATORVASTATIN CALCIUM 40 MG TABLET PO SCH (22:00)
[2019-04-04] MEDS ORDERED: INSULIN LISPRO 100 UNIT/ML 3 ML VIAL SUBCUT SCH (08:00)
[2019-04-04 08:15] VITALS: BP 147/53
[2019-04-04] MEDS ORDERED: ASPIRIN 81 MG TABLET, ENT COATED PO SCH (10:00)
[2019-04-04] MEDS ORDERED: LISINOPRIL 10 MG TABLET PO SCH (10:00)
[2019-04-04] MEDS ORDERED: FUROSEMIDE 20 MG TABLET PO SCH (10:00)
[2019-04-04] MEDS ORDERED: CLOPIDOGREL BISULFATE 75 MG TABLET PO SCH (10:00)
[2019-04-04] MEDS ORDERED: DIGOXIN 0.125 MG TABLET PO SCH (10:00)
[2019-04-04] MEDS: ALLOPURINOL 100 MG TABLET PO SCH (10:27)
[2019-04-04] MEDS: CARVEDILOL 12.5 MG TABLET PO SCH (10:28)
--- NOTE | 2019-04-04 14:57 | PDOC DISCHARGE SUMMARY ---
General - Admit/Disc Date/PCP Admission Date/Primary Care Provider: 04/03/19 13:55 JAMIL GE PA-C Discharge Date: 04/04/19 - Discharge Diagnosis (1) Chest pain Is this a current diagnosis for this admission?: Yes Summary: Patient's troponins x 4 were all negative. She had lexiscan stress test that was negative 6 months ago. Has had no further chest pain. No need to repeat stress test. He will follow up with his wardrobe mistress Dr Hua (2) Right leg pain Is this a current diagnosis for this admission?: Yes Summary: Pain is the full length of his leg. Uric acid normal. No swelling or deformity noted (3) Cardiomyopathy Is this a current diagnosis for this admission?: Yes (4) Chronic dissection of thoracic aorta Is this a current diagnosis for this admission?: Yes (5) Diabetes mellitus type 2 in obese Is this a current diagnosis for this admission?: Yes (6) Dyslipidemia Is this a current diagnosis for this admission?: Yes - Additional Information Resuscitation Status: Full Code Discharge Diet: Regular, Cardiac Discharge Activity: Activity As Tolerated Prescriptions: Oxycodone HCl [Oxy-Ir 5 mg Tablet] 5 mg PO Q6HP PRN #20 tablet PRN Reason: Allopurinol [Zyloprim 100 mg Tablet] 100 mg PO BID #60 tablet Home Medications: Atorvastatin Calcium [Lipitor 80 mg Tablet] 80 mg PO QHS #30 tablet 06/15/18 Clopidogrel Bisulfate [Plavix 75 mg Tablet] 75 mg PO DAILY #30 tablet 06/15/18 Digoxin [Lanoxin 0.125 mg Tablet] 0.125 mg PO DAILY #30 tablet 06/15/18 Furosemide 20 mg PO DAILY #30 tablet 06/15/18 Acetaminophen [Tylenol 325 mg Tablet] 650 mg PO Q6HP PRN 04/03/19 Carvedilol 12.5 mg PO Q12 04/03/19 Diclofenac Sodium [Voltaren] 2 gm TP TIDP PRN 04/03/19 Lisinopril [Prinivil 10 mg Tablet] 10 mg PO DAILY 04/03/19 Allopurinol [Zyloprim 100 mg Tablet] 100 mg PO BID #60 tablet 04/04/19 Oxycodone HCl [Oxy-Ir 5 mg Tablet] 5 mg PO Q6HP PRN #20 tablet 04/04/19 History of Present Illness Patient complains of: Chest pain and right lower leg pain History of Present Illness: KING CHAVEZ SR is a 63 year old male with past medical history of CAD, cardiomyopathy, CVA with expressive aphasia, diabetes, essential hypertension and dyslipidemia; who presents to [facility]'s emergency department with complaints of right leg pain for the past week and midsternal chest pain that began this morning at 3 AM. He states that he awoke this morning with this chest pain. He states that it is sharp, mostly midsternal and nonradiating. He states he got up and took an aspirin and then went back to bed. States he awoke again at 5 AM with the same chest pain. He states that he got his and himself ready to go to [facility]. However he continued to have the chest pain on the way to [facility] and also noted some shortness of breath. He denies diaphoresis, nausea, vomiting. He states that he has been feeling dizzy. Patient has a significant cardiac history and that he had an aortic dissection in 1997. He also had several heart attacks after that. He does not think that he has any stents. He states that he also had a stroke which left him with expressive a aphasia. He and his relocated here from [place] approximately 2 years ago. He has not seen a wardrobe mistress since he moved. Hospital Course Hospital Course: Patient was admitted to the hospitalist service on telemetry. He had serial troponins every 6 hours x 4 that were all less than 0.012. He had no recurrence of his chest pain. Right generalized leg pain was treated with oral oxycodone 5 mg with good relief. Venous duplex of the right leg was unremarkable. His uric acid done in the ER was negative. He had a Lexiscan stress test done 6 months ago we will not repeat this at this time. He can follow-up with his wardrobe mistress Dr. Hua. He will follow-up with his primary care provider as needed in the next 1 to 2 weeks. He was discharged home in good condition Physical Exam Vital Signs: Temp Pulse Resp BP Pulse Ox 97.8 F 67 16 147/53 H 98 04/04/19 08:12 04/04/19 08:12 04/04/19 08:12 04/04/19 08:12 04/04/19 08:12 Intake & Output 04/03/19 04/04/19 04/05/19 06:59 06:59 06:59 Intake Total 400 Output Total 525 Balance -125 Weight 79.3 kg General appearance: PRESENT: no acute distress, well-developed, well-nourished Head exam: PRESENT: atraumatic, normocephalic Eye exam: PRESENT: conjunctiva pink, EOMI, PERRLA. ABSENT: scleral icterus Ear exam: PRESENT: normal external ear exam Mouth exam: PRESENT: moist, tongue midline Neck exam: ABSENT: carotid bruit, JVD, lymphadenopathy, thyromegaly Respiratory exam: PRESENT: clear to auscultation tone. ABSENT: rales, rhonchi, wheezes Cardiovascular exam: PRESENT: RRR. ABSENT: diastolic murmur, rubs, systolic murmur Pulses: PRESENT: normal dorsalis pedis pul Vascular exam: PRESENT: normal capillary refill GI/Abdominal exam: PRESENT: normal bowel sounds, soft. ABSENT: distended, guarding, mass, organolmegaly, rebound, tenderness Rectal exam: PRESENT: deferred Extremities exam: PRESENT: full ROM. ABSENT: calf tenderness, clubbing, pedal edema Musculoskeletal exam: PRESENT: ambulatory, full ROM, tenderness - Right lower leg hip Neurological exam: PRESENT: alert, awake, oriented to person, oriented to place, oriented to time, oriented to situation, CN II-XII grossly intact, motor sensory deficit - He has mild expressive aphasia from previous CVA. Right hand grasp is 4/5 in strength compared to left 5/5, other Psychiatric exam: PRESENT: appropriate affect, normal mood. ABSENT: homicidal ideation, suicidal ideation Skin exam: PRESENT: dry, intact, warm. ABSENT: cyanosis, rash Results Laboratory Results: 04/03/19 08:40 04/03/19 08:40 04/03/19 09:44 Urine Color YELLOW Urine Appearance CLEAR Urine pH 5.0 Ur Specific [place] 1.013 Urine Protein NEGATIVE Urine Glucose (UA) 50 H Urine Ketones NEGATIVE Urine Blood SMALL H Urine Nitrite NEGATIVE Ur Leukocyte Esterase NEGATIVE Urine WBC (Auto) 0 Urine RBC (Auto) 1 04/03/19 04/03/19 04/03/19 08:40 08:40 12:19 Creatine Kinase 57 CK-MB (CK-2) 0.40 Troponin I < 0.012 < 0.012 04/03/19 04/04/19 18:00 02:13 Creatine Kinase CK-MB (CK-2) Troponin I < 0.012 < 0.012 Impressions: Chest X-Ray 04/03/19 07:41 IMPRESSION: STABLE MILD CARDIOMEGALY. NO ACUTE RADIOGRAPHIC FINDING IN THE CHEST. Chest/Abdomen CTA 04/03/19 11:44 IMPRESSION: No emboli visualized in the main pulmonary arteries or the segmental branches.Stable type A aortic aneurysm -dissection. Qualifiers - * PATIENT BEING DISCHARGED WITH ANY OF THE FOLLOWING DIAGNOSIS: No Acute Heart Failure - Is this a Heart Failure Patient?: No Plan Discharge Plan: Home with family. Follow up with cardiology. Follow up with primary care provider in 1-2 weeks Time Spent: Less than 30 Minutes
== END 2019-04-04 10:50 | disposition home or self-care (01) ==
LOC: ER 07:36 → INTOOBSV 13:55 → EH 13:55 → 3S 18:57
PROVIDERS: ADMIT Internal Medicine; ATTEND Internal Medicine
DX: R07.89 Other chest pain (principal); M79.604 Pain in right leg; I42.9 Cardiomyopathy, unspecified; I71.01 Dissection of thoracic aorta; E11.9 Type 2 diabetes mellitus without complications; E66.9 Obesity, unspecified; E78.5 Hyperlipidemia, unspecified; I69.320 Aphasia following cerebral infarction; R06.02 Shortness of breath; M10.9 Gout, unspecified; I25.2 Old myocardial infarction; I11.0 Hypertensive heart disease with heart failure; I50.9 Heart failure, unspecified; R00.2 Palpitations; Z79.899 Other long term (current) drug therapy; Z79.02 Long term (current) use of antithrombotics/antiplatelets; Z98.890 Other specified postprocedural states; Z82.49 Family history of ischemic heart disease and other diseases of the circulatory system; Z87.891 Personal history of nicotine dependence
CPT/HCPCS: 93005; 99285; 36415 ×2; 82553; 82962; 82550; 85025; 80053; 81001; 84484 ×2; 93971 ×2; 71045; 71275; 93010; G0378 ×3; A9270 ×13; J0360; J2270; J3490 ×2; J2405

== ENCOUNTER 2019-09-13 05:47 | Emergency (ER) | payer MEDICARE, OTHER ==
--- NOTE | 2019-09-13 06:45 | ER Document Report ---
ED General - General Chief Complaint: Shoulder Pain Stated Complaint: LEFT SHOULDER PAIN Time Seen by Provider: 09/13/19 06:43 Primary Care Provider: JAMIL GE PA-C [Primary Care Provider] - Follow up as needed Notes: 64-year-old male presents the emergency department complaining of sharp stabbing pain in his left shoulder starting yesterday that has since begun to radiate down to his fingers and to the left side of his chest. He denies any numbness or tingling with this, states it temporarily improved with warm compresses but then came back and was worse. Denies any nausea or shortness of breath. Denies any injury. Admits a history of aortic dissection in the early that was repaired. Patient is concerned that this may be related to an aortic dissection or to his heart. TRAVEL OUTSIDE OF THE [place] IN LAST 30 DAYS: No - Related Data Allergies/Adverse Reactions: nitroglycerin Allergy (Verified 04/03/19 07:37) Home Medications: digoxin. lasix. lipitor. plavix. voltaren. tylenol. lisinopril. carvedilol. allopurinol Past Medical History - General Information source: Patient - Social History Smoking Status: Former Smoker Frequency of alcohol use: Rare Drug Abuse: None Family History: CAD - Father and brother both from heart attacks in their 50s, Hypertension Patient has suicidal ideation: No Patient has homicidal ideation: No - Past Medical History Cardiac Medical History: Reports: Hx Hypercholesterolemia, Hx Hypertension Denies: Hx Atrial Fibrillation, Hx Heart Attack Pulmonary Medical History: Reports: Hx Intubation Denies: Hx COPD Neurological Medical History: Reports: Hx Cerebrovascular Accident - 2014 Endocrine Medical History: Reports: Hx Diabetes Mellitus Type 2 Renal/ Medical History: Denies: Hx Peritoneal Dialysis Musculoskeletal Medical History: Reports Hx Gout Skin Medical History: Denies Hx Eczema, Denies Hx Psoriasis Psychiatric Medical History: Denies: Hx Depression Past Surgical History: Reports: Hx Cardiac Surgery - valve repair, Hx Orthopedic Surgery - Back surgery, type unknown, Hx Vascular Surgery, Other - Aortic Arch dissection repair Review of Systems - Review of Systems Constitutional: No symptoms reported Cardiovascular: See HPI Respiratory: No symptoms reported Musculoskeletal: See HPI -: Yes All other systems reviewed and negative Physical Exam - Vital signs Vitals: Temp Pulse Resp BP Pulse Ox 97.5 F 72 19 185/74 H 99 09/13/19 05:55 09/13/19 05:55 09/13/19 05:55 09/13/19 05:55 09/13/19 05:55 Interpretation: Hypertensive - Notes Notes: GENERAL: Alert, interacts well. Shaking, appears quite anxious. HEAD: Normocephalic, atraumatic EYES: Pupils equal, round and reactive to light, extraocular movements intact. ENT: Oral mucosa moist, tongue midline. NECK: Full range of motion, supple, trachea midline. LUNGS: Clear to auscultation bilaterally, no wheezes, rales or rhonchi, no respiratory distress. HEART: Regular rate and rhythm, 3 out of 6 systolic murmur, no gallops or rubs. ABDOMEN: Soft, nontender, nondistended, bowel sounds present in all 4 quadrants. EXTREMITIES: Moves all 4 extremities spontaneously but has pain with movement of his left shoulder. Left shoulder is tender to palpation, no edema, no erythema, no crepitus, able to move his left shoulder through full range of motion but winces and complains of pain with every movement of his left shoulder. When distracted and I palpate his left shoulder he does not have any pain, when he notices I am palpating his left shoulder he begins to have pain again, no edema, radial and dorsalis pedis pulses 2/4 bilaterally. No cyanosis. NEUROLOGICAL: Alert and oriented x3, normal speech, no facial droop. PSYCH: Normal mood, normal affect. SKIN: Warm, Dry, normal turgor, no rashes or lesions noted. Course - Re-evaluation Re-evalutation: 09/13/19 11:36 I was concerned about the possibility of aortic dissection in this patient who already has a history of aortic dissection that was previously repaired. CT angiogram of the chest was ordered and it does not reveal any evidence of worse shabana aortic dissection, the prior dissection is stable. CBC unremarkable, CMP shows elevated glucose but otherwise unremarkable, initial troponin was detectable at 0.016, repeat troponin was completely undetectable, chest and shoulder x-rays show evidence of arthritis of the shoulder joint and and colitis of the thoracic spine. This would help to explain the pain the patient is having in his left shoulder, pain has slightly decreased with muscle relaxers. EKG is nonischemic. Patient is discharged home with encouragement to follow-up with orthopedic surgery as an outpatient for further work-up and treatment of his left shoulder pain. - Vital Signs Vital signs: Temp Pulse Resp BP Pulse Ox 97.5 F 72 20 168/80 H 98 09/13/19 05:55 09/13/19 05:55 09/13/19 11:01 09/13/19 11:01 09/13/19 11:01 - Laboratory Result Diagrams: 09/13/19 07:00 09/13/19 07:00 Laboratory results interpreted by me: 09/13/19 09/13/19 07:00 07:00 RDW 14.4 H Carbon Dioxide 32 H Glucose 150 H - EKG Interpretation by Me Additional EKG results interpreted by me: 09/13/19 06:45 EKG shows sinus rhythm at a rate of 66, left anterior hemiblock, first-degree AV block, poor R wave progression, slight ST segment elevation in V2, no reciprocal changes, no contiguous elevation, T wave inversion in aVL L, biphasic T wave in V2 per my interpretation. Discharge - Discharge Clinical Impression: Chronic dissection of thoracic aorta Left shoulder pain Qualifiers: Chronicity: acute Qualified Code(s): M25.512 - Pain in left shoulder Condition: Stable Disposition: HOME, SELF-CARE Additional Instructions: You appear to have arthritis and some injury to the rotator cuff of your left shoulder. Today's pain does not appear to be coming from your heart or your aortic dissection. The work-up for heart attack or worsening dissection did not show any problems. It shows that your dissection is unchanged. Please do gentle stretching exercises with your left shoulder every day. Please do not do heavy lifting with your left shoulder. There is evidence of arthritis in your left shoulder as well as problems with your rotator cuff though we do not see a tear in your rotator cuff. Please follow-up with your primary care physician as an outpatient and please consider following up with orthopedic surgery as an outpatient. You may take ibuprofen 600 mg every 8 hours as needed for pain for the next 2 to 3 days, you may take acetaminophen 1000 mg every 6 hours as needed for pain over the next 5 to 6 days. I have also prescribed you Robaxin, this is a muscle relaxer and you may take it as directed for pain. Please return for weakness in the left arm, numbness or any new or concerning symptoms. Prescriptions: Methocarbamol [Robaxin 750 mg Tablet] 750 mg PO ASDIR PRN #40 tablet PRN Reason: Referrals: MISTY STREET MD [ACTIVE STAFF] - Follow up as needed
[2019-09-13] MEDS ORDERED: METHOCARBAMOL 750 MG TABLET PO ONE (07:06)
[2019-09-13 07:17] LABS: ABSOLUTE BASOPHILS # (AUTO) 0.1 10^3/uL (0.0-0.2); ABSOLUTE EOSINOPHILS # (AUTO) 0.2 10^3/uL (0.0-0.6); ABSOLUTE LYMPHOCYTES (AUTO) 1.6 10^3/uL (0.5-4.7); ABSOLUTE MONOCYTES (AUTO) 0.8 10^3/uL (0.1-1.4); ABSOLUTE NEUT (AUTO) 5.8 10^3/uL (1.7-8.2); BASOPHILS % (AUTO) 0.7 % (0-2); EOSINOPHILS % (AUTO) 1.9 % (0-6); HEMATOCRIT 43.2 % (37.9-51.0); HEMOGLOBIN 14.8 g/dL (13.5-17.0); MEAN CORPUSCULAR HEMOGLOBIN 30.2 pg (27.0-33.4); MEAN CORPUSCULAR HGB CONC 34.2 g/dL (32.0-36.0); MEAN CORPUSCULAR VOLUME 88 fl (80-97); MONOCYTES % (AUTO) 9.7 % (3-13); PLATELET COUNT 181 10^3/uL (150-450); RED BLOOD COUNT 4.89 10^6/uL (4.35-5.55); RED CELL DISTRIBUTION WIDTH 14.4 % (11.5-14.0); SEGMENTED NEUTROPHILS % (AUTO) 68.7 % (42-78); TOTAL CELLS COUNTED % (AUTO) 100 %; WHITE BLOOD COUNT 8.5 10^3/uL (4.0-10.5)
[2019-09-13 07:35] LABS: ALBUMIN 4.1 g/dL (3.5-5.0); ALKALINE PHOSPHATASE 63 U/L (38-126); ANION GAP 9 (5-19); ASPARTATE AMINO TRANSFERASE 20 U/L (17-59); BILIRUBIN,DIRECT 0.2 mg/dL (0.0-0.4); BILIRUBIN,TOTAL 0.9 mg/dL (0.2-1.3); BLOOD UREA NITROGEN 19 mg/dL (7-20); CALCIUM 9.6 mg/dL (8.4-10.2); CARBON DIOXIDE 32 mmol/L (22-30); CHLORIDE 100 mmol/L (98-107); CREATINE KINASE 64 U/L (55-170); GLUCOSE 150 mg/dL (75-110); POTASSIUM 4.1 mmol/L (3.6-5.0); TOTAL PROTEIN 7.2 g/dL (6.3-8.2)
[2019-09-13 07:47] LABS: CREATINE KINASE MB 0.87 ng/mL (<4.55); TROPONIN I 0.016 ng/mL
--- NOTE | 2019-09-13 08:33 | RADIOLOGY REPORT (SQ) ---
EXAM DESCRIPTION: CTA CHEST COMPLETED DATE/TIME: 09/13/2019 8:08 am REASON FOR STUDY: left chest+shoulder pain, tearing, h/o dissection COMPARISON: 04/03/2019 TECHNIQUE: CT scan of the chest performed using helical scanning technique with dynamic intravenous contrast injection. Images reviewed with lung, soft tissue and bone windows. Reconstructed coronal and sagittal MPR images reviewed. Additional 3 dimensional post-processing performed to develop Maximal Intensity Projection images (NM P). All images stored on PACS. All CT scanners at this facility use dose modulation, iterative reconstruction, and/or weight based d osing when appropriate to reduce radiation dose to as low as reasonably achievable (ALARA). [facility]: Dose Right [facility]: CareDose [facility]: Dose Right [facility]: Teradose 4D [facility]: Trunk Show CONTRAST TYPE AND DOSE: contrast/concentration: Isovue 350.00 mg/ml; Total Contrast Delivered: 59.0 ml; Total Saline Delivered: 70.0 ml RENAL FUNCTION: GFR > 60. RADIATION DOSE: CT Rad equipment meets quality standard of care and radiation dose reduction techniq ues were employed. CTDIvol: 13.2 - 17.7 mGy. DLP: 618 mGy-cm. . LIMITATIONS: None. FINDINGS: LUNGS AND PLEURA: No masses, infiltrates, or pneumothorax. No pleural effusions or pleura l calcifications. AORTA AND GREAT VESSELS: Stable appearance of type A arch and descending thoracic aortic dissection a nd aneurysm, maximum caliber of the descending aorta 4.2 x 3.8 cm. There is very little contrast opa cification of the false lumen. HEART: No pericardial effusion. No significant coronary artery calcifications. PULMONARY ARTERIES: No emboli visualized in the main pulmonary arteries or the segmental branches. HILAR AND MEDIASTINAL STRUCTURES: No identified masses or abnormal nodes. HARDWARE: None in the chest. UPPER ABDOMEN: No significant findings. Limited exam. THYROID AND OTHER SOFT TISSUES: No masses. No adenopathy. BONES: Ankylosis of the thoracic spine. 3D MIPS: Confirm above findings. OTHER: No other significant finding. IMPRESSION: 1. Negative examination for pulmonary embolism. 2. Stable type A dissection of the aortic arch and descending thoracic aorta, maximum caliber of the descending aorta 4.2 x 3.8 cm. 3. 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 COMMENT: Quality ID # [id number]: Final reports with documentation of one or more dose reduction techniques (e.g., Automated exposure control, adjustment of the mA and/or kV according to patient size, use of iterative reconstruction technique) TECHNICAL DOCUMENTATION: JOB ID: [id number] [facility]- All Rights Reserved Reading location - IP/workstation name: [email or web address]
--- NOTE | 2019-09-13 08:39 | RADIOLOGY REPORT (SQ) ---
EXAM DESCRIPTION: SHOULDER LEFT 2 OR MORE VIEWS COMPLETED DATE/TIME: 09/13/2019 7:26 am REASON FOR STUDY: pain COMPARISON: None. NUMBER OF VIEWS: Three views. TECHNIQUE: Internal rotation, external rotation, and Y view images acquired of the left shoulder. LIMITATIONS: None. FINDINGS: MINERALIZATION: Normal. BONES: No acute fracture. No worrisome bone lesions. JOINTS: Normal glenohumeral joint alignment. Acromioclavicular joint osteoarthritis with subcortical cysts distal clavicle. VISUALIZED LUNGS AND RIBS: No pneumothorax. No rib fracture. SOFT TISSUES: Calcific tendinopathy along the posterior edge of the infraspinatus tendon. Sub acromi al space well maintained. OTHER: No other significant finding. IMPRESSION: Evidence of rotator cuff tendinopathy along the infraspinatus. Acromioclavicular joint osteoarthritis TECHNICAL DOCUMENTATION: JOB ID: [id number] [facility]- All Rights Reserved Reading location - IP/workstation name: [email or web address]
--- NOTE | 2019-09-13 08:46 | RADIOLOGY REPORT (SQ) ---
EXAM DESCRIPTION: CHEST 2 VIEWS COMPLETED DATE/TIME: 09/13/2019 7:26 am REASON FOR STUDY: chest pain Known chronic thoracic and abdominal aortic dissection COMPARISON: None. EXAM PARAMETERS: NUMBER OF VIEWS: two views TECHNIQUE: Digital Frontal and Lateral radiographic views of the chest acquired. RADIATION DOSE: NA LIMITATIONS: none FINDINGS: LUNGS AND PLEURA: No opacities, masses or pneumothorax. No pleural effusion. MEDIASTINUM AND HILAR STRUCTURES: No masses or contour abnormalities. HEART AND VASCULAR STRUCTURES: No cardiomegaly. Mildly tortuous thoracic aorta, stable. Old sternot sunita for treatment of ascending thoracic aortic dissection BONES: Old right rib thoracotomy defect. Diffuse ankylosis thoracic spine from ankylosing spondyliti s or seronegative spondyloarthropathy HARDWARE: Old sternotomy for repair of ascending aortic dissection OTHER: No other significant finding. IMPRESSION: Stable tortuous thoracic aorta, post prior sternotomy for treatment of ascending thoraci c aortic dissection No acute infiltrates or pleural effusions. No cardiomegaly Diffuse ankylosis thoracic spine TECHNICAL DOCUMENTATION: JOB ID: [id number] [employer]- All Rights Reserved Reading location - IP/workstation name: [email or web address]
--- NOTE | 2019-09-13 11:24 | EKG REPORT ---
SEVERITY:- ABNORMAL ECG - SINUS RHYTHM LEFT ANTERIOR FASCICULAR BLOCK PROBABLE LEFT VENTRICULAR HYPERTROPHY : Confirmed by: Mikayla Burciaga MD 13-Sep-2019 11:23:47
[2019-09-13 12:08] VITALS: BP 174/84
== END 2019-09-13 12:15 | disposition home or self-care (01) ==
LOC: ER 05:47
DX: M19.012 Primary osteoarthritis, left shoulder (principal); I71.01 Dissection of thoracic aorta; M25.512 Pain in left shoulder; I44.0 Atrioventricular block, first degree; I10 Essential (primary) hypertension; E11.9 Type 2 diabetes mellitus without complications; M10.9 Gout, unspecified; E78.00 Pure hypercholesterolemia, unspecified; Z79.899 Other long term (current) drug therapy; Z79.02 Long term (current) use of antithrombotics/antiplatelets; Z87.891 Personal history of nicotine dependence; Z86.73 Personal history of transient ischemic attack (TIA), and cerebral infarction without residual deficits; Z88.8 Allergy status to other drugs, medicaments and biological substances; Z82.49 Family history of ischemic heart disease and other diseases of the circulatory system
CPT/HCPCS: 93005; 99284; 36415; 82553; 82550; 85025; 80053; 84484; 71046; 73030; 71275; 93010; A9270; J3490

== ENCOUNTER 2020-03-01 05:58 | Emergency (ER) | payer MEDICARE, MEDICAID, OTHER ==
[2020-03-01 08:44] LABS: ABSOLUTE EOSINOPHILS # (AUTO) 0.1 10^3/uL (0.0-0.6); ABSOLUTE MONOCYTES (AUTO) 0.7 10^3/uL (0.1-1.4); ABSOLUTE NEUT (AUTO) 5.6 10^3/uL (1.7-8.2); BASOPHILS % (AUTO) 0.6 % (0-2); EOSINOPHILS % (AUTO) 0.9 % (0-6); HEMOGLOBIN 13.9 g/dL (13.5-17.0); LYMPHOCYTES % (AUTO) 13.5 % (13-45); MEAN CORPUSCULAR HEMOGLOBIN 31.1 pg (27.0-33.4); MEAN CORPUSCULAR HGB CONC 34.7 g/dL (32.0-36.0); MEAN CORPUSCULAR VOLUME 90 fl (80-97); MONOCYTES % (AUTO) 9.9 % (3-13); PLATELET COUNT 347 10^3/uL (150-450); RED BLOOD COUNT 4.46 10^6/uL (4.35-5.55); RED CELL DISTRIBUTION WIDTH 13.9 % (11.5-14.0); SEGMENTED NEUTROPHILS % (AUTO) 75.1 % (42-78); TOTAL CELLS COUNTED % (AUTO) 100 %; WHITE BLOOD COUNT 7.4 10^3/uL (4.0-10.5)
--- NOTE | 2020-03-01 08:45 | ER Document Report ---
ED General - General Chief Complaint: Flank Pain Stated Complaint: FLANK PAIN/CHEST PAIN Time Seen by Provider: 03/01/20 08:18 Primary Care Provider: JAMIL GE PA-C [Primary Care Provider] - Follow up as needed Notes: 64-year-old male with a past medical history of hypertension, cardiomyopathy, congestive heart failure, history of stroke, abdominal aortic aneurysm and L5 discectomy presenting today with bilateral flank pain that started approximately on Thursday. States that the pain is sharp intermittent and this morning it became more severe. States that the pain radiates from his back down the sides of his abdomen into his groin region. Denies any pain in his testes. Denies any gross hematuria or pain with urination. States that this morning he had sharp pain in his chest but has since resolved. States he has had a history of kidney stones many years ago. States that it passed spontaneously. He has not taken any pain medication for this. Denies any nausea, vomiting, fevers, chills or additional symptoms. TRAVEL OUTSIDE OF THE [place] IN LAST 30 DAYS: No - Related Data Allergies/Adverse Reactions: nitroglycerin Allergy (Verified 04/03/19 07:37) Past Medical History - Social History Smoking Status: Never Smoker Chew tobacco use (# tins/day): No Frequency of alcohol use: None Drug Abuse: None Family History: CAD - Father and brother both from heart attacks in their 50s, Hypertension - Past Medical History Cardiac Medical History: Reports: Hx Heart Attack, Hx Hypercholesterolemia, Hx Hypertension Denies: Hx Atrial Fibrillation Pulmonary Medical History: Reports: Hx Intubation Denies: Hx COPD Neurological Medical History: Reports: Hx Cerebrovascular Accident - 2014 Endocrine Medical History: Reports: Hx Diabetes Mellitus Type 2 Renal/ Medical History: Denies: Hx Peritoneal Dialysis Musculoskeletal Medical History: Reports Hx Gout Skin Medical History: Denies Hx Eczema, Denies Hx Psoriasis Psychiatric Medical History: Denies: Hx Depression Past Surgical History: Reports: Hx Cardiac Surgery - valve repair, Hx Orthopedic Surgery - Back surgery, type unknown, Hx Vascular Surgery, Other - Aortic Arch dissection repair Physical Exam - Vital signs Vitals: Temp Pulse Resp BP Pulse Ox 97.6 F 84 16 168/81 H 99 03/01/20 06:09 03/01/20 06:09 03/01/20 06:09 03/01/20 06:09 03/01/20 06:09 Course - Re-evaluation Re-evalutation: 03/01/20 10:21 Patient was reevaluated. States he is no longer in pain after receiving the [place]. States he has had no chest pain. His CT scan showed no aneurysm, no masses but did show some gallstones in the right upper quadrant. Also showed an enlarged prostate. The patient is afebrile at this time. Lipase is unremarkable. EKG is sinus at a rate of [address] segment elevations or depressions. Has no pain with sitting down. RUQ shows gallstones, no infection. Urinalysis also showed some blood in his urine. Review of his past urinalysis shows that this has been a consistent finding. I discussed with patient that he will need to follow-up with his primary care provider for evaluation of this. Heart score is 3 based on age and history. I discussed with patient that I do not have a clear etiology of his flank pain. I do not suspect that it is cardiac in nature. Based on his prior medical history I discussed this patient with Dr. Castellon who agrees that if the patient has close follow-up with cardiology and primary care that it is okay to discharge patient and he will not need admission for cardiac work-up. I discussed at length the findings of our evaluation in the emergency department and the importance of appropriate follow up. Patient can return to the emergency department for worsening symptoms and development of new symptoms. Patient agrees with the plan and he states that he has a follow-up appointment with his excellence leader later this month and that he will schedule an appointment with his primary care as well. Is also eager to leave the emergency department as his has an appointment at 1 PM - Vital Signs Vital signs: Temp Pulse Resp BP Pulse Ox 98.4 F 80 16 150/69 H 100 03/01/20 12:36 03/01/20 12:36 03/01/20 12:36 03/01/20 12:36 03/01/20 12:36 - Laboratory Result Diagrams: 03/01/20 08:19 03/01/20 08:19 Laboratory results interpreted by me: 03/01/20 03/01/20 08:19 08:29 Sodium 135.6 L Glucose 134 H Urine Blood MODERATE H Urine Urobilinogen 4.0 H Discharge - Discharge Clinical Impression: Flank pain Chest pain Qualifiers: Chest pain type: unspecified Qualified Code(s): R07.9 - Chest pain, unspecified Condition: Stable Disposition: HOME, SELF-CARE Instructions: Flank Pain ([facility]) Additional Instructions: Your physical exam, labs and imaging has been unremarkable. Please follow-up with your excellence leader as soon as possible. Your exam and imaging today have been reassuring. I also recommend you follow-up with your primary care provider for your flank pain. I also recommend that you follow-up with your primary care as soon as possible as you do have blood in your urine with no kidney obstruction, stone or signs of infection. Please return to the emergency department if you have any worsening symptoms or the development of new symptoms. Referrals: JAMIL GE PA-C [Primary Care Provider] - Follow up as needed
[2020-03-01 08:47] LABS: APPEARANCE,URINE CLEAR; BILIRUBIN,URINE NEGATIVE (NEGATIVE); COLOR,URINE YELLOW; GLUCOSE, URINE NEGATIVE (NEGATIVE); KETONES,URINE NEGATIVE (NEGATIVE); LEUKOCYTE ESTERASE,URINE NEGATIVE (NEGATIVE); NITRITE,URINE NEGATIVE (NEGATIVE); PROTEIN,URINE NEGATIVE (NEGATIVE); URINE SPECIFIC GRAVITY 1.013
[2020-03-01] MEDS ORDERED: HYDROCODONE/ACETAMINOPHEN 5-325 MG TABLET PO ONE (08:50)
[2020-03-01 09:13] LABS: ALBUMIN 3.8 g/dL (3.5-5.0); ALKALINE PHOSPHATASE 66 U/L (38-126); ANION GAP 7 (5-19); ASPARTATE AMINO TRANSFERASE 17 U/L (17-59); BILIRUBIN,DIRECT 0.1 mg/dL (0.0-0.4); BILIRUBIN,TOTAL 0.8 mg/dL (0.2-1.3); BLOOD UREA NITROGEN 16 mg/dL (7-20); CALCIUM 9.6 mg/dL (8.4-10.2); CARBON DIOXIDE 29 mmol/L (22-30); CHLORIDE 100 mmol/L (98-107); GLUCOSE 134 mg/dL (75-110); POTASSIUM 4.6 mmol/L (3.6-5.0)
--- NOTE | 2020-03-01 09:24 | RADIOLOGY REPORT (SQ) ---
EXAM DESCRIPTION: CHEST SINGLE VIEW IMAGES COMPLETED DATE/TIME: 03/01/2020 9:06 am REASON FOR STUDY: back pain, sob COMPARISON: 09/13/2019 chest x-ray and CT imaging. EXAM PARAMETERS: NUMBER OF VIEWS: One view. TECHNIQUE: Single frontal radiographic view of the chest acquired. RADIATION DOSE: NA LIMITATIONS: None. FINDINGS: LUNGS AND PLEURA: No opacities, masses or pneumothorax. No pleural effusion. MEDIASTINUM AND HILAR STRUCTURES: Stable. HEART AND VASCULAR STRUCTURES: Heart normal in size. Normal vasculature. BONES: No acute findings. HARDWARE: Stable midline surgical changes. OTHER: No other significant finding. IMPRESSION: Stable radiographic appearance of the chest. TECHNICAL DOCUMENTATION: JOB ID: [id number] 2010 [employer]- All Rights Reserved Reading location - IP/workstation name: [email or web address]
--- NOTE | 2020-03-01 09:34 | RADIOLOGY REPORT (SQ) ---
EXAM DESCRIPTION: CT ABD/PELVIS NO ORAL OR IV IMAGES COMPLETED DATE/TIME: 03/01/2020 9:20 am REASON FOR STUDY: bilateral flank pain COMPARISON: 06/12/2018 TECHNIQUE: CT scan of the abdomen and pelvis performed without intravenous or oral contrast. Images reviewed with lung, soft tissue, and bone windows. Reconstructed coronal and sagittal MPR images revi ewed. All images stored on PACS. All CT scanners at this facility use dose modulation, iterative reconstruction, and/or weight based d osing when appropriate to reduce radiation dose to as low as reasonably achievable (ALARA). [facility]: Dose Right [facility]: CareDose [facility]: Dose Right [facility]: Teradose 4D [facility]: Smart [place]g RADIATION DOSE: CT Rad equipment meets quality standard of care and radiation dose reduction techniq ues were employed. CTDIvol: 6.5 mGy. DLP: 350 mGy-cm.mGy. LIMITATIONS: None. FINDINGS: LOWER CHEST: No significant findings. No nodules or infiltrates. NON-CONTRASTED LIVER, SPLEEN, ADRENALS: Evaluation limited by lack of IV contrast. No identified sign ificant masses. PANCREAS: No masses. No peripancreatic inflammatory changes. GALLBLADDER: Gallstones. No inflammatory changes to suggest cholecystitis. RIGHT KIDNEY AND URETER: No suspicious masses. Assessment limited by lack of IV contrast. No signif icant calcifications. All LEFT KIDNEY AND URETER: No suspicious masses. Assessment limited by lack of IV contrast. No signifi cant calcifications. No hydronephrosis or hydroureter. AORTA AND RETROPERITONEUM: No aneurysm. No retroperitoneal masses or adenopathy. BOWEL AND PERITONEAL CAVITY: Scattered colonic diverticula without focal inflammatory changes. No ma ss. No obstruction. APPENDIX: Not visualized. PELVIS, BLADDER, AND ABDOMINAL WALL:Small fat containing right inguinal hernia. Left inguinal surgic al clips. Prominent prostate. The bladder is unremarkable. BONES: No significant findings. OTHER: No other significant finding. IMPRESSION: No evidence of urolithiasis or obstructive uropathy. No evidence of acute intra-abdomin al infectious/inflammatory process. Cholelithiasis without evidence of cholecystitis. COMMENT: Quality ID # [id number]: Final reports with documentation of one or more dose reduction techniques (e.g., Automated exposure control, adjustment of the mA and/or kV according to patient size, use of iterative reconstruction technique) TECHNICAL DOCUMENTATION: JOB ID: [id number] 2010 [employer]- All Rights Reserved Reading location - IP/workstation name: [email or web address]
--- NOTE | 2020-03-01 09:46 | EKG REPORT ---
SEVERITY:- ABNORMAL ECG - SINUS RHYTHM VENTRICULAR PREMATURE COMPLEX LEFT ATRIAL ABNORMALITY LEFT ANTERIOR FASCICULAR BLOCK : Confirmed by: Mikayla Burciaga MD 01-Mar-2020 09:45:23
--- NOTE | 2020-03-01 11:07 | RADIOLOGY REPORT (SQ) ---
EXAM DESCRIPTION: U/S ABDOMEN LIMITED W/O DOP IMAGES COMPLETED DATE/TIME: 03/01/2020 10:54 am REASON FOR STUDY: gallstone eval COMPARISON: 03/01/2020 CT abdomen and pelvis TECHNIQUE: Dynamic and static grayscale images acquired of the abdomen and recorded on PACS. Ryano donna selected color Doppler and spectral images recorded. LIMITATIONS: None. FINDINGS: PANCREAS: Not adequately visualized on today's examination. LIVER: No masses. Echotexture normal. LIVER VASCULATURE: Normal directional flow of the main portal vein and hepatic veins. GALLBLADDER: Gallstone(s). No pericholecystic fluid. No wall thickening. ULTRASOUND-DETECTED MORIN'S SIGN: Negative. INTRAHEPATIC DUCTS AND COMMON DUCT: CBD and intrahepatic ducts normal caliber. No filling defects. INFERIOR VENA CAVA: Normal flow. AORTA: No aneurysm. RIGHT KIDNEY: Normal size. Normal echogenicity. No solid or suspicious masses. No hydronephrosis. No calcifications. PERITONEAL AND RIGHT PLEURAL SPACE: No ascites or effusions. OTHER: No other significant findings. IMPRESSION: Cholelithiasis without evidence of cholecystitis. TECHNICAL DOCUMENTATION: JOB ID: [id number] [employer]- All Rights Reserved Reading location - IP/workstation name: [email or web address]
[2020-03-01 12:39] VITALS: BP 150/69
== END 2020-03-01 12:39 | disposition home or self-care (01) ==
LOC: ER 05:58
DX: R10.9 Unspecified abdominal pain (principal); R07.9 Chest pain, unspecified; I11.0 Hypertensive heart disease with heart failure; I50.9 Heart failure, unspecified; E78.00 Pure hypercholesterolemia, unspecified; E11.9 Type 2 diabetes mellitus without complications; I25.2 Old myocardial infarction
CPT/HCPCS: 93005; 99284; 36415; 87086; 83690; 85025; 80053; 81001; 84484; 71045; 76705; 74176; 93010; A9270